=== PATIENT | male | born 1945 | race Caucasian/White ===

== ENCOUNTER 2024-04-20 15:25 | Inpatient (IN) ==
[2024-04-20 16:15] LABS: Basophils # (auto) 0.04 K/uL (0.00-0.20); Basophils % (auto) 0.5 %; Eosinophils # (auto) 0.05 K/uL (0.00-0.50); Eosinophils % (auto) 0.6 %; Hematocrit (blood only) 40.7 % (42.0-52.0); Hemoglobin 13.8 g/dl (14.0-18.0); Immature Granulocytes # (auto) 0.01 K/uL (0.01-0.20); Immature Granulocytes % (auto) 0.1 %; Lymphocytes # (auto) 0.97 K/uL (1.20-3.40); Lymphocytes % (auto) 11.5 %; Mean Corpuscular Hemoglobin 31.4 pg (25.0-34.0); Mean Corpuscular Hgb Conc 33.9 g/dL (32.0-36.0); Mean Corpuscular Volume 92.5 fL (80.0-100.0); Mean Platelet Volume 10.2 fL (9.4-12.4); Monocytes # (auto) 0.63 K/uL (0.11-0.59); Monocytes % (auto) 7.5 %; Neutrophils # (auto) 6.73 K/uL (1.40-6.50); Neutrophils % (auto) 79.8 %; Platelet Count 239 K/uL (130-400); RDW Coefficient of Variation 12.4 % (11.5-14.5); RDW Standard Deviation 42.5 fL (36.4-46.3); White Blood Count 8.43 K/ul (4.8-10.8)
[2024-04-20 16:27] LABS: Albumin Globulin Ratio 1.4 (0.9-2); Albumin Level 4.5 gm/dl (3.4-5.0); BUN Creatinine Ratio 34.3 (10-20); Bilirubin,Total 1.6 mg/dl (0.2-1.0); Calcium 10.3 mg/dl (8.6-10.3); Creatinine Clr Calc Pharmacy 40.3 ml/min; Globulin 3.3 gm/dl (2.5-4.0); Potassium 4.5 mmol/L (3.5-5.1); Total Protein 7.8 gm/dl (6.0-8.3)
[2024-04-20 16:35] LABS: Appearance Urine Clear (Clear); Bacteria Urine Automated None Seen (None Seen); Bilirubin Urine Negative (Negative); Blood Urine Negative (Negative); Color Urine Yellow; Epithelial Cell Urine Auto 0-2 /hpf (0-2); Glucose Urine UA 3+ (Negative); Ketones Urine Trace (Negative); Leukocyte Esterase Urine Negative (Negative); Nitrite Urine Negative (Negative); Protein Urine Trace (Negative); RBC Urine Automated 0-2 /hpf (0-2); Specific Gravity Urine 1.034 (1.000-1.030); Urobilinogen Urine Negative (Negative); WBC Urine Automated 0-5 /hpf (0-5)
[2024-04-20] MEDS: SODIUM CHLORIDE 0.9% 500 ML IV ONE (17:10)
--- NOTE | 2024-04-20 17:30 | Emergency Department Note ---
Impression & Plan Pancreatic mass, KATY (acute kidney injury), Ileus, Constipation ED Provider Note NAME: MADELIN AMIN AGE: 78 SEX: M : 1945 ARRIVES VIA: Walk-In INFORMANT: Patient ED PROVIDER(S): Rodo Marx MD CHIEF COMPLAINT: hyperglycemia, referred. PLAN: Disposition: Admit MEDICAL DECISION MAKING: The patient is a pleasant 78-year-old gentleman with a past medical history of type 2 diabetes, hypertension who presents to the emergency department via walk- in, accompanied by his for evaluation of ongoing elevated blood sugars over the past couple of months in the setting of having medication changes from metformin to Januvia. Patient reports frequent urination and fatigue. He reports chronic symptoms of constipation where he does move his bowels but has been dealing with hard stool and straining. He reports he was seen by his PCP office a week or so ago and had x-rays obtained. He reports CT imaging was recommended but he "wanted to think about it". He reports some nausea and poor appetite as well as a 40 pound weight loss over the past year. He reports feeling nauseated at times and having abdominal fullness but he denies any vomiting or abdominal pain. He denies any fevers or night sweats. On evaluation the patient is no acute distress, afebrile heart in the 110s and vital signs otherwise stable. Appears clinically dry. He appears cachectic. He has mild fullness of the abdomen but it is soft and nontender. No guarding or rebound. WBC and platelets within normal limits. H/H similar to prior range values. Glucose elevated in the 250s however chemistry without metabolic acidosis. Hemoglobin A1c is pending. Creatinine 1.43, slightly increased from prior with BUN of 49 and BUN/creatinine 34 suggestive of dehydration. Total bili 1.6, nonspecific and LFTs otherwise unremarkable. Lipase is normal. UA with trace ketones consistent patient's clinically dry appearance. No evidence of infection. Given the patient's report of unintended weight loss we agreed to proceed with CT of the abdomen pelvis. Findings are notable for a newly identified spiculated mass measuring approximately 5 cm and suspected to arise from the pancreatic tail. Additional description of suspected ileus versus bowel obstruction is noted however clinically the patient does not exhibit signs or symptoms of bowel obstruction and likely ileus. Given the patient's increased blood sugars over the past several weeks in the setting of CT imaging demonstrated new pancreatic mass patient and his agree with plan for admission for further management evaluation. [facility] who will evaluate the patient for admission. Further management per admitting team. Triage Nursing notes reviewed and agree them. Prior/external medical records reviewed Vital Signs: reviewed Differential diagnosis: Infection, dehydration, metabolic abnormality, hypo/hyperglycemia, electrolyte disturbance, anemia, hypoxia, cardiac sources, intracerebral event, toxicologic, neurologic, as well as other pathologies. ER treatment provided: See below. Diagnostics interpreted by me: Cardiac Monitoring: An order for continuous cardiac monitoring was placed and demonstrated Sinus tachycardia, 104 bpm, no ectopy, no overt ST elevation or depression. Laboratory studies: See below Imaging studies: See below Consultation(s): Case was discussed with Dr. Moreno, [facility] hospitalist, who will evaluate the patient for admission. HPI: The patient is a pleasant 78-year-old gentleman with a past medical history of type 2 diabetes, hypertension who presents to the emergency department via walk-in, accompanied by his for evaluation of ongoing elevated blood sugars over the past couple of months in the setting of having medication changes from metformin to Januvia. Patient reports frequent urination and fatigue. He reports chronic symptoms of constipation where he does move his bowels but has been dealing with hard stool and straining. He reports he was seen by his PCP office a week or so ago and had x-rays obtained. He reports CT imaging was recommended but he "wanted to think about it". He reports some nausea and poor appetite as well as a 40 pound weight loss over the past year. He reports feeling nauseated at times and having abdominal fullness but he denies any vomiting or abdominal pain. He denies any fevers or night sweats. ROS: See above HPI for pertinent positives & negatives. A total of 10 systems reviewed and were otherwise negative. VITALS:See Below PHYSICAL EXAMINATION: GENERAL: Awake, alert, in no distress, cachectic. HENT: Normocephalic, atraumatic. Oropharynx with dry mucous membranes and otherwise unremarkable. EYES: Normal conjunctiva. Sclera non-icteric. NECK: Supple. No nuchal rigidity. FROM. No JVD. RESPIRATORY: Clear to auscultation. CARDIAC: Tachycardic rate, normal rhythm. Extremities warm and well perfused. Pulses equal. ABDOMEN: Soft with mild lower abdominal fullness but non-distended. No tenderness to palpation. No rebound or guarding. MUSCULOSKELETAL: Chest examination reveals no tenderness. The back is symmetrical on inspection without obvious abnormality. There is no CVA tenderness to palpation. No joint edema. LOWER EXTREMITIES: Calves are equal size bilaterally and non-tender. No edema. No discoloration. NEURO: Normal sensorium. No sensory or motor deficits noted. SKIN: No rash or jaundice noted. 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, with necrosis of bone (Acute) Acquired foot deformity (Chronic) Medical History Left otitis media with effusion Right otitis media with effusion Multiple lipomas Arthritis Surgical History History of ankle surgery H/O carpal tunnel repair S/P hip replacement History of ankle joint replacement Social History Smoking Status: Never smoker Hx Alcohol Use: Yes Alcohol type: wine Alcohol Intake Frequency: Monthly or Less Alcohol Intake Frequency Comment: Weekly Hx Substance Use: Yes (THC cream on left ankle) Prescribed Medications: Other Preferred Language: Wallisian Communication Ability: Effective Visual Impairment: Limited Hearing Ability: Normal Beliefs That Will Affect Care: None marital status: Current Living Situation: Spouse current occupational status: retired 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 Feels Safe at Home: Yes Diet: diabetic Allergies Allergies Allergy/AdvReac Type Severity Reaction Status Date / Time avocado Allergy Mild SWELLING Verified 09/11/22 09:06 lisinopril AdvReac Intermediate cough Verified 09/11/22 09:06 losartan AdvReac Intermediate cough Verified 09/11/22 09:06 Home Meds Home Medications Medication Instructions Recorded Confirmed antiarthritic combination no.2 900 900 mg PO .D 02/05/20 09/11/22 mg tablet (glucosamine-chondroitin) coenzyme Q10 75 mg capsule (Ultra 75 mg PO DAILY 02/05/20 09/11/22 CoQ10) multivitamin (Daily Multi-Vitamin 1 tab PO DAILY 02/05/20 09/11/22 tablet) saw palmetto 160 mg capsule 160 mg PO DAILY 02/05/20 09/11/22 irbesartan 150 mg tablet 150 mg PO DAILY 05/18/22 09/11/22 metformin 500 mg tablet 500 mg PO BID 05/18/22 09/11/22 cholecalciferol (vitamin D3) 25 25 mcg PO DAILY 07/05/22 09/11/22 mcg (1,000 unit) capsule oxymetazoline 0.05 % nasal spray 2 spray intranasal Q12H PRN 08/11/22 09/11/22 (Afrin (oxymetazoline)) doxycycline hyclate 100 mg capsule 100 mg PO BID 08/16/22 09/11/22 Results & Data (ED) Vital Signs Vital Signs - 24 hr 04/20/24 15:33 04/20/24 17:09 04/20/24 17:23 Temperature 36.4 C L Temperature Source Temporal Artery Scan Pulse Rate 114 H 97 H Pulse Rate [Apical] 104 H Respiratory Rate 18 14 Respiratory Effort / Characteristics Non-Labored Respiratory Depth Normal Respiratory Pattern Regular Blood Pressure 113/71 Blood Pressure [Right Arm] 127/92 Blood Pressure Mean 85 Blood Pressure Mean [Right Arm] 103 Blood Pressure Position [Right Arm] Lying Pulse Oximetry 95 97 Oxygen Delivery Method Room Air Room Air Sepsis Recent Fever Within 48 Hours No Sepsis New/Unexplained Change in Mental Status N/A Sepsis Action Taken by Nursing No Action Required 04/20/24 19:07 Temperature Temperature Source Pulse Rate Pulse Rate [Apical] 104 H Respiratory Rate 24 Respiratory Effort / Characteristics Non-Labored Respiratory Depth Normal Respiratory Pattern Regular Blood Pressure Blood Pressure [Right Arm] 144/92 H Blood Pressure Mean Blood Pressure Mean [Right Arm] 109 Blood Pressure Position [Right Arm] Pulse Oximetry 96 Oxygen Delivery Method Room Air Sepsis Recent Fever Within 48 Hours Sepsis New/Unexplained Change in Mental Status Sepsis Action Taken by Nursing Laboratory Data Attestation: I reviewed the patient's lab results. 04/20/24 15:57 04/20/24 15:57 Lab Results 04/20/24 04/20/24 04/20/24 Range/Units 15:40 15:57 15:59 WBC 8.43 (4.8-10.8) K/ul RBC 4.40 L (4.70-6.10) M/uL Hgb 13.8 L (14.0-18.0) g/dl Hct 40.7 L (42.0-52.0) % MCV 92.5 (80.0-100.0) fL MCH 31.4 (25.0-34.0) pg MCHC 33.9 (32.0-36.0) g/dL RDW Std Deviation 42.5 (36.4-46.3) fL RDW Coeff of Олег 12.4 (11.5-14.5) % Plt Count 239 (130-400) K/uL MPV 10.2 (9.4-12.4) fL Immature Gran % (Auto) 0.1 % Neut % (Auto) 79.8 % Lymph % (Auto) 11.5 % [place] % (Auto) 7.5 % Eos % (Auto) 0.6 % Baso % (Auto) 0.5 % Neut # (Auto) 6.73 H (1.40-6.50) K/uL Lymph # (Auto) 0.97 L (1.20-3.40) K/uL [place] # (Auto) 0.63 H (0.11-0.59) K/uL Eos # (Auto) 0.05 (0.00-0.50) K/uL Baso # (Auto) 0.04 (0.00-0.20) K/uL Immature Gran # (Auto) 0.01 (0.01-0.20) K/uL Sodium 135 L (136-145) mmol/L Potassium 4.5 (3.5-5.1) mmol/L Chloride 102 (98-107) mmol/L Carbon Dioxide 23 (21-32) mmol/L Anion Gap 10 (3-11) BUN 49 H (6-23) mg/dl Creatinine 1.43 H (0.6-1.4) mg/dl Est Cr Clr Drug Dosing 40.3 ml/min eGFR 50.15 BUN/Creatinine Ratio 34.3 H (10-20) Glucose 257 H (70-99(Fasting)) mg/dl POC Glucose 235 H (70-99) mg/dl Calcium 10.3 (8.6-10.3) mg/dl Total Bilirubin 1.6 H (0.2-1.0) mg/dl AST 12 L (13-39) U/L ALT 12 (7-52) U/L Alkaline Phosphatase 82 (34-104) U/L Total Protein 7.8 (6.0-8.3) gm/dl Albumin 4.5 (3.4-5.0) gm/dl Globulin 3.3 (2.5-4.0) gm/dl Albumin/Globulin Ratio 1.4 (0.9-2) Lipase 14 (11-82) U/L Urine Color Yellow Urine Appearance Clear (Clear) Urine pH 5.0 (4.5-7.5) Ur Specific [place] 1.034 H (1.000-1.030) Urine Protein Trace H (Negative) Urine Glucose (UA) 3+ H (Negative) Urine Ketones Trace H (Negative) Urine Blood Negative (Negative) Urine Nitrite Negative (Negative) Urine Bilirubin Negative (Negative) Urine Urobilinogen Negative (Negative) Ur Leukocyte Esterase Negative (Negative) Urine WBC (Auto) 0-5 (0-5) /hpf Urine RBC (Auto) 0-2 (0-2) /hpf U Hyaline Cast (Auto) 6-10 H (0-2) /lpf U Epithel Cells (Auto) 0-2 (0-2) /hpf Urine Bacteria (Auto) None Seen (None Seen) Administered Medications Discontinued Medications Sodium Chloride (Nss) 500 mls @ 999 mls/hr IV .Q31M ONE Stop: 04/20/24 17:25 Last Infusion: 04/20/24 19:00 Dose: Infused Documented By: Admin: 04/20/24 17:10 Dose: 999 mls/hr Documented By: KAILASH Imaging Data Radiologist's Impression: Abdomen/Pelvis CT 04/20/24 17:27 CT abdomen without EXAMINATION: Abdomen and pelvis CT without CLINICAL HISTORY: Pain PRIORS: None TECHNIQUE: Contiguous axial images were obtained through the abdomen and pelvis without the use of intravenous contrast. Sagittal and coronal reformations are supplied. FINDINGS: Lung bases unremarkable. Evaluation of solid organs is limited without the use of intravenous contrast. Allowing for this, the liver, spleen, and kidneys are morphologically unremarkable. Allowing for the absence of intravenous contrast a spiculated soft tissue mass is present in the left retroperitoneum or pancreas, image 104, series 3 and image 45, series 300 and image 68, series 301, possibly arising from the pancreatic tail. This measures approximately 5.0 cm in anteroposterior dimension by 6.5 cm in transverse dimension by 4.4 cm in craniocaudal dimension. The pancreas appears atrophic. Adjacent adenopathy present. Multiple prominent lymph nodes present in the mesentery of the right lower quadrant. Moderate to advanced atherosclerotic disease. A moderate amount of formed stool in the sigmoid colon. Moderate osseous demineralization noted with advanced degenerative change of the lumbar spine Moderate ascites is present. Moderate free fluid in the pelvis. Left total hip arthroplasty present. The noncontrast enhanced kidneys are symmetric with nonobstructing calcifications noted. A moderate amount of gas and stool present in the colon. Multiple dilated loops of fluid-filled small bowel are present, measuring up to 2.8 cm Dilated loops of large bowel present, involving the ascending colon measuring up to 7.9 cm. No extraluminal gas is identified. IMPRESSION: 1. Spiculated soft tissue mass, possibly arising from the pancreatic tail, not further characterized without intravenous contrast, concerning for malignancy with dilated fluid and gas-filled loops of large and small bowel which may suggest ileus versus obstruction. Please correlate with clinical history. 2. Moderate ascites and adenopathy present. ACT 112: Positive. There are findings on this examination that require communication between the performing entity and the patient following Patient Test Result Information Act ([place] ACT 112) guidelines. Electronically signed by Nai David 04-20-2024 6:29 PM Discharge Plan Visit Data Chief Complaint: Hyperglycemia Stated Complaint: POS KETOASISDOSIS, DIABETIC ED Provider: Rodo Marx Discharge Problem: Pancreatic mass, KATY (acute kidney injury), Ileus, Constipation Forms Stand Alone Forms: [facility] [employer] Prescriptions Prescriptions: No Action multivitamin [Daily Multi-Vitamin] Tablet 1 tab PO DAILY Ultra CoQ10 75 mg capsule 75 mg PO DAILY glucosamine-chondroitin 900 mg tablet 900 mg PO .D saw palmetto 160 mg capsule 160 mg PO DAILY Rx Instructions: give with meal/snack cholecalciferol (vitamin D3) 25 mcg (1,000 unit) capsule 25 mcg PO DAILY irbesartan 150 mg tablet 150 mg PO DAILY metformin 500 mg tablet 500 mg PO BID oxymetazoline [Afrin (oxymetazoline)] 0.05 % spray,non-aerosol 2 spray intranasal Q12H PRN Rx Instructions: prior to hyperbaric oxygen therapy as needed for congestion doxycycline hyclate 100 mg capsule 100 mg PO BID Referrals Referrals: Aoms Gomez DO [Primary Care Provider] - Discharge Problem: Constipation Qualifiers: Constipation type: unspecified constipation type Qualified Code(s): K59.00 - Constipation, unspecified
--- NOTE | 2024-04-20 18:34 | CT Scan Report ---
CT abdomen without EXAMINATION: Abdomen and pelvis CT without CLINICAL HISTORY: Pain PRIORS: None TECHNIQUE: Contiguous axial images were obtained through the abdomen and pelvis without the use of intravenous contrast. Sagittal and coronal reformations are supplied. FINDINGS: Lung bases unremarkable. Evaluation of solid organs is limited without the use of intravenous contrast. Allowing for this, the liver, spleen, and kidneys are morphologically unremarkable. Allowing for the absence of intravenous contrast a spiculated soft tissue mass is present in the left retroperitoneum or pancreas, image 104, series 3 and image 45, series 300 and image 68, series 301, possibly arising from the pancreatic tail. This measures approximately 5.0 cm in anteroposterior dimension by 6.5 cm in transverse dimension by 4.4 cm in craniocaudal dimension. The pancreas appears atrophic. Adjacent adenopathy present. Multiple prominent lymph nodes present in the mesentery of the right lower quadrant. Moderate to advanced atherosclerotic disease. A moderate amount of formed stool in the sigmoid colon. Moderate osseous demineralization noted with advanced degenerative change of the lumbar spine Moderate ascites is present. Moderate free fluid in the pelvis. Left total hip arthroplasty present. The noncontrast enhanced kidneys are symmetric with nonobstructing calcifications noted. A moderate amount of gas and stool present in the colon. Multiple dilated loops of fluid-filled small bowel are present, measuring up to 2.8 cm Dilated loops of large bowel present, involving the ascending colon measuring up to 7.9 cm. No extraluminal gas is identified. IMPRESSION: 1. Spiculated soft tissue mass, possibly arising from the pancreatic tail, not further characterized without intravenous contrast, concerning for malignancy with dilated fluid and gas-filled loops of large and small bowel which may suggest ileus versus obstruction. Please correlate with clinical history. 2. Moderate ascites and adenopathy present. ACT 112: Positive. There are findings on this examination that require communication between the performing entity and the patient following Patient Test Result Information Act ([place] ACT 112) guidelines. Electronically signed by Nai David 04-20-2024 6:29 PM
--- NOTE | 2024-04-20 20:11 | History & Physical Report ---
Date of Service April 20, 2024 Assessment & Plan (1) Ileus: Plan Admitting CTAP: 1. Spiculated soft tissue mass, possibly arising from the pancreatic tail, not further characterized without intravenous contrast, concerning for malignancy with dilated fluid and gas-filled loops of large and small bowel which may suggest ileus versus obstruction. Please correlate with clinical history. 2. Moderate ascites and adenopathy present. Pancreatic tail mass Elevated bilirubin level Unintentional weight loss: 40 pound weight loss in the last 6 months, associated with occasional nausea and poor appetite. Patient presents with stomach pain, unintentional weight loss, feeling progressively tired and sleeping a lot. Admitting CTAP as above. Will consult oncology and GI for guidance on further workup. Patient will need CT scan of abdomen pelvis and CT chest with IV contrast to rule out metastasis once renal function is better. Ileus/constipation: pt moving bowels every few days, no belly pain, is moving gas. Will use miralax and dulcolax pr scheduled. follow clinically. Acute kidney injury: Baseline creatinine of 1.0, admitting creatinine of 1.43. Likely prerenal in the setting of poor p.o. intake prior to arrival. CTAP with no hydronephrosis. Continue with IV fluid, hold irbesartan. Labs in AM. Uncontrolled diabetes: In the setting of pancreatic tail mass. Glycemic pharmacy consult. in service educator consult. repeat A1c. Other chronic medical conditions: HTN, HLD, Gout---- continue with/resume home meds as and when able. Patient's home medications: Celecoxib 200 mg daily in the morning, Colace twice a day, empagliflozin 25 mg 1 tab by mouth in the morning, glipizide 5 mg twice a day, irbesartan 75 mg daily. Patient does not take metformin anymore. History of Present Illness Chief Complaint: stomach pain Primary Care Provider: Amos Gomez DO 78-year-old male with PMH of subacute thyroiditis, HLD, idiopathic chronic gout of multiple sites without tophus, diabetes mellitus, chronic rhinitis, severe obstructive sleep apnea, hypertension, constipation, osteomyelitis presents to the ED with complaint of stomach pain for 3 to 4 weeks, feeling tired all the time, sleeping a lot. Patient reports he has occasional nausea and poor appetite since last 6 months and has lost 40 pounds weight in the same duration. Patient denies vomiting. Patient reports stomach pain on and off for 3 to 4 weeks, no radiation. Patient denies fever/sore throat/cough/chest pain/pain or burning while passing urine. Patient reports constipation for about 3 to 4 weeks, is moving gas, denies belly pain but now moving bowels every few days instead of his usual habits of daily. Patient denies smoking/alcohol use/recreational drug use. Medications reviewed with the patient and his at bedside. CT scan of the abdomen pelvis discussed with the patient and his at bedside, further plan of care regarding need for further diagnostic workup while in here for pancreatic tail mass has been explained to them. They voiced understanding. Full code Allergies Allergy/AdvReac Type Severity Reaction Status Date / Time avocado Allergy Mild SWELLING Verified 09/11/22 09:06 lisinopril AdvReac Intermediate cough Verified 09/11/22 09:06 losartan AdvReac Intermediate cough Verified 09/11/22 09:06 Home Medications Medication Instructions Recorded Confirmed Type antiarthritic combination no.2 900 900 mg PO .D 02/05/20 09/11/22 History mg tablet (glucosamine-chondroitin) coenzyme Q10 75 mg capsule (Ultra 75 mg PO DAILY 02/05/20 09/11/22 History CoQ10) multivitamin (Daily Multi-Vitamin 1 tab PO DAILY 02/05/20 09/11/22 History tablet) saw palmetto 160 mg capsule 160 mg PO DAILY 02/05/20 09/11/22 History irbesartan 150 mg tablet 150 mg PO DAILY 05/18/22 09/11/22 History metformin 500 mg tablet 500 mg PO BID 05/18/22 09/11/22 History cholecalciferol (vitamin D3) 25 25 mcg PO DAILY 07/05/22 09/11/22 History mcg (1,000 unit) capsule oxymetazoline 0.05 % nasal spray 2 spray intranasal Q12H PRN 08/11/22 09/11/22 History (Afrin (oxymetazoline)) doxycycline hyclate 100 mg capsule 100 mg PO BID 08/16/22 09/11/22 History Past Med/Surg History Problem List (Updated 04/20/24 @ 19:38 by Rodo Marx MD) Constipation (Acute) Ileus (Acute) KATY (acute kidney injury) (Acute) Pancreatic mass (Acute) 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 HTN (hypertension) Diabetic peripheral neuropathy associated with type 2 diabetes mellitus Tachycardia (Acute) Barotrauma, otic (Acute) 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, with necrosis of bone (Acute) Acquired foot deformity (Chronic) Medical History Left otitis media with effusion Right otitis media with effusion Multiple lipomas Arthritis Surgical History History of ankle surgery H/O carpal tunnel repair S/P hip replacement History of ankle joint replacement Social History Smoking Status: Never smoker Hx Alcohol Use: Yes Alcohol type: wine Alcohol Intake Frequency: Monthly or Less Alcohol Intake Frequency Comment: Weekly Hx Substance Use: Yes (THC cream on left ankle) Prescribed Medications: Other Preferred Language: [place] Rican Communication Ability: Effective Visual Impairment: Limited Hearing Ability: Normal Beliefs That Will Affect Care: None marital status: Current Living Situation: Spouse current occupational status: retired 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 Feels Safe at Home: Yes Diet: diabetic Review of Systems Review of Systems: Negative otherwise mentioned in HPI. Physical Exam Physical Exam: GENERAL: Alert and oriented x3. NAD, on RA. Appears frail/weak/lean and thin. HEENT: No pallor, no icterus. Pupils equal, round and reactive to light. Oral mucosa dry. NECK: No JVD, no neck masses. HEART: S1 and S2 heard. Regular rate and rhythm. HR in 101. No murmur, no gallop. RESPIRATORY SYSTEM: Normal AP diameter. No accessory muscle use. No wheezing, no crackles. ABDOMEN: Soft, bowel sounds present, nontender, no distention. CENTRAL NERVOUS SYSTEM: No facial droop. Speech is clear. Obeys simple commands. Moves extremities. EXTREMITIES: No edema, no erythema seen. Ulnar deviation of b/l hand. No calf tenderness. Results & Data Results & Data Vital Signs (Past 12 Hours) Vital Signs Temp Pulse Pulse Resp BP BP Pulse Ox 04/20/24 19:07 104 H 24 144/92 H 96 04/20/24 17:23 97 H 04/20/24 17:09 104 H 14 127/92 97 04/20/24 15:33 36.4 C L 114 H 18 113/71 95 O2 Del Method 04/20/24 19:07 Room Air 04/20/24 17:23 04/20/24 17:09 Room Air 04/20/24 15:33 Room Air
[2024-04-20] MEDS ORDERED: PHARMACY GLYCEMIC MGMT CONSULT PRN (20:29)
[2024-04-20] MEDS ORDERED: MAGNESIUM HYDROXIDE SUSP 30 ML UDC PO PRN (20:29)
[2024-04-20] MEDS ORDERED: ONDANSETRON INJ 2 MG/ML 2 ML VIAL IV PRN (20:29)
[2024-04-20] MEDS ORDERED: GLUCOSE 40% GEL 15 GM TUBE PO PRN (20:29)
[2024-04-20] MEDS ORDERED: GLUCAGON FOR INJ 1 MG VIAL SQ PRN (20:29)
[2024-04-20] MEDS ORDERED: ALUMINUM/MAGNESIUM SUSP 30 ML UDC PO PRN (20:29)
[2024-04-20] MEDS ORDERED: DEXTROSE 50% 50 ML SYRINGE IV PRN (20:29)
[2024-04-20] MEDS ORDERED: CARBOHYDRATES FOR HYPOGLYCEMIA PO PRN (20:29)
[2024-04-20] MEDS ORDERED: GLUCOSE 10 TAB/TUBE PO PRN (20:29)
[2024-04-20] MEDS: HEPARIN SOD 5,000 UNIT/0.5 ML VIAL SQ SCH (21:47)
[2024-04-20] MEDS: POLYETHYLENE (MIRALAX) 17 GM PACK PO SCH (21:47)
[2024-04-20] MEDS: SODIUM CHLORIDE 0.9% 1,000 ML IV SCH (21:48)
[2024-04-20] MEDS: bisacodyL 10 MG SUPP PR SCH (21:53)
[2024-04-20] MEDS: INSULIN ASPART PER UNIT CHARGE SC SCH (22:00)
[2024-04-21] MEDS: ACETAMINOPHEN 325 MG TAB PO PRN (00:42)
[2024-04-21 06:17] LABS: Hematocrit (blood only) 36.5 % (42.0-52.0); Hemoglobin 12.3 g/dl (14.0-18.0); Mean Corpuscular Hemoglobin 31.3 pg (25.0-34.0); Mean Corpuscular Hgb Conc 33.7 g/dL (32.0-36.0); Mean Corpuscular Volume 92.9 fL (80.0-100.0); Mean Platelet Volume 10.5 fL (9.4-12.4); Platelet Count 182 K/uL (130-400); RDW Coefficient of Variation 12.2 % (11.5-14.5); RDW Standard Deviation 42.3 fL (36.4-46.3); Red Blood Count 3.93 M/uL (4.70-6.10); White Blood Count 4.72 K/ul (4.8-10.8)
[2024-04-21 06:45] LABS: Albumin Globulin Ratio 1.4 (0.9-2); Albumin Level 3.7 gm/dl (3.4-5.0); BUN Creatinine Ratio 35.8 (10-20); Bilirubin,Total 1.5 mg/dl (0.2-1.0); Creatinine Clr Calc Pharmacy 41.5 ml/min; Globulin 2.6 gm/dl (2.5-4.0); Magnesium 2.1 mg/dl (1.7-2.4); Phosphorus 4.1 mg/dl (2.5-4.9); Potassium 4.5 mmol/L (3.5-5.1); Total Protein 6.3 gm/dl (6.0-8.3)
--- NOTE | 2024-04-21 08:12 | Oncology Consultation ---
Date of Consultation April 21, 2024 Assessment & Plan (1) Pancreatic mass: (2) KATY (acute kidney injury): (3) Ileus: Plan 78-year-old gentleman who presented with GI symptoms and imaging suggestive of possible tail of pancreas mass, adenopathy and ascites. CA 19-9 is pending -Recommend considering IR guided diagnostic paracentesis since he has moderate ascites as this would help with diagnosis and staging. If this demonstrates malignancy, would be stage IV for which goals of treatment will be to prolong life and improve symptoms. If ascitic fluid is negative for malignancy, would recommend EUS with biopsy. -If renal function continues to improve, recommend getting CT chest, abdomen and pelvis with contrast for staging purposes as well. Thank you for this consult. Oncology will continue following patient while in the hospital. Please feel free to call if you have any further questions. History of Present Illness Reason for Consultation: Suspected pancreatic mass Attending Physician: Christiano Ayala MD History of Present Illness 78-year-old gentleman with medical history significant for gout, hypertension, right foot osteomyelitis who was admitted to [facility] on 04/20/2024 after presenting to the ER with fatigue, abdominal pain and weight loss. Labs obtained on admission was significant for KATY with creatinine of 1.4 and BUN of 49. CT abdomen and pelvis without contrast revealed spiculated soft tissue mass possibly arising from the pancreatic tail concerning for malignancy with dilated fluid and gas-filled loops of large and small bowel which may suggest ileus versus obstruction, moderate ascites and mesenteric lymphadenopathy. He endorses more than 40 pounds weight loss over the past 6 months. Also complains of fatigue, poor appetite. Was diagnosed with diabetes about a year ago. Allergies Allergy/AdvReac Type Severity Reaction Status Date / Time avocado Allergy Mild SWELLING Verified 09/11/22 09:06 lisinopril AdvReac Intermediate cough Verified 09/11/22 09:06 losartan AdvReac Intermediate cough Verified 09/11/22 09:06 Home Medications Medication Instructions Recorded Confirmed Type celecoxib 200 mg capsule 200 mg PO DAILY 04/21/24 04/21/24 History docusate sodium 100 mg capsule 100 mg PO BID 04/21/24 04/21/24 History empagliflozin 25 mg tablet 25 mg PO DAILY 04/21/24 04/21/24 History glipizide 5 mg tablet 5 mg PO BID 04/21/24 04/21/24 History Patient History Medical History Left otitis media with effusion Right otitis media with effusion Multiple lipomas Arthritis Surgical History History of ankle surgery H/O carpal tunnel repair S/P hip replacement History of ankle joint replacement Social History Smoking Status: Never smoker Hx Alcohol Use: Yes Alcohol type: beer Alcohol Intake Frequency: Monthly or Less Alcohol Intake Frequency Comment: Weekly Hx Substance Use: Yes Prescribed Medications: Other Substance Use Type Other:: Marijuana via cream to feet Preferred Language: Luxembourgish Communication Ability: Effective Visual Impairment: Limited Hearing Ability: Normal Comic Artist Required: No Beliefs That Will Affect Care: None marital status: Current Living Situation: Spouse current occupational status: retired 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 Other Information That Helps Us Care for You: No Feels Safe at Home: Yes Safety Concerns: Feels Safe At This Time Diet: diabetic Assistive Devices: Glasses Results & Data Vital Signs (Past 12 Hours) Vital Signs Temp Pulse Pulse Pulse Resp BP Pulse Ox 04/21/24 07:42 36.5 C 86 16 115/70 98 04/21/24 07:00 90 04/21/24 03:01 36.3 C L 94 H 18 102/68 94 04/20/24 23:45 36.6 C 78 16 134/85 92 04/20/24 23:19 97 H 04/20/24 21:45 97 H 12 135/82 95 04/20/24 21:22 97 H O2 Del Method 04/21/24 07:42 Room Air 04/21/24 07:00 04/21/24 03:01 Room Air 04/20/24 23:45 Room Air 04/20/24 23:19 04/20/24 21:45 04/20/24 21:22
--- NOTE | 2024-04-21 08:12 | Hospitalist Progress Note ---
Date of Service April 21, 2024 Assessment & Plan (1) Ileus: Plan This is a 78-year-old male who has a significant past medical history of T2DM, HTN, idiopathic chronic gout, constipation, EDWARD, generalized arthritis, history osteomyelitis who presented to ED 2/2 stomach pain x 3-4 weeks, fatigue and weight loss of 40lbs in 6 months. Admitting CTAP: 1. Spiculated soft tissue mass, possibly arising from the pancreatic tail, not further characterized without intravenous contrast, concerning for malignancy with dilated fluid and gas-filled loops of large and small bowel which may suggest ileus versus obstruction. Please correlate with clinical history. 2. Moderate ascites and adenopathy present. Pancreatic tail mass Elevated bilirubin level Unintentional weight loss: 40 pound weight loss in the last 6 months, associated with occasional nausea and poor appetite. Patient presents with stomach pain, unintentional weight loss, feeling progressively tired and sleeping a lot. Admitting CTAP as above. Will consult oncology and GI for guidance on further workup - appreciate recs CEA pending T bili stable at 1.5, no jaundice Patient will need CT scan of abdomen pelvis and CT chest with IV contrast to rule out metastasis once renal function is better. Will await further recs from specialists to determine what testing to be done inpt obtain PT/OT consults, anticipate d/c home when plan in place Ileus/constipation: pt moving bowels every few days, no belly pain, is moving gas. He had multiple episodes of fecal incontinence overnight, will resume home colace, check KUB Acute kidney injury: Baseline creatinine of 1.0, admitting creatinine of 1.43. Mild improvement, Likely prerenal in the setting of poor p.o. intake prior to arrival. CTAP with no hydronephrosis. Continue with IV fluid. Uncontrolled diabetes: In the setting of pancreatic tail mass. Glycemic pharmacy consult. perinatal educator consult. repeat A1c. Severe protein calorie malnutrition: in setting of suspected underlying malignancy, consult machine puller HTN: prior hx, previously on irbesartan but currently not taking HLD: currently not on meds, outpt with elevated total chol 245, ldl 153 - will defer tx to outpt team Other chronic medical conditions: HTN, HLD, Gout---- continue with/resume home meds as and when able. DVT ppx: SQ heparin FULL CODE PCP: Amanda Moeller Dispo: admit to med tele, not yet medically ready for discharge Pt was seen and examined in collaboration with Dr. Ayala, please see addendum I spent a total of 52 minutes coordinating, documenting and providing care for this patient excluding time spent in the performance of separately billed servic es or time spent by another provider/QHP. Admission and Anticipated Discharge Date Admission Date: April 20, 2024 Supervising Physician Co-Signing Physician Notes Pt seen and examined by va, care coordinated w/ B. GRACE Valdes, pls refer to her note above for further detail. Pt had several loose stools, feels abdominal pain has significantly improved. Currently lying in bed in NAD. Pt's present at the bedside and also provides history. Pt seen by GI - plan for outpt GI follow up. EUS and FNA biopsy. Oncology and surgery also consulted. MD Lucy Subjective Pt was seen in 285-1. He reports a few episodes of fecal incontinence last night after bowel meds. He is passing minimal flatus. He denies f/c/s, chest pain, sob. overall poor appetite. He is down regarding all of his latest news. He lives with his at home. Review of Systems Review of Systems: All systems reviewed & are unremarkable except as noted in HPI & below Physical Exam Physical Exam: Gen: WD/WN, NAD, A&O x3 HEENT: Normocephalic, atraumatic, conjunctivae moist, sclerae anicteric, mucous membranes moist. Lung: Clear to Auscultation bilaterally, no wheezes/rales/rhonchi Heart: Regular rate, regular rhythm, no murmurs, rubs, or gallops Abdomen: Soft, NT, ND +BS x 4 Extremities: No edema Skin: Warm, no rash, negative turgor. Results & Data Results & Data Vital Signs (Past 12 Hours) Vital Signs Temp Pulse Pulse Pulse Resp BP Pulse Ox 04/21/24 07:42 36.5 C 86 16 115/70 98 04/21/24 07:00 90 04/21/24 03:01 36.3 C L 94 H 18 102/68 94 04/20/24 23:45 36.6 C 78 16 134/85 92 04/20/24 23:19 97 H 04/20/24 21:45 97 H 12 135/82 95 04/20/24 21:22 97 H O2 Del Method 04/21/24 07:42 Room Air 04/21/24 07:00 04/21/24 03:01 Room Air 04/20/24 23:45 Room Air 04/20/24 23:19 04/20/24 21:45 04/20/24 21:22 Laboratory Results Short CBC 04/20/24 04/21/24 Range/Units 15:57 05:49 WBC 8.43 4.72 L (4.8-10.8) K/ul Hgb 13.8 L 12.3 L (14.0-18.0) g/dl Hct 40.7 L 36.5 L (42.0-52.0) % Plt Count 239 182 (130-400) K/uL BMP 04/20/24 04/21/24 15:57 05:49 Sodium 135 L 136 Potassium 4.5 4.5 Chloride 102 104 Carbon Dioxide 23 20 L BUN 49 H 49 H Creatinine 1.43 H 1.37 Glucose 257 H 193 H Calcium 10.3 9.0 Liver Function 04/20/24 04/21/24 Range/Units 15:57 05:49 Total Bilirubin 1.6 H 1.5 H (0.2-1.0) mg/dl AST 12 L 10 L (13-39) U/L ALT 12 9 (7-52) U/L Alkaline Phosphatase 82 64 (34-104) U/L Albumin 4.5 3.7 (3.4-5.0) gm/dl Urine 04/20/24 Range/Units 15:59 Urine Color Yellow Urine Appearance Clear (Clear) Urine pH 5.0 (4.5-7.5) Ur Specific [place] 1.034 H (1.000-1.030) Urine Protein Trace H (Negative) Urine Glucose (UA) 3+ H (Negative) I have independently reviewed and interpreted patient's CBC, BMP, A1C, Mag Medications Administered Current Inpatient Medications Acetaminophen (Acetaminophen 325 Mg Tab) 650 mg PO Q4H PRN PRN Reason: Pain or Fever Stop: 05/20/24 20:28 Last Admin: 04/21/24 00:42 Dose: 650 mg Al Hydrox/Mg Hydrox/Simethicone (Aluminum/Magnesium Susp 30 Ml Udc) 15 ml PO Q4H PRN PRN Reason: Dyspepsia Stop: 05/20/24 20:28 Dextrose (Dextrose 50% 50 Ml Syringe) 25 - 50 ml IV UD PRN; Protocol PRN Reason: Hypoglycemia Protocol Stop: 05/20/24 20:28 Glucagon (Glucagon For Inj 1 Mg Vial) 1 mg SQ UD PRN; Protocol PRN Reason: Hypoglycemia Protocol Stop: 05/20/24 20:28 Glucose (Glucose 40% Gel 15 Gm Tube) 15 - 30 gm PO UD PRN; Protocol PRN Reason: Hypoglycemia Protocol Stop: 05/20/24 20:28 Glucose (Glucose 10 Tab/Tube) 4 - 8 tab PO UD PRN; Protocol PRN Reason: Hypoglycemia Protocol Stop: 05/20/24 20:28 Heparin Sodium (Porcine) (Heparin Sod 5,000 Unit/0.5 Ml Vial) 5,000 units SQ Q12 TALISHA Stop: 05/20/24 20:59 Last Admin: 04/21/24 09:15 Dose: 5,000 units Sodium Chloride (Nss) 1,000 mls @ 70 mls/hr IV .[id number] TALISHA Stop: 04/22/24 00:49 Last Admin: 04/20/24 21:48 Dose: 70 mls/hr Insulin Aspart (Insulin Aspart Per Unit Charge) 0 units SC ACHS TALISHA Stop: 05/20/24 20:59 Last Admin: 04/21/24 09:15 Dose: 2 units Magnesium Hydroxide (Magnesium Hydroxide Susp 30 Ml Udc) 30 ml PO Q12H PRN PRN Reason: Constipation Stop: 05/20/24 20:28 Miscellaneous (Carbohydrates For Hypoglycemia ) 15 - 30 gm PO UD PRN PRN Reason: Hypoglycemia Protocol Stop: 05/20/24 20:28 Miscellaneous Information (Pharmacy Glycemic Mgmt Consult) 1 each N/A UD PRN PRN Reason: Consult Stop: 05/20/24 20:28 Ondansetron HCl (Ondansetron Inj 2 Mg/Ml 2 Ml Vial) 4 mg IV Q6H PRN PRN Reason: Nausea Stop: 05/20/24 20:28
--- NOTE | 2024-04-21 10:50 | Pharmacy Report ---
Pharmacy Glycemic Short Note 2 - Date of Service April 21, 2024 - Glycemic Short BSG Results (Last 24 hours): 04/20/24 04/20/24 04/20/24 15:40 15:57 21:03 Glucose 257 H POC Glucose 235 H 179 H 04/20/24 04/21/24 04/21/24 23:05 05:49 08:08 Glucose 193 H POC Glucose 159 H 172 H OUTPATIENT ANTIDIABETIC REGIMEN: * jardiance 25 mg po daily, glipizide 5 mg bid - per provider notes ASSESSMENT: * 78 year old admitted with abdominal pain, concerns for ileus or bowel obstruction. Pharmacy consulted for glycemic management, only on oral agents outpatient. Continue novolog weight based stress 2 dosing for now. Hold basal. A1c pending. PLAN FOR INPATIENT GLYCEMIC CONTROL: * Hold outpatient oral diabetes medications * Basal insulin * Lantus - hold * Bolus insulin * NovoLog per scale ACHS or Q6hrs while NPO * Goal Range: Low 110 mg/dL - High 140 mg/dL * Correction Factor: 30 mg/dL/unit * Nutritional / Prandial insulin per carb ratio of 1 unit per 10 grams CHO consumed
--- NOTE | 2024-04-21 11:08 | Gastrointestinal Consultation ---
Date of Consultation April 21, 2024 Assessment & Plan (1) Constipation: (2) Pancreatic mass: Plan Patient presented to the ED with abdominal pain, constipation, and 40 lb weight loss over several months. He tells me that he has been moving his bowels since admission. He had imaging concerning for possible pancreatic mass. - continue with miralax 17gm daily and dulcolox daily for constipation. - Can consider further imaging with contrast when renal function improves vs EUS as outpatient to further evaluate pancreatic findings. - will discuss further with Dr. Moreira, further recommendations to follow. Supervising Physician Co-Signing Physician Notes I personally saw and examined the patient. I have reviewed the chart and agree with the documentation provided by the CLOUD ADMINISTRATOR including discussion about the assessment, treatment and plan. Briefly, 78 year old male with a past medical history of subacute thyroiditis, HLD, idiopathic chronic gout of multiple sites without tophus, diabetes mellitus, chronic rhinitis, severe obstructive sleep apnea, hypertension, constipation, osteomyelitis who presented to the ED on 04/20 with complaint of stomach pain for 3 to 4 weeks, constipation for 3 to 4 weeks, and a 40 lb weight loss over the past 6 months. During work up in the ED he had imaging concerning for soft tissue mass possibly arising from the pancreatic tail. After moving his bowels, he feels better. He had a lot of diarrhea yesterday. likely this is resolving ileus. CT scan does show a 5 cm spiculated soft tissue mass arising off the pancreatic tail with local regional lymphadenop athy. Tissue diagnosis of this and a better imaging study. He states that he cannot tolerate an MRI as he is quite claustrophobic and will not sit still for 45 minutes given his kidney insufficiency, I think the best imaging and diagnostic study as an outpatient EUS with FNA. GI will set this up for him and have him follow-up with Dr. Michael Burch at [facility] in [place]. Continue GI bowel regimen as outlined above. If he tolerates diet, he can follow-up with us outpatient. He will need a CA 19-9 and his CEA sent today please History of Present Illness Reason for Consultation: pancreatic mass / elevated total bili Requesting Physician: Gonzalez Moreno MD Attending Physician: Christiano Ayala MD History of Present Illness Patient is a 78 year old male with a past medical history of subacute thyroiditis, HLD, idiopathic chronic gout of multiple sites without tophus, diabetes mellitus, chronic rhinitis, severe obstructive sleep apnea, hypertension, constipation, osteomyelitis who presented to the ED on 04/20 with complaint of stomach pain for 3 to 4 weeks, constipation for 3 to 4 weeks, and a 40 lb weight loss over the past 6 months. During work up in the ED he had imaging concerning for soft tissue mass possibly arising from the pancreatic tail. He was admitted and tells me that since this time he was able to move his bowels and feels like his abdominal pain did improve with this. Currently, he denies any pain. he denies any blood in the stools or melena. no nausea, vomiting, reflux. 04/21 T bili 1.5, rest of LFTs unremarkable. 04/20 T bili 1.6, rest of LFTs unremarkable. CT 04/20/24 Spiculated soft tissue mass, possibly arising from the pancreatic tail, not further characterized without intravenous contrast, concerning for malignancy with dilated fluid and gas-filled loops of large and small bowel which may suggest ileus versus obstruction. Please correlate with clinical history. Moderate ascites and adenopathy present. Allergies Allergy/AdvReac Type Severity Reaction Status Date / Time avocado Allergy Mild SWELLING Verified 09/11/22 09:06 lisinopril AdvReac Intermediate cough Verified 09/11/22 09:06 losartan AdvReac Intermediate cough Verified 09/11/22 09:06 Home Medications Medication Instructions Recorded Confirmed Type celecoxib 200 mg capsule 200 mg PO DAILY 04/21/24 04/21/24 History docusate sodium 100 mg capsule 100 mg PO BID 04/21/24 04/21/24 History empagliflozin 25 mg tablet 25 mg PO DAILY 04/21/24 04/21/24 History glipizide 5 mg tablet 5 mg PO BID 04/21/24 04/21/24 History Patient History Medical History Left otitis media with effusion Right otitis media with effusion Multiple lipomas Arthritis Surgical History History of ankle surgery H/O carpal tunnel repair S/P hip replacement History of ankle joint replacement Social History Smoking Status: Never smoker Hx Alcohol Use: Yes Alcohol type: beer Alcohol Intake Frequency: Monthly or Less Alcohol Intake Frequency Comment: Weekly Hx Substance Use: Yes Prescribed Medications: Other Substance Use Type Other:: Marijuana via cream to feet Preferred Language: Citizen Of [place] Communication Ability: Effective Visual Impairment: Limited Hearing Ability: Normal Lap Machine Operator Required: No Beliefs That Will Affect Care: None marital status: Current Living Situation: Spouse current occupational status: retired 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 Other Information That Helps Us Care for You: No Feels Safe at Home: Yes Safety Concerns: Feels Safe At This Time Diet: diabetic Assistive Devices: Glasses Review of Systems Review of Systems: All systems reviewed & are unremarkable except as noted in HPI & below Physical Exam Constitutional: WD/WN, vitals as above Respiratory: normal respiratory effort, lungs clear to auscultation Cardiovascular: Rate/Rhythm: regular rate and regular rhythm Gastrointestinal (Abdomen): normal bowel sounds, soft, nontender, no hepatosplenomegaly Psychiatric: Orientation: alert and oriented x 3 Affect: euthymic affect Results & Data Vital Signs (Past 12 Hours) Vital Signs Temp Pulse Pulse Resp BP Pulse Ox O2 Del Method 04/21/24 07:42 97.7 F 86 16 115/70 98 Room Air 04/21/24 07:00 90 04/21/24 03:01 97.3 F L 94 H 18 102/68 94 Room Air 04/20/24 23:45 97.9 F 78 16 134/85 92 Room Air 04/20/24 23:19 97 H Coding Level of Care Code 37026 INT INP/OBS CARE 255MIN Diagnoses Constipation K59.00 Constipation type: unspecified constipation type Pancreatic mass K86.89 (1) Constipation Constipation type: unspecified constipation type Qualified Code(s): K59.00 - Constipation, unspecified
[2024-04-21 11:50] LABS: Estimated Average Glucose 183 mg/dl
[2024-04-21 11:51] LABS: Estimated Average Glucose 189 mg/dl; Hemoglobin A1C 8.2 % (4.5-5.6)
[2024-04-21] MEDS ORDERED: FAMOTIDINE 20 MG TAB PO PRN (12:00)
--- NOTE | 2024-04-21 13:02 | XRay Report ---
KUB CLINICAL HISTORY: Evaluate ileus. COMPARISON STUDY: CT of the abdomen and pelvis April 20, 2024. FINDINGS: Left hip arthroplasty is incidentally noted. There is no evidence for free air on supine ex am. Moderate distention of small bowel is unchanged. Distention of the large bowel is unchanged or sl ightly improved since prior exam. IMPRESSION: Small and large bowel dilatation. Large bowel dilatation slightly decreased since prior CT. These findings suggest a colonic obstruction at the level of the splenic flexure due to a neopla stic process within the left upper quadrant, better depicted on CT of April 20, 2024. ACT 112: Negative or not required by law. Electronically signed by: Ravin Mclaughlin M.D. 04/21/2024 1:00 PM
--- NOTE | 2024-04-21 16:13 | Surgery Consultation ---
Date of Consultation April 21, 2024 Assessment & Plan (1) Ileus: This is a 78yM with a PMH of HTN, DM2, multiple foot/toe/ankle procedures with history of osteomyelitis who presents to the [facility] ED on 04/20/24 with concerns for 40lb weight loss over the last several months, in addition to anorexia, fatigue, constipation and intermittent abdominal discomfort over the last several weeks. Patient was started on jardiance in march due to increasing blood sugars and after reading up on the side-effects believed maybe some of his complaints were related to the medication. He was asked to come into the ER for further evaluation of his symptoms. Patient underwent a CT a/p that showed a spiculated soft tissue mass, possibly arising from the pancreatic tail, not further characterized without intravenous contrast, concerning for malignancy with dilated fluid and gas-filled loops of large and small bowel which may suggest ileus versus obstruction. Patient denies any nausea/vomiting, CP/SOB, change in color of the stool, jaundice or puritis. He never had abdominal surgery. He has a + history for weight loss of 40lbs over the last several months in addition to more recent/intermittent abdominal discomforts (feels like trapped gas), fatigue and constipation. He normally is regular with his bowel habits but not over the last several weeks. Today patient was started on a stool regimen and had several loose stools. He denies any nausea/vomiting. His labs show WBC 4, Hbg 12.3, Tb 1.5, with other LFTs unremarkable. CEA 4.9. CA19-9 pending. Vitals are stable. On exam patient is in no distress, abdomen soft, non tender, non distended. He feels slightly better than admission. GI has seen the patient and recommending an outpatient EUS with FNA as patient may not be able to tolerate MRI. Agree with this as part of his work up for concern for pancreatic mass. Appears his ileus/sbo picture is resolving. Medicine has already placed him on a diet. If any issues back patient down to NPO or clears until symptoms resolve. There is no acute surgical intervention warranted at this time. EUS/FNA will help guide oncologic recommendations. (2) Pancreatic mass: History of Present Illness Attending Physician: Christiano Ayala MD History of Present Illness This is a 78yM with a PMH of HTN, DM2, multiple foot/toe/ankle procedures with history of osteomyelitis who presents to the [facility] ED on 04/20/24 with concerns for 40lb weight loss over the last several months, in addition to anorexia, fatigue, constipation and intermittent abdominal discomfort over the last several weeks. Patient states he developed osteomyelitis in one of his feet and was on 6 weeks iv abx. After this he was started on 6 months of doxycycline which he states messed up his stomach. He was scheduled for surgery on his foot this March but states his sugars and A1c kept rising in addition to feeling so weak it was cancelled. He has since been started on metformin with increasing and decreasing doses without success and now Jardiance over the last month. With his abdominal complaints he was concerned his Jardiance was causing his side effects. After having a telehealth visit he was referred to come into the ER for further evaluation. Patient underwent a CT a/p that showed a spiculated soft tissue mass, possibly arising from the pancreatic tail, not further characterized without intravenous contrast, concerning for malignancy with dilated fluid and gas-filled loops of large and small bowel which may suggest ileus versus obstruction. Patient denies any nausea/vomiting, CP/SOB, change in color of the stool, jaundice or puritis. He never had abdominal surgery. He has a + history for weight loss of 40lbs over the last several months in addition to more recent/intermittent abdominal discomforts (feels like trapped gas), fatigue and constipation. He normally is regular with his bowel habits. Patient says he has been started on stool softeners and now today had several loose BMs in addition to passing flatus. He denies n/v. Last colonoscopy was in 2023 of last year where polyps were removed without evidence of malignancy. Allergies Allergy/AdvReac Type Severity Reaction Status Date / Time avocado Allergy Mild SWELLING Verified 09/11/22 09:06 lisinopril AdvReac Intermediate cough Verified 09/11/22 09:06 losartan AdvReac Intermediate cough Verified 09/11/22 09:06 Home Medications Medication Instructions Recorded Confirmed Type celecoxib 200 mg capsule 200 mg PO DAILY 04/21/24 04/21/24 History docusate sodium 100 mg capsule 100 mg PO BID 04/21/24 04/21/24 History empagliflozin 25 mg tablet 25 mg PO DAILY 04/21/24 04/21/24 History glipizide 5 mg tablet 5 mg PO BID 04/21/24 04/21/24 History Patient History Medical History Left otitis media with effusion Right otitis media with effusion Multiple lipomas Arthritis Surgical History History of ankle surgery H/O carpal tunnel repair S/P hip replacement History of ankle joint replacement Social History Smoking Status: Never smoker Hx Alcohol Use: Yes Alcohol type: beer Alcohol Intake Frequency: Monthly or Less Alcohol Intake Frequency Comment: Weekly Hx Substance Use: Yes Prescribed Medications: Other Substance Use Type Other:: Marijuana via cream to feet Preferred Language: Indian Communication Ability: Effective Visual Impairment: Limited Hearing Ability: Normal Metal Moulder'S Assistant Required: No Beliefs That Will Affect Care: None marital status: Current Living Situation: Spouse current occupational status: retired 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 Other Information That Helps Us Care for You: No Feels Safe at Home: Yes Safety Concerns: Feels Safe At This Time Diet: diabetic Assistive Devices: Glasses Review of Systems Constitutional: + fatigue, + anorexia and + weight loss (40lbs over the last several months); no fever and no chills Respiratory: no dyspnea Cardiovascular: no chest pain Gastrointestinal: + abdominal pain (abdominal pain that fe els like a gas bubble) and + constipation; no nausea and no vomiting Genitourinary: no problem reported Integumentary: no pruritus and no yellowing of the skin Physical Exam Physical Exam: awake/alert, no distress Constitutional: + thin Respiratory: normal respiratory effort; no respiratory distress Gastrointestinal (Abdomen): Inspection/Auscultation: abdomen not distended Percussion/Palpation: abdomen soft; abdomen nontender Skin: no jaundice Results & Data Vital Signs (Past 12 Hours) Vital Signs Temp Pulse Pulse Resp BP Pulse Ox O2 Del Method 04/21/24 15:50 97.9 F 73 18 103/71 94 Room Air 04/21/24 13:47 98 H 04/21/24 11:19 97.9 F 86 16 118/76 94 Room Air 04/21/24 07:42 97.7 F 86 16 115/70 98 Room Air 04/21/24 07:[address] abdomen without EXAMINATION: Abdomen and pelvis CT without CLINICAL HISTORY: Pain PRIORS: None TECHNIQUE: Contiguous axial images were obtained through the abdomen and pelvis without the use of intravenous contrast. Sagittal and coronal reformations are supplied. FINDINGS: Lung bases unremarkable. Evaluation of solid organs is limited without the use of intravenous contrast. Allowing for this, the liver, spleen, and kidneys are morphologically unremarkable. Allowing for the absence of intravenous contrast a spiculated soft tissue mass is present in the left retroperitoneum or pancreas, image 104, series 3 and image 45, series 300 and image 68, series 301, possibly arising from the pancreatic tail. This measures approximately 5.0 cm in anteroposterior dimension by 6.5 cm in transverse dimension by 4.4 cm in craniocaudal dimension. The pancreas appears atrophic. Adjacent adenopathy present. Multiple prominent lymph nodes present in the mesentery of the right lower quadrant. Moderate to advanced atherosclerotic disease. A moderate amount of formed stool in the sigmoid colon. Moderate osseous demineralization noted with advanced degenerative change of the lumbar spine Moderate ascites is present. Moderate free fluid in the pelvis. Left total hip arthroplasty present. The noncontrast enhanced kidneys are symmetric with nonobstructing calcifications noted. A moderate amount of gas and stool present in the colon. Multiple dilated loops of fluid-filled small bowel are present, measuring up to 2.8 cm Dilated loops of large bowel present, involving the ascending colon measuring up to 7.9 cm. No extraluminal gas is identified. IMPRESSION: 1. Spiculated soft tissue mass, possibly arising from the pancreatic tail, not further characterized without intravenous contrast, concerning for malignancy with dilated fluid and gas-filled loops of large and small bowel which may suggest ileus versus obstruction. Please correlate with clinical history. 2. Moderate ascites and adenopathy present. ACT 112: Positive. There are findings on this examination that require communication between the performing entity and the patient following Patient Test Result Information Act ([place] ACT 112) guidelines. Electronically signed by Nai David 04-20-2024 6:29 PM KUB CLINICAL HISTORY: Evaluate ileus. COMPARISON STUDY: CT of the abdomen and pelvis April 20, 2024. FINDINGS: Left hip arthroplasty is incidentally noted. There is no evidence for free air on supine exam. Moderate distention of small bowel is unchanged. Distention of the large bowel is unchanged or slightly improved since prior exam. IMPRESSION: Small and large bowel dilatation. Large bowel dilatation slightly decreased since prior CT. These findings suggest a colonic obstruction at the level of the splenic flexure due to a neoplastic process within the left upper quadrant, better depicted on CT of April 20, 2024. PG Care Time/CCT Total # of Minutes Spent Total Time Spent with Patient: Total time spent is greater than 50% in coordination of care (as documented) at patient's floor/unit and/or counseling patient: Coding Level of Care Code 50146 INT INP/OBS CARE 2/55MIN Diagnoses Ileus K56.7 Pancreatic mass K86.89
[2024-04-21] MEDS: MELATONIN 3 MG TAB PO PRN (20:14)
[2024-04-21] MEDS: DOCUSATE SODIUM 100 MG CAP PO SCH (20:17)
[2024-04-22 06:24] LABS: Basophils # (auto) 0.02 K/uL (0.00-0.20); Basophils % (auto) 0.6 %; Eosinophils # (auto) 0.05 K/uL (0.00-0.50); Eosinophils % (auto) 1.5 %; Hematocrit (blood only) 33.1 % (42.0-52.0); Hemoglobin 11.1 g/dl (14.0-18.0); Immature Granulocytes # (auto) 0.01 K/uL (0.01-0.20); Immature Granulocytes % (auto) 0.3 %; Lymphocytes # (auto) 0.81 K/uL (1.20-3.40); Mean Corpuscular Hgb Conc 33.5 g/dL (32.0-36.0); Mean Corpuscular Volume 92.5 fL (80.0-100.0); Mean Platelet Volume 10.4 fL (9.4-12.4); Monocytes # (auto) 0.52 K/uL (0.11-0.59); Neutrophils # (auto) 1.83 K/uL (1.40-6.50); Neutrophils % (auto) 56.6 %; Platelet Count 169 K/uL (130-400); RDW Coefficient of Variation 12.5 % (11.5-14.5); RDW Standard Deviation 42.5 fL (36.4-46.3); Red Blood Count 3.58 M/uL (4.70-6.10); White Blood Count 3.24 K/ul (4.8-10.8)
[2024-04-22 06:43] LABS: Albumin Globulin Ratio 1.4 (0.9-2); Albumin Level 3.3 gm/dl (3.4-5.0); BUN Creatinine Ratio 36.1 (10-20); Bilirubin,Total 1.2 mg/dl (0.2-1.0); Calcium 8.5 mg/dl (8.6-10.3); Creatinine Clr Calc Pharmacy 49.7 ml/min; Globulin 2.3 gm/dl (2.5-4.0); Potassium 3.4 mmol/L (3.5-5.1); Total Protein 5.6 gm/dl (6.0-8.3)
--- NOTE | 2024-04-22 07:58 | XRay Report ---
EXAM: XR KUB/Abdomen 1 view CLINICAL HISTORY: Obstruction. TECHNIQUE: X-ray image of the abdomen obtained in 1 frontal view. COMPARISON: Prior CT dated 04/20/2024 for comparison. FINDINGS: Gas Pattern: Prominent caliber with gaseous distension small and large bowel loops, and transverse colon measuring ~6.5 cm. Soft Tissues: Soft tissues of the abdomen appear normal without evidence of masses or calcifications. The liver, spleen, and kidneys are of normal size and position. Moderate spondylotic changes in the thoracolumbar spine with scoliosis to the left. Left total hip replacement prosthesis. Mild degenerative changes in the right hip joint. IMPRESSION: 1. Prominent caliber with gaseous distension small and large bowel loops, transverse colon measuring ~6.5 cm. (stable). 2. Multiple small calculi of 2-3 mm in bilateral kidneys in prior CT are not much appreciated in X-ray. Electronically signed by Marianne Victoria 04-22-2024 07:57 AM
[2024-04-22] MEDS: OPTIRAY 320 100ml IV ONE (08:56)
[2024-04-22] MEDS: POTASSIUM CHLORIDE CRTAB 20 MEQ TABCR PO STA (09:01)
[2024-04-22] MEDS: SODIUM CHLORIDE 0.9% 500 ML IV SCH (09:01)
--- NOTE | 2024-04-22 09:23 | CT Scan Report ---
CT OF THE CHEST WITH IV CONTRAST CLINICAL HISTORY: Staging. COMPARISON STUDY: Chest radiograph June 29, 2022. TECHNIQUE: Following IV administration of 94 mL of Optiray, helical axial images of the chest were o btained. Sagittal and coronal reconstructions were viewed as well as maximal intensity projections o n an independent 3-D workstation. Automated exposure control was utilized for the study. A dose low ering technique was utilized adhering to the principles of ALARA. FINDINGS: No enlarged axillary, mediastinal or hilar lymph nodes are present. Size of the heart is n ormal. There is no pericardial effusion. There is no pneumothorax or pleural effusion. There is an ir regular 1.1 cm right upper lobe nodule on image 107 of 261. Mild adjacent groundglass opacity. There is also a 9 mm ill-defined nodule within the medial aspect of the right upper lobe on image 121. Ther e is no consolidation. There are no suspicious lesions within the bony thorax. The abdomen and pelvis CT will be reported separately. An infiltrative left upper lobe mass is better depicted on that exam ination. There is upper abdominal ascites as well as dilatation of multiple bowel loops. IMPRESSION: 1. No thoracic lymphadenopathy. 2. Two ill-defined right upper lobe nodules, measuring up to 1.1 cm. The larger nodule appears spicul ated with adjacent groundglass opacity. These may be infectious or inflammatory in etiology. However, a neoplastic etiology such as primary lung malignancy or metastatic disease cannot be excluded. A sh ort-term follow-up chest CT in one month is recommended. 3. Infiltrative left upper quadrant mass, upper abdominal ascites and dilated bowel loops. These find ings are better depicted on the abdomen and pelvis CT which will be reported separately. ACT 112: Negative or not required by law. Electronically signed by: Ravin Mclaughlin M.D. 04/22/2024 9:22 AM
--- NOTE | 2024-04-22 09:38 | CT Scan Report ---
CT OF THE ABDOMEN AND PELVIS WITH CONTRAST CLINICAL HISTORY: Staging. COMPARISON STUDY: CT of the abdomen and pelvis April 20, 2024. KUB April 22, 2024. TECHNIQUE: Following IV administration of 94 mL of Optiray, axial images of the abdomen and pelvis we re obtained from the lung bases to the proximal femurs. Images were reviewed in the axial, sagittal, and coronal planes. IV contrast was administered without complication. Automated exposure control wa s utilized for the study. A dose lowering technique was utilized adhering to the principles of ALARA . CT DOSE: 1276.19 mGy.cm FINDINGS: No hepatic lesions are identified. There is no pneumatosis, free air or portal venous gas. Moderate ascites has increased since CT of April 20, 2024. A small hypoenhancing focus within the superior aspect the spleen represents a small splenic infarct. Small left renal calculi are present. There are no ureteral calculi. There is no hydronephrosis. Left-sided parapelvic cysts are present. T here is an infiltrative left upper quadrant mass which measures 5.7 x 5 cm. This is in the expected l ocation of the pancreatic tail. This favors a pancreatic neoplasm. This results in narrowing of the s plenic flexure of the colon shown on image 128 of 397. This is shown on prior CT. Small large bowel d ilatation has improved. There is residual colonic dilatation. Ascending and transverse colon wall thi ckening has increased. There is wall thickening of several distal small bowel loops. The left upper q uadrant mass results in occlusion of the portosplenic confluence with associated collateral formation . The mass also encases portions of the celiac axis. The mass abuts the superior mesenteric artery. T he mass invades the left adrenal gland. No pathologically enlarged abdominal or pelvic lymph nodes ar e present. There are no definite peritoneal implants. No suspicious lesions within the visualized ske letal structures. Colonic diverticulosis. No evidence for acute diverticulitis. IMPRESSION: 1. 5.7 x 5 cm infiltrative left upper quadrant mass, likely arising from the pancreatic tail. This fa vors pancreatic adenocarcinoma. Extensive vascular involvement including occlusion of the portospleni c confluence with collateral formation and encasement of portions of the celiac axis. Mass appears to invade the splenic flexure of the colon and results in a colonic obstruction. Interval decrease in c olonic dilatation since CT of April 20, 2024. Development of right colon and distal small bowel wa ll thickening. 2. No hepatic metastases. No pathologically enlarged lymph nodes. 3. Moderate abdominal and pelvic ascites, increased since prior exam. No pneumoperitoneum. ACT 112: Negative or not required by law. Electronically signed by: Ravin Mclaughlin M.D. 04/22/2024 9:36 AM
--- NOTE | 2024-04-22 10:47 | Hospitalist Progress Note ---
Date of Service April 22, 2024 Assessment & Plan (1) Ileus: Plan This is a 78-year-old male who has a significant past medical history of T2DM, HTN, idiopathic chronic gout, constipation, EDWARD, generalized arthritis, history osteomyelitis who presented to ED 2/2 stomach pain x 3-4 weeks, fatigue and weight loss of 40lbs in 6 months. Admitting CTAP: 1. Spiculated soft tissue mass, possibly arising from the pancreatic tail, not further characterized without intravenous contrast, concerning for malignancy with dilated fluid and gas-filled loops of large and small bowel which may suggest ileus versus obstruction. Please correlate with clinical history. 2. Moderate ascites and adenopathy present. Pancreatic tail mass Elevated bilirubin level Unintentional weight loss: 40 pound weight loss in the last 6 months, associated with occasional nausea and poor appetite. Patient presents with stomach pain, unintentional weight loss, feeling progressively tired and sleeping a lot. Admitting CTAP as above. CEA pending T bili stable at 1.5, no jaundice He was seen and evaluated by GI/Onc/Surgical teams - appreciate their input Staging CT Chest/A/P with contrast ordered ----Chest CT:No thoracic lymphadenopathy.2. Two ill-defined right upper lobe nodules, measuring up to 1.1 cm. The larger nodule appears spiculated with adjacent groundglass opacity. These may be infectious or inflammatory in etiology. However, a neoplastic etiology such as primary lung malignancy or metastatic disease cannot be excluded. A short-term follow-up chest CT in one month is recommended. ----Abd/Pelvis CT:5.7 x 5 cm infiltrative left upper quadrant mass, likely arising from the pancreatic tail. This favors pancreatic adenocarcinoma. Extensive vascular involvement including occlusion of the portosplenic confluence with collateral formation and encasement of portions of the celiac axis. Mass appears to invade the splenic flexure of the colon and results in a colonic obstruction. Interval decrease in colonic dilatation since CT of April 20, 2024. Development of right colon and distal small bowel wall thickening.2. No hepatic metastases. No pathologically enlarged lymph nodes.3. Moderate abdominal and pelvic ascites, increased since prior exam. No pneumoperitoneum. Case discussed with Darrell France of IR - plan to do a diagnostic paracentesis on 04/23 for staging purposes and to assist in diagnosis, order placed Discussed case with Geisinggennaro Acosta PA-C who coordinated with Dr. Alonso - they will plan EUS/FNA as outpt, tentative 04/30 at [facility]; however they are trying to arrange sooner at [facility] Char TAYLOR will call pt or if he doesn't hear by he is to call [phone] Dwight Goncalves is reviewing CT a/p regarding extensive vascular involvement: Per Surgery Mass is invading into other structures. It is recommended he have a soft diet to help prevent further obstruction as its causing narrowing of transverse colon. Recommendation per surgery is to have tissue dx and further consultation with med onc to determine next steps Hypokalemia: replace, 3.4 today, repeat in a.m. Ileus/constipation: pt moving bowels every few days, no belly pain, is moving gas. Was having liquid BM yesterday, tolerating diet, surg feels ok to continue diet, downgrade if sx return, feels obs likely resolving, likely in setting of panc mass, as above Acute kidney injury: Baseline creatinine of 1.0, admitting creatinine of 1.43. resolved, will give gentle fluids after CTA Uncontrolled diabetes: In the setting of pancreatic tail mass. Glycemic pharmacy consult. cosmetology educator consult. 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 DVT ppx: SQ heparin, will hold heparin after tonight dose for tomorrows paracentesis FULL CODE PCP: Amanda Moeller Dispo: admit to med tele, not yet medically ready for discharge Pt was seen and examined in collaboration with Dr. Ayala, please see addendum I spent a total of 55 minutes coordinating, documenting and providing care for this patient excluding time spent in the performance of separately billed services or time spent by another provider/QHP. Admission and Anticipated Discharge Date Admission Date: April 20, 2024 Supervising Physician Co-Signing Physician Notes Pt seen and examined by me, care coordinated w/ B. GRACE Valdes, pls refer to her note above for further detail. Pt is lying in bed in NAD however states having some more abdominal discomfort after eating breakfast. No BM today. Last BM yesterday - several loose stools. Pt's present at the bedside and updated. Pt seen by GI yesterday - plan for outpt GI follow up. EUS and FNA biopsy. Oncology and surgery also consulted. Per oncology - obtained guerrero CT. Discussed w/ surgery CT results. Recommend soft and low fiber diet. Will need further outpt follow up w/ GI as above. Oncology also recommends paracentesis - arranged for tmrw. MD Lucy I spent a total of 15 minutes coordinating, documenting, and providing care for this patient excluding time spend in the performance of separately billed services or time spent by another provider / QHP. Subjective Pt was seen in 285-1 with at bedside. He said he just ate breakfast and has more abd fullness. He has not had a BM since last night. He denies olesya abd pain. He denies f/c/s, chest pain, sob, n/v. He met with GI, Onc and Surgery yesterday. and patient are very worried. The therapy dog visited during out visit. Review of Systems Review of Systems: All systems reviewed & are unremarkable except as noted in HPI & below Physical Exam Physical Exam: Gen: thin, malnourished appearing, temporal wasting, NAD, A&O x3 HEENT: Normocephalic, atraumatic, conjunctivae moist, sclerae anicteric, mucous membranes moist. Lung: Clear to Auscultation bilaterally, no wheezes/rales/rhonchi Heart: Regular rate, regular rhythm, no murmurs, rubs, or gallops Abdomen: Soft, NT, ND +BS x 4 Extremities: No edema Skin: Warm, no rash, negative turgor. Results & Data Results & Data Vital Signs (Past 12 Hours) Vital Signs Temp Pulse Pulse Resp BP Pulse Ox O2 Del Method 04/22/24 07:22 91 H 04/22/24 07:16 36.3 C L 77 18 136/78 95 Room Air 04/22/24 02:56 36.6 C 96 H 18 124/75 92 Room Air Laboratory Results Short CBC 04/22/24 Range/Units 05:32 WBC 3.24 L (4.8-10.8) K/ul Hgb 11.1 L (14.0-18.0) g/dl Hct 33.1 L (42.0-52.0) % Plt Count 169 (130-400) K/uL BMP 04/22/24 05:32 Sodium 136 Potassium 3.4 L D Chloride 108 H Carbon Dioxide 19 L BUN 43 H Creatinine 1.19 Glucose 144 H Calcium 8.5 L Liver Function 04/22/24 Range/Units 05:32 Total Bilirubin 1.2 H (0.2-1.0) mg/dl AST 10 L (13-39) U/L ALT 8 (7-52) U/L Alkaline Phosphatase 58 (34-104) U/L Albumin 3.3 L (3.4-5.0) gm/dl I have independently reviewed and interpreted patient's cbc, bmp, mag Diagnostic Findings Chest CT 04/22/24 07:40 CT OF THE CHEST WITH IV CONTRAST CLINICAL HISTORY: Staging. COMPARISON STUDY: Chest radiograph June 29, 2022. TECHNIQUE: Following IV administration of 94 mL of Optiray, helical axial images of the chest were obtained. Sagittal and coronal reconstructions were viewed as well as maximal intensity projections on an independent 3-D workstation. Automated exposure control was utilized for the study. A dose lowering technique was utilized adhering to the principles of ALARA. FINDINGS: No enlarged axillary, mediastinal or hilar lymph nodes are present. Size of the heart is normal. There is no pericardial effusion. There is no pneumothorax or pleural effusion. There is an irregular 1.1 cm right upper lobe nodule on image 107 of 261. Mild adjacent groundglass opacity. There is also a 9 mm ill-defined nodule within the medial aspect of the right upper lobe on image 121. There is no consolidation. There are no suspicious lesions within the bony thorax. The abdomen and pelvis CT will be reported separately. An infiltrative left upper lobe mass is better depicted on that examination. There is upper abdominal ascites as well as dilatation of multiple bowel loops. IMPRESSION: 1. No thoracic lymphadenopathy. 2. Two ill-defined right upper lobe nodules, measuring up to 1.1 cm. The larger nodule appears spiculated with adjacent groundglass opacity. These may be infectious or inflammatory in etiology. However, a neoplastic etiology such as primary lung malignancy or metastatic disease cannot be excluded. A short-term follow-up chest CT in one month is recommended. 3. Infiltrative left upper quadrant mass, upper abdominal ascites and dilated bowel loops. These findings are better depicted on the abdomen and pelvis CT which will be reported separately. ACT 112: Negative or not required by law. Electronically signed by: Ravin Mclaughlin M.D. 04/22/2024 9:22 AM Abdomen/Pelvis CT 04/22/24 07:42 CT OF THE ABDOMEN AND PELVIS WITH CONTRAST CLINICAL HISTORY: Staging. COMPARISON STUDY: CT of the abdomen and pelvis April 20, 2024. KUB April 22, 2024. TECHNIQUE: Following IV administration of 94 mL of Optiray, axial images of the abdomen and pelvis were obtained from the lung bases to the proximal femurs. Images were reviewed in the axial, sagittal, and coronal planes. IV contrast was administered without complication. Automated exposure control was utilized for the study. A dose lowering technique was utilized adhering to the principles of ALARA. CT DOSE: 1276.19 mGy.cm FINDINGS: No hepatic lesions are identified. There is no pneumatosis, free air or portal venous gas. Moderate ascites has increased since CT of April 20, 2024. A small hypoenhancing focus within the superior aspect the spleen represents a small splenic infarct. Small left renal calculi are present. There are no ureteral calculi. There is no hydronephrosis. Left-sided parapelvic cysts are present. There is an infiltrative left upper quadrant mass which measures 5.7 x 5 cm. This is in the expected location of the pancreatic tail. This favors a pancreatic neoplasm. This results in narrowing of the splenic flexure of the colon shown on image 128 of 397. This is shown on prior CT. Small large bowel dilatation has improved. There is residual colonic dilatation. Ascending and transverse colon wall thickening has increased. There is wall thickening of several distal small bowel loops. The left upper quadrant mass results in occlusion of the portosplenic confluence with associated collateral formation. The mass also encases portions of the celiac axis. The mass abuts the superior mesenteric artery. The mass invades the left adrenal gland. No pathologically enlarged abdominal or pelvic lymph nodes are present. There are no definite peritoneal implants. No suspicious lesions within the visualized skeletal structures. Colonic diverticulosis. No evidence for acute diverticulitis. IMPRESSION: 1. 5.7 x 5 cm infiltrative left upper quadrant mass, likely arising from the pancreatic tail. This favors pancreatic adenocarcinoma. Extensive vascular involvement including occlusion of the portosplenic confluence with collateral formation and encasement of portions of the celiac axis. Mass appears to invade the splenic flexure of the colon and results in a colonic obstruction. Interval decrease in colonic dilatation since CT of April 20, 2024. Development of right colon and distal small bowel wall thickening. 2. No hepatic metastases. No pathologically enlarged lymph nodes. 3. Moderate abdominal and pelvic ascites, increased since prior exam. No pneumoperitoneum. ACT 112: Negative or not required by law. Electronically signed by: Ravin Mclaughlin M.D. 04/22/2024 9:36 AM KUB X-Ray 04/22/24 09:00 EXAM: XR KUB/Abdomen 1 view CLINICAL HISTORY: Obstruction. TECHNIQUE: X-ray image of the abdomen obtained in 1 frontal view. COMPARISON: Prior CT dated 04/20/2024 for comparison. FINDINGS: Gas Pattern: Prominent caliber with gaseous distension small and large bowel loops, and transverse colon measuring ~6.5 cm. Soft Tissues: Soft tissues of the abdomen appear normal without evidence of masses or calcifications. The liver, spleen, and kidneys are of normal size and position. Moderate spondylotic changes in the thoracolumbar spine with scoliosis to the left. Left total hip replacement prosthesis. Mild degenerative changes in the right hip joint. IMPRESSION: 1. Prominent caliber with gaseous distension small and large bowel loops, transverse colon measuring ~6.5 cm. (stable). 2. Multiple small calculi of 2-3 mm in bilateral kidneys in prior CT are not much appreciated in X-ray. Electronically signed by Marianne Victoria 04-22-2024 07:57 AM
[2024-04-22] MEDS: DOCUSATE SODIUM 100 MG CAP PO SCH (18:13)
[2024-04-22] MEDS: DOCUSATE SODIUM 100 MG CAP PO ONE (19:21)
[2024-04-23 08:06] LABS: Calcium 8.8 mg/dl (8.6-10.3); Creatinine Clr Calc Pharmacy 51.4 ml/min; Potassium 4.3 mmol/L (3.5-5.1)
[2024-04-23] MEDS: LANTUS PER UNIT CHARGE SC SCH (08:44)
--- NOTE | 2024-04-23 11:00 | Discharge Summary ---
Date of Service April 23, 2024 Admission HPI Per Admitting Provider 78-year-old male with PMH of subacute thyroiditis, HLD, idiopathic chronic gout of multiple sites without tophus, diabetes mellitus, chronic rhinitis, severe obstructive sleep apnea, hypertension, constipation, osteomyelitis presents to the ED with complaint of stomach pain for 3 to 4 weeks, feeling tired all the time, sleeping a lot. Patient reports he has occasional nausea and poor appetite since last 6 months and has lost 40 pounds weight in the same duration. Patient denies vomiting. Patient reports stomach pain on and off for 3 to 4 weeks, no radiation. Patient denies fever/sore throat/cough/chest pain/pain or burning while passing urine. Patient reports constipation for about 3 to 4 weeks, is moving gas, denies belly pain but now moving bowels every few days instead of his usual habits of daily. Patient denies smoking/alcohol use/recreational drug use. Medications reviewed with the patient and his at bedside. CT scan of the abdomen pelvis discussed with the patient and his at bed side, further plan of care regarding need for further diagnostic workup while in here for pancreatic tail mass has been explained to them. They voiced understanding. Full code Admission Exam Per Admitting Provider GENERAL: Alert and oriented x3. NAD, on RA. Appears frail/weak/lean and thin. HEENT: No pallor, no icterus. Pupils equal, round and reactive to light. Oral mucosa dry. NECK: No JVD, no neck masses. HEART: S1 and S2 heard. Regular rate and rhythm. HR in 101. No murmur, no gallop. RESPIRATORY SYSTEM: Normal AP diameter. No accessory muscle use. No wheezing, no crackles. ABDOMEN: Soft, bowel sounds present, nontender, no distention. CENTRAL NERVOUS SYSTEM: No facial droop. Speech is clear. Obeys simple commands. Moves extremities. EXTREMITIES: No edema, no erythema seen. Ulnar deviation of b/l hand. No calf tenderness. Principal Diagnosis pancreatic mass Discharge Exam Neuro: AAOx4, PERRLA, no aphagia, memory changes, CNII-XII grossly intact HEENT: head normocephalic, moist mucus membranes CV: S1/S2, (-) M/G/R, (-) edema, cap refill < 3 seconds Resp: Lungs CTA in all angel. On RA GI: Abdomen S/NT/ND, Ax4 bowel sounds, (-) CVA tenderness Musculoskeletal: 5/5 B/L UE strength, 5/5 B/L LE strength. No gait disturbance Skin: (-) rashes , (-) erythema. Psych: euthymic mood Discharge Data Allergies Allergy/AdvReac Type Severity Reaction Status Date / Time avocado Allergy Mild SWELLING Verified 09/11/22 09:06 lisinopril AdvReac Intermediate cough Verified 09/11/22 09:06 losartan AdvReac Intermediate cough Verified 09/11/22 09:06 Consultations 04/20/24 19:14 ED Decision to Admit Stat 04/20/24 20:25 Consult Gastroenterology Routine Consult Oncology Routine 04/21/24 15:40 Consult General Surgery Routine Ordered Studies SUMMARY OF TEST RESULTS: 1. 04/20/24: Abdomen and Pelvis CT: Spiculated soft tissue mass, possibly arising from the pancreatic tail, not further characterized without intravenous contrast, concerning for malignancy with dilated fluid and gas-filled loops of large and small bowel which may suggest ileus versus obstruction. Please correlate with clinical history. 2. Moderate ascites and adenopathy present. 2. 04/21/24: KUB: FINDINGS: Left hip arthroplasty is incidentally noted. There is no evidence for free air on supine exam. Moderate distention of small bowel is unchanged. Distention of the large bowel is unchanged or slightly improved since prior exam. IMPRESSION: Small and large bowel dilatation. Large bowel dilatation slightly decreased since prior CT. These findings suggest a colonic obstruction at the level of the splenic flexure due to a neoplastic process within the left upper quadrant, better depicted on CT of April 20, 2024. 3. 04/22/24: Chest CT: IMPRESSION: 1. No thoracic lymphadenopathy. 2. Two ill- defined right upper lobe nodules, measuring up to 1.1 cm. The larger nodule appears spiculated with adjacent groundglass opacity. These may be infectious or inflammatory in etiology. However, a neoplastic etiology such as primary lung malignancy or metastatic disease cannot be excluded. A short-term follow-up chest CT in one month is recommended. 3. Infiltrative left upper quadrant mass, upper abdominal ascites and dilated bowel loops. These findings are better depicted on the abdomen and pelvis CT which will be reported separately. / 04/22/24: Abdomen and Pelvis CT: IMPRESSION: 1. 5.7 x 5 cm infiltrative left upper quadrant mass, likely arising from the pancreatic tail. This favors pancreatic adenocarcinoma. Extensive vascular involvement including occlusion of the portosplenic confluence with collateral formation and encasement of portions of the celiac axis. Mass appears to invade the splenic flexure of the colon and results in a colonic obstruction. Interval decrease in colonic dilatation since CT of April 20, 2024. Development of right colon and distal small bowel wall thickening. 2. No hepatic metastases. No pathologically enlarged lymph nodes. 3. Moderate abdominal and pelvic ascites, increased since prior exam. No pneumoperitoneum. 5. 04/22/24: KUB: IMPRESSION: 1. Prominent caliber with gaseous distension small and large bowel loops, transverse colon measuring ~6.5 cm. (stable). 2. Multiple small calculi of 2-3 mm in bilateral kidneys in prior CT are not much appreciated in X-ray. PENDING TEST RESULTS: 1. Diagnostic Paracentesis fluid results are currently pending from the paracentesis you had performed today (04/23). Once these results are known, they will be shared with your care team including your PCP. 2. CA 19-9 blood work which is a tumor marker that is used to detect cancers. Once these results are known they will be shared with your PCP. Would recommend close monitor of his blood sugars. They range in the 200's and per discussion with the ordnance equipment worker could benefit from starting insulin for better control. He would like to discuss this as an outpatient with his PCP, specifically Amos Gomez. He is at an increased risk of euglycemic DKA. Consider initiating insulin and discontinuing Glipizide and Jardiance. Hospital Course (1) Ileus: Plan This is a 78-year-old male who has a significant past medical history of T2DM, HTN, idiopathic chronic gout, constipation, EDWARD, generalized arthritis, history osteomyelitis who presented to ED 2/2 stomach pain x 3-4 weeks, fatigue and weight loss of 40lbs in 6 months. Admitting CTAP: 1. Spiculated soft tissue mass, possibly arising from the pancreatic tail, not further characterized without intravenous contrast, concerning for malignancy with dilated fluid and gas-filled loops of large and small bowel which may suggest ileus versus obstruction. Please correlate with clinical history. 2. Moderate ascites and adenopathy present. Staging CT Chest/A/P with contrast ordered ----Chest CT:No thoracic lymphadenopathy.2. Two ill-defined right upper lobe nodules, measuring up to 1.1 cm. The larger nodule appears spiculated with adjacent groundglass opacity. These may be infectious or inflammatory in etiology. However, a neoplastic etiology such as primary lung malignancy or metastatic disease cannot be excluded. A short-term follow-up chest CT in one month is recommended. ----Abd/Pelvis CT:5.7 x 5 cm infiltrative left upper quadrant mass, likely arising from the pancreatic tail. This favors pancreatic adenocarcinoma. Extensive vascular involvement including occlusion of the portosplenic confluence with collateral formation and encasement of portions of the celiac axis. Mass appears to invade the splenic flexure of the colon and results in a colonic obstruction. Interval decrease in colonic dilatation since CT of April 20, 2024. Development of right colon and distal small bowel wall thickening.2. No hepatic metastases. No pathologically enlarged lymph nodes.3. Moderate abdominal and pelvic ascites, increased since prior exam. No pneumoperitoneum. Case discussed with Darrell France of IR - plan to do a diagnostic paracentesis on 04/23 for staging purposes and to assist in diagnosis which was performed with 1L of diagnostic fluid removed. Gi plans to do an EUS/FNA as outpt, tentative 04/30 at [facility]. General Surgery Dr. Dwight Goncalves is reviewing CT a/p regarding extensive vascular involvement: Per Surgery Mass is invading into other structures. It is recommended he have a soft diet to help prevent further obstruction as its causing narrowing of transverse colon. Recommendation per surgery is to have tissue dx and further consultation with med onc to determine next steps He was also seen by the telephoner with regards to your weight loss who provided you with some reading information for specific foods that may be helpful for you to eat and it is recommended that you follow up with your PCP to discuss your diabetes as well and further maintenance. SUMMARY OF TEST RESULTS: 1. 04/20/24: Abdomen and Pelvis CT: Spiculated soft tissue mass, possibly arising from the pancreatic tail, not further characterized without intravenous contrast, concerning for malignancy with dilated fluid and gas-filled loops of large and small bowel which may suggest ileus versus obstruction. Please correlate with clinical history. 2. Moderate ascites and adenopathy present. 2. 04/21/24: KUB: FINDINGS: Left hip arthroplasty is incidentally noted. There is no evidence for free air on supine exam. Moderate distention of small bowel is unchanged. Distention of the large bowel is unchanged or slightly improved since prior exam. IMPRESSION: Small and large bowel dilatation. Large bowel dilatation slightly decreased since prior CT. These findings suggest a colonic obstruction at the level of the splenic flexure due to a neoplastic process within the left upper quadrant, better depicted on CT of April 20, 2024. 3. 04/22/24: Chest CT: IMPRESSION: 1. No thoracic lymphadenopathy. 2. Two ill- defined right upper lobe nodules, measuring up to 1.1 cm. The larger nodule appears spiculated with adjacent groundglass opacity. These may be infectious or inflammatory in etiology. However, a neoplastic etiology such as primary lung malignancy or metastatic disease cannot be excluded. A short-term follow-up chest CT in one month is recommended. 3. Infiltrative left upper quadrant mass, upper abdominal ascites and dilated bowel loops. These findings are better depicted on the abdomen and pelvis CT which will be reported separately. 4/ 04/22/24: Abdomen and Pelvis CT: IMPRESSION: 1. 5.7 x 5 cm infiltrative left upper quadrant mass, likely arising from the pancreatic tail. This favors pancreatic adenocarcinoma. Extensive vascular involvement including occlusion of the portosplenic confluence with collateral formation and encasement of portions of the celiac axis. Mass appears to invade the splenic flexure of the colon and results in a colonic obstruction. Interval decrease in colonic dilatation since CT of April 20, 2024. Development of right colon and distal small bowel wall thickening. 2. No hepatic metastases. No pathologically enlarged lymph nodes. 3. Moderate abdominal and pelvic ascites, increased since prior exam. No pneumoperitoneum. 5. 04/22/24: KUB: IMPRESSION: 1. Prominent caliber with gaseous distension small and large bowel loops, transverse colon measuring ~6.5 cm. (stable). 2. Multiple small calculi of 2-3 mm in bilateral kidneys in prior CT are not much appreciated in X-ray. Would discontinue the Glipizide. Continue Jardiance ??. With fair appetite/intake, can present increased risk of euglycemia DKA. We talked about possibly starting a once daily insulin to help improve BG values to a more reasonably safe range. PENDING TEST RESULTS: 1. Diagnostic Paracentesis fluid results are currently pending from the paracentesis you had performed today (04/23). Once these results are known, they will be shared with your care team including your PCP. 2. CA 19-9 blood work which is a tumor marker that is used to detect cancers. Once these results are known they will be shared with your PCP. Total Time Total Time Spent Total Time Spent (In Minutes): I spent a total of 58 minutes coordinating, documenting, and providing care for this patient excluding time spent inthe performance of separately billed services or time spent by another provider/QHP. Discharge Plan Discharge Items Patient Disposition: Home - Self-Care Reason For Visit: STOMACH PAIN Discharge Diagnosis: pancreatic mass Condition on Discharge: Good Activity: Resume your previous activity Non-emergency contact: Primary Care Provider, Tig Welder and Oncologist Call non-emergency contact if: you have any medication questions, your pain is concerning for you and your temperature is above 101.5 Follow-up/Referrals: Michi Quiroga MD [Surgeon] - 05/06/24 12:30 pm () Caro Alan MD [Outside Practitioners] - (Date & Time 05/28/2024 10:00 AM Provider: Caro Alan MD Department: Palliative Medicine [facility] ) Amos Gomez DO [Primary Care Provider] - (Date & Time 04/29/2024 11:00 AM Provider: Amos Gomez DO Family Practice [facility] ) Diet: Heart Healthy Addtl Attending Provider Instructions: parish Edmonds are a 78-year-old gentleman who presented to the [facility] with abdominal pain and constipation with a reported near forty pound unintentional weight loss over the past several months. You also had concerns for constipation. You under went numerous diagnostic imaging studies including a CT scan of your abdomen and pelvis which revealed a 5.7 x 5 cm infiltrative left upper quadrant mass, likely arising from the pancreatic tail. This is suggestive of pancreatic adenocarcinoma. Labs obtained on admission was significant for KATY (acute kidney injury) with creatinine of 1.4 and BUN of 49 which has resolved to baseline after fluid resuscitation. CA 19-9 (a specific tumor marker to help with diagnosis) was obtained and is pending. You were seen by Dr. Zaragoza from Oncology who recommended to undergo an endoscopic ultrasound with fine needle aspiration to determine and confirm a diagnosis for you which will be planned as an outpatient as outlined below. On 04/23 you underwent a diagnostic interventional radiology guided paracentesis since you were experiencing ascites (excess abdominal fluid). The results from the procedure will assist with diagnosis and staging, if the results indicate cancer. These results are pending upon your discharge and will be sent to your PCP. You were seen by the telephoner with regards to your weight loss who provided you with some reading information for specific foods that may be helpful for you to eat and it is recommended that you follow up with your PCP to discuss your diabetes as well and further maintenance. SUMMARY OF TEST RESULTS: 1. 04/20/24: Abdomen and Pelvis CT: Spiculated soft tissue mass, possibly arising from the pancreatic tail, not further characterized without intravenous contrast, concerning for malignancy with dilated fluid and gas-filled loops of large and small bowel which may suggest ileus versus obstruction. Please correlate with clinical history. 2. Moderate ascites and adenopathy present. 2. 04/21/24: KUB: FINDINGS: Left hip arthroplasty is incidentally noted. There is no evidence for free air on supine exam. Moderate distention of small bowel is unchanged. Distention of the large bowel is unchanged or slightly improved since prior exam. IMPRESSION: Small and large bowel dilatation. Large bowel dilatation slightly decreased since prior CT. These findings suggest a colonic obstruction at the level of the splenic flexure due to a neoplastic process within the left upper quadrant, better depicted on CT of April 20, 2024. 3. 04/22/24: Chest CT: IMPRESSION: 1. No thoracic lymphadenopathy. 2. Two ill- defined right upper lobe nodules, measuring up to 1.1 cm. The larger nodule appears spiculated with adjacent groundglass opacity. These may be infectious or inflammatory in etiology. However, a neoplastic etiology such as primary lung malignancy or metastatic disease cannot be excluded. A short-term follow-up chest CT in one month is recommended. 3. Infiltrative left upper quadrant mass, upper abdominal ascites and dilated bowel loops. These findings are better depicted on the abdomen and pelvis CT which will be reported separately. / 04/22/24: Abdomen and Pelvis CT: IMPRESSION: 1. 5.7 x 5 cm infiltrative left upper quadrant mass, likely arising from the pancreatic tail. This favors pancreatic adenocarcinoma. Extensive vascular inv olvement including occlusion of the portosplenic confluence with collateral formation and encasement of portions of the celiac axis. Mass appears to invade the splenic flexure of the colon and results in a colonic obstruction. Interval decrease in colonic dilatation since CT of April 20, 2024. Development of right colon and distal small bowel wall thickening. 2. No hepatic metastases. No pathologically enlarged lymph nodes. 3. Moderate abdominal and pelvic ascites, increased since prior exam. No pneumoperitoneum. 5. 04/22/24: KUB: IMPRESSION: 1. Prominent caliber with gaseous distension small and large bowel loops, transverse colon measuring ~6.5 cm. (stable). 2. Multiple small calculi of 2-3 mm in bilateral kidneys in prior CT are not much appreciated in X-ray. Would discontinue the Glipizide. Continue Jardiance ??. With fair appetite/intake, can present increased risk of euglycemia DKA. We talked about possibly starting a once daily insulin to help improve BG values to a more reasonably safe range. PENDING TEST RESULTS: 1. Diagnostic Paracentesis fluid results are currently pending from the para centesis you had performed today (04/23). Once these results are known, they will be shared with your care team including your PCP. 2. CA 19-9 blood work which is a tumor marker that is used to detect cancers. Once these results are known they will be shared with your PCP. RECOMMENDATIONS FOR FOLLOW-UP: 1. PCP: Dr. Amos Gomez: Saturday 04/29 @ 11:00 AM at [facility] 2. EUS/FNA (Endoscopy Ultrasound and fine needle aspiration of the pancreas) under GI services with Dr. Alonso on Sunday 04/30 at [facility] ; Arrival time 10:15 for procedure at 11:00 2. Hematology/Oncology: Dr. Michi Quiroga: SundayMay 06 @ 1230 PM at [address] 3. Palliative Medicine: Dr. Caro Vizcarra: SundayMay 28 at [facility] OTHER INSTRUCTIONS: Seek medical attention if you have: * temperature above 101 * chest pain or trouble breathing * abdominal pain, nausea, vomiting * diarrhea, dark stools or bloody stools * any unanswered questions or concerns Call 911 if symptoms are severe. Please take good care of yourself. It has been a pleasure taking care of you and getting to know your during this hospital stay. Please take care of yourself and we wish you well. If you have any questions regarding your recent hospitalization please contact [facility] and request [facility] @ [phone]. Pending Studies at Discharge: Yes Studies:: diagnostic paracentesis Stand-Alone Forms: My [facility], Smoking Cessation Medications and DC Order Prescriptions: New docusate sodium 100 mg Capsule 200 mg PO BID Qty: 20 0RF Continued celecoxib 200 mg capsule 200 mg PO DAILY glipizide 5 mg Tablet 5 mg PO BID empagliflozin 25 mg Tablet 25 mg PO DAILY irbesartan 150 mg tablet 75 mg PO DAILY Discontinued docusate sodium 100 mg Capsule 100 mg PO BID Discharge Orders: Discharge Order (Routine); Ordered 04/23/24 Ordered By: Zoe Nielsen Admission Data Admit Date/Time: 04/20/24 20:29 Attending Provider: Isadora Shay Admit Provider: Gonzalez Moreno Primary Care Provider: Amos Gomez Other Providers: Nader Jaffe; Shamika Zaragoza; Magalys Polanco; Miguel Moreira Other Interventions: Discharge Summary Assessment (RN) Last Done: 04/23/24 14:54 Supervising Physician Co-Signing Physician Notes Pt was seen and examined by myself, Isadora Shay MD on the day of service. Care was coordinated with SABRINA Holley. 78-year-old male with newly diagnosed pancreatic mass and pelvic and abdominal ascites. On the day of discharge, patient anxious for discharge. Had IR paracentesis with results pending on discharge...PCP to follow-up Will need follow-up with [facility] gastroenterology and oncology. Appointments have been scheduled. PCP follow-up for diabetes. Otherwise as above. I spent a total [id number] coordinating, documenting, and providing care for this patient excluding time spent in the performance of separately billed services
[2024-04-23 11:06] LABS: Albumin Peritoneal Fluid 1.6 gm/dl; Amylase Peritoneal Fluid < 10 U/L
[2024-04-23 11:10] LABS: Glucose Peritoneal Fluid 199 mg/dl; LDH Peritoneal Fluid 74 U/L
[2024-04-23 11:31] LABS: Appearance Peritoneal Fluid Cloudy; Color Peritoneal Fluid Yellow; RBC Peritoneal Fluid Auto 7000 /uL; WBC Peritoneal Fluid Auto 537 /ul (0-300)
[2024-04-23 12:07] LABS: Basophils, Fluid 1 %; Lymphocytes, Fluid 51 %; Mono,Macrophage,Mesothelial 25 %; Neutrophils, Fluid 23 %
--- NOTE | 2024-04-23 14:06 | Ultrasound Report ---
ULTRASOUND-GUIDED PARACENTESIS CLINICAL HISTORY: Ascites PROCEDURE: Procedure and risks were explained. Informed consent was obtained. A final timeout was com pleted. A pocket of ascites was identified in the right upper quadrant. The right upper quadrant was prepped and draped in sterile fashion. 1% lidocaine was utilized for skin anesthesia. Utilizing ultrasound guidance, a 5 Qatari safety centesis catheter was advanced into the pocket of as cites. Ultrasound image was obtained. A total of 1 L of yellow ascites fluid was removed and sent to the lab for analysis. The catheter was removed and Band-Aid applied. The patient tolerated the proced ure well. Vital signs will be monitored postprocedure. IMPRESSION: Ultrasound-guided paracentesis as above. Performed, dictated, and signed by Real France PA-C; to be co-signed by Dr. Ravin Mclaughlin. Electronically signed by: Ravin Mclaughlin M.D. 04/23/2024 2:24 PM
[2024-04-23 14:42] VITALS: O2SAT 94
[2024-04-23 14:45] VITALS: BP 121/86; RESP 22; TEMP 98.2
[2024-04-23 14:56] VITALS: PULSE 97
--- NOTE | 2024-04-24 08:37 | Coding Query ---
CODING QUERY FOR UNCONTROLLED DIABETES To promote full compliance with coding requirements relating to patient care, provider participation is requested in all cases of diploma dental assistant uncertainty. Please assist us with the question(s) below: Coding Question: The term uncontrolled Diabetes was used throughout the record. To be able to code this diagnosis properly, could you please clarify the diagnosis below: ( ) Uncontrolled Diabetes meaning hypoglycemia ( x ) Uncontrolled Diabetes meaning hyperglycemia ( ) Other (please specify) Principal Diagnosis: "that condition established after study, to be chiefly responsible for occasioning the admission of the patient to the hospital for care." Co-Existing Principal Diagnosis: "when two or more diagnoses equally meet the criteria for principal diagnosis as determined by the circumstances of admission, diagnostic work up, and/or therapy provided, and the Alphabetic Index, Tabular List, or another coding guideline does not provide sequencing direction, any one of the diagnoses may be sequenced first." "When the physician has documented what appears to be a current diagnosis in the body of the record, but has not included the diagnosis in the final diagnostic statement, the physician should be asked whether the diagnosis should be added." (Source Coding Clinic 2 QTR90. p3-4) FISH
== END 2024-04-23 16:00 | disposition home or self-care (01) | DRG 388 ==
LOC: ED 15:25 → 2N 20:29 → SUATTDRO 20:29 → 2N 22:43

== ENCOUNTER 2024-05-07 14:53 | Inpatient (IN) ==
[2024-05-07 16:21] LABS: Hematocrit (blood only) 35.7 % (42.0-52.0); Hemoglobin 12.2 g/dl (14.0-18.0); Mean Corpuscular Hemoglobin 31.4 pg (25.0-34.0); Mean Corpuscular Hgb Conc 34.2 g/dL (32.0-36.0); Mean Platelet Volume 10.1 fL (9.4-12.4); Platelet Count 236 K/uL (130-400); RDW Coefficient of Variation 13.4 % (11.5-14.5); RDW Standard Deviation 45.4 fL (36.4-46.3); Red Blood Count 3.88 M/uL (4.70-6.10); White Blood Count 5.78 K/ul (4.8-10.8)
--- NOTE | 2024-05-07 16:22 | Emergency Department Note ---
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 Patient's provides additional history and notes that they had an abdominal x-ray today showing a bowel obstruction. Patient has not had any nausea or vomiting. He admits to some abdominal distention and bloating and had pain which is now abated after having a bowel movement and passing a large amount of gas. Denies any dysuria urgency or frequency. No other exacerbating or remitting factors. ADDITIONAL HISTORY OBTAINED: Per HPI Chronic Medical/Social Conditions Affecting Care: Per HPI PAST MEDICAL HISTORY:See Below PAST SURGICAL HISTORY:See Below FAMILY HISTORY:See Below SOCIAL HISTORY:See Below HOME MEDICATIONS:See Below ALLERGIES:See Below VITALS:See Below PHYSICAL EXAMINATION: GENERAL: Sitting up in bed, alert, well appearing, well nourished, no distress, non-toxic EYE EXAM: normal conjunctiva. OROPHARYNX: no exudate, no erythema, lips, buccal mucosa, and tongue normal and mucous membranes are moist NECK: supple, no nuchal rigidity, no adenopathy, non-tender LUNGS: Clear to auscultation. Normal chest wall mechanics HEART: no murmurs, S1 normal and S2 normal ABDOMEN: abdomen soft, non-tender, normo-active bowel sounds, no masses, no rebound or guarding. UPPER EXTREMITIES: upper extremities are grossly normal. LOWER EXTREMITIES: No pitting edema. NEURO EXAM: Normal sensorium, cranial nerves II-XII grossly intact, normal speech, no gross weakness of arms, no gross weakness of legs. MEDICAL DECISION MAKING: Patient is a 78-year-old male who presents ER for the above-stated complaint. IV was established and blood work was obtained. Dr. Quiroga from [facility] called and noted the patient had an x-ray today of the abdomen showing small bowel obstruction in the distal aspect. Labs show no significant leukocytosis. Mild anemia at 12.2. BMP with a creatinine 1.4. LFTs and bilirubin were unremarkable. Lipase was normal. UA was clean. CT abdomen pelvis confirmed a bowel obstruction secondary to pancreatic mass. I discussed with our finisher screwdown who recommended general surgery. I did discuss with general surgery Dr. Sheridan notes that this is too complicated to perform here. Discussed with the patient and patient would prefer to go to [facility]. Contacted [facility] patient was accepted by Dr. Padilla and Dr. Cruz. Patient will not have a bed until tomorrow and consequently patient was discussed with Dr. Arreaga for observation overnight. Patient will remain n.p.o. after midnight. NG tube was ordered. Consults/Care Managements Discussions: Per MDM Triage Nursing notes reviewed. Limited review of prior medical records performed Vital Signs: reviewed and remarkable for no significant abnormalities Differential diagnosis: Differential diagnoses includes but is not limited to gastritis, peptic ulcer disease, GERD, gallbladder disease, pancreatitis, small bowel obstruction, appendicitis, diverticulitis, hernia, urinary tract infection, torsion, perforation, trauma, infectious. ER treatment provided: See below Diagnostics interpreted by me include EKG and cardiac monitoring as listed below: -Cardiac Monitoring: An order was placed for continuous cardiac monitoring. The monitor shows a rate of 95 with sinus rhythm. -ECG: none -Laboratory studies:Interpreted by me as stated above in MDM and shown below. 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 (Acute) Colonic obstruction Pancreatic mass (Acute) Mixed conductive and sensorineural hearing loss of left ear with restricted hearing of right ear HTN (hypertension) Diabetic peripheral neuropathy associated with type 2 diabetes mellitus Barotrauma, otic (Acute) 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, with necrosis of bone (Acute) Acquired foot deformity (Chronic) Medical History (Updated 05/07/24 @ 21:59 by Tariq James DO) Multiple lipomas Arthritis Surgical History History of ankle surgery H/O carpal tunnel repair S/P hip replacement History of ankle joint replacement Social History Smoking Status: Never smoker Hx Alcohol Use: Yes Alcohol type: beer Alcohol Intake Frequency: Monthly or Less Alcohol Intake Frequency Comment: Weekly Hx Substance Use: Yes Prescribed Medications: Other Substance Use Type Other:: Marijuana via cream to feet Preferred Language: German Communication Ability: Effective Visual Impairment: Limited Hearing Ability: Normal Anthropologist Required: No Beliefs That Will Affect Care: None marital status: Current Living Situation: Spouse current occupational status: retired 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 Feels Safe at Home: Yes Diet: diabetic Assistive Devices: Cane and Other Allergies Allergies Allergy/AdvReac Type Severity Reaction Status Date / Time avocado Allergy Mild SWELLING Verified 05/07/24 20:53 lisinopril AdvReac Intermediate cough Verified 05/07/24 20:53 losartan AdvReac Intermediate cough Verified 05/07/24 20:53 Home Meds Home Medications Medication Instructions Recorded Confirmed celecoxib 200 mg capsule 200 mg PO DAILY 04/21/24 05/07/24 empagliflozin 25 mg tablet 25 mg PO DAILY 04/21/24 05/07/24 cholecalciferol (vitamin D3) 25 25 mcg PO DAILY 05/07/24 05/07/24 mcg (1,000 unit) capsule (Vitamin D3) lactulose 10 gram/15 mL oral 30 ml PO QID 05/07/24 05/07/24 solution Results & Data (ED) Vital Signs Vital Signs - 24 hr 05/07/24 15:11 05/07/24 16:16 05/07/24 18:00 Temperature 36.7 C 36.9 C 36.9 C Temperature Source Temporal Artery Scan Oral Oral Pulse Rate 96 H Pulse Rate [Apical] 99 H 99 H Pulse Rhythm [Apical] Regular Regular Pulse Strength [Apical] Normal Normal Respiratory Rate 18 20 20 Respiratory Effort / Characteristics Non-Labored Spontaneous Non-Labored Spontaneous Non-Labored Spontaneous Respiratory Depth Normal Normal Normal Respiratory Pattern Regular Regular Regular Blood Pressure 112/71 Blood Pressure [Left Arm] 137/89 128/84 Blood Pressure Mean 84 Blood Pressure Mean [Left Arm] 105 98 Blood Pressure Position [Left Arm] Semi-fowlers Semi-fowlers Pulse Oximetry 97 98 98 Oxygen Delivery Method Room Air Room Air Room Air Sepsis Recent Fever Within 48 Hours No Sepsis New/Unexplained Change in Mental Status N/A Sepsis Action Taken by Nursing No Action Required 05/07/24 19:00 05/07/24 21:00 Temperature Temperature Source Pulse Rate Pulse Rate [Apical] 98 H 92 H Pulse Rhythm [Apical] Pulse Strength [Apical] Respiratory Rate 18 18 Respiratory Effort / Characteristics Respiratory Depth Respiratory Pattern Blood Pressure Blood Pressure [Left Arm] 136/81 152/84 H Blood Pressure Mean Blood Pressure Mean [Left Arm] 99 106 Blood Pressure Position [Left Arm] Pulse Oximetry 95 96 Oxygen Delivery Method Room Air Room Air Sepsis Recent Fever Within 48 Hours Sepsis New/Unexplained Change in Mental Status Sepsis Action Taken by Nursing Laboratory Data 05/07/24 15:57 05/07/24 15:57 Lab Results 05/07/24 05/07/24 Range/Units 15:57 18:14 WBC 5.78 (4.8-10.8) K/ul RBC 3.88 L (4.70-6.10) M/uL Hgb 12.2 L (14.0-18.0) g/dl Hct 35.7 L (42.0-52.0) % MCV 92.0 (80.0-100.0) fL MCH 31.4 (25.0-34.0) pg MCHC 34.2 (32.0-36.0) g/dL RDW Std Deviation 45.4 (36.4-46.3) fL RDW Coeff of Олег 13.4 (11.5-14.5) % Plt Count 236 (130-400) K/uL MPV 10.1 (9.4-12.4) fL Immature Gran % (Auto) 0.2 % Neut % (Auto) 75.3 % Lymph % (Auto) 11.4 % [place] % (Auto) 13.1 % Eos % (Auto) 0.0 % Baso % (Auto) 0.0 % Neut # (Auto) 4.35 (1.40-6.50) K/uL Lymph # (Auto) 0.66 L (1.20-3.40) K/uL [place] # (Auto) 0.76 H (0.11-0.59) K/uL Eos # (Auto) 0.00 (0.00-0.50) K/uL Baso # (Auto) 0.00 (0.00-0.20) K/uL Immature Gran # (Auto) 0.01 (0.01-0.20) K/uL Sodium 136 (136-145) mmol/L Potassium 3.9 (3.5-5.1) mmol/L Chloride 103 (98-107) mmol/L Carbon Dioxide 21 (21-32) mmol/L Anion Gap 12 H (3-11) BUN 55 H (6-23) mg/dl Creatinine 1.47 H (0.6-1.4) mg/dl Est Cr Clr Drug Dosing 38.8 ml/min eGFR 48.52 BUN/Creatinine Ratio 37.4 H (10-20) Glucose 276 H (70-99(Fasting)) mg/dl Calcium 9.7 (8.6-10.3) mg/dl Total Bilirubin 1.4 H (0.2-1.0) mg/dl AST 15 (13-39) U/L ALT 15 (7-52) U/L Alkaline Phosphatase 75 (34-104) U/L Total Protein 6.9 (6.0-8.3) gm/dl Albumin 4.1 (3.4-5.0) gm/dl Globulin 2.8 (2.5-4.0) gm/dl Albumin/Globulin Ratio 1.5 (0.9-2) Lipase 9 L (11-82) U/L Urine Color Yellow Urine Appearance Clear (Clear) Urine pH 5.0 (4.5-7.5) Ur Specific [place] 1.015 (1.000-1.030) Urine Protein 1+ H (Negative) Urine Glucose (UA) 3+ H (Negative) Urine Ketones 1+ H (Negative) Urine Blood Negative (Negative) Urine Nitrite Negative (Negative) Urine Bilirubin Negative (Negative) Urine Urobilinogen Negative (Negative) Ur Leukocyte Esterase Negative (Negative) Urine RBC 0-2 (0-2) /hpf Urine WBC 0-5 (0-5) /hpf Ur Epithelial Cells 0-2 (0-2) /hpf Urine Bacteria None Seen (None Seen) Hyaline Casts Present A (None Presnt) /lpf Administered Medications Discontinued Medications Sodium Chloride (Nss) 1,000 mls @ 999 mls/hr IV .Q1H1M ONE Stop: 05/07/24 17:20 Last Infusion: 05/07/24 18:30 Dose: Infused Documented By: Admin: 05/07/24 16:39 Dose: 999 mls/hr Documented By: SOURAV Ioversol (Optiray 320 100ml) 94 ml IV ONCE ONE Stop: 05/07/24 17:11 Last Admin: 05/07/24 17:10 Dose: 94 ml Documented By: BREONNA Imaging Data Radiologist's Impression: Abdomen/Pelvis CT 05/07/24 15:39 EXAM: CT Abdomen and Pelvis With Intravenous Contrast INDICATION: Evaluate for small bowel obstruction. TECHNIQUE: Axial computed tomography images of the abdomen and pelvis with intravenous contrast. Sagittal and coronal reformatted images were created and reviewed. This CT exam was performed using one or more of the following dose reduction techniques: automated exposure control, adjustment of the mA and/or kV according to patient size, and/or use of iterative reconstruction technique. CONTRAST: 94ml of Optiray 320 was administered intravenously. COMPARISON: 04/20/2024 FINDINGS: Limitations: None. Lung bases: No abnormality noted. Pleural space: No visualized pleural effusion or pneumothorax. Heart: No abnormality noted. Mediastinum: No abnormality noted. ABDOMEN: Liver: No abnormality noted. Gallbladder and bile ducts: No calcified stones or surrounding fluid. Pancreas: Distal pancreatic irregular mass has probably increased in size measuring approximately 6.5 cm transverse by 4.5 cm AP by 3.8 cm long. There is spiculation of the surrounding tissues likely causing colonic obstruction. Or fluid collection in the pancreatic bed. Spleen: No significant abnormality noted. Adrenals: No significant abnormality noted. Kidneys and ureters: There are punctate nonobstructing stones in each kidney. No hydronephrosis. No urinary gas. Stomach and bowel: There is significant interval change with increased distention of the redundant colon to the level of the splenic flexure with moderate to severe enterocolitis. No pneumatosis identified. PELVIS: Appendix: No findings to suggest acute appendicitis. Bladder: No filling defects to suggest mass or large stone. No inflammation. Reproductive: No abnormalities noted. ABDOMEN and PELVIS: Intraperitoneal space: Worsening abdominal and pelvic ascites. No free air. No abscess. Bones/joints: Degenerative changes noted in the scoliotic spine. No acute osseous abnormality noted. Soft tissues: No soft tissue gas or radiopaque foreign body noted. Diffuse body wall edema noted. Vasculature: No abdominal aortic aneurysm. Lymph nodes: No pathologically enlarged lymph nodes. IMPRESSION: 1. 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 2. Irregular distal pancreatic mass appears slightly enlarged. 3. Increased ascites. ACT 112: N/A Electronically signed by Kylah Tatum 05-07-2024 5:36 PM Chest X-Ray 05/07/24 20:14 Exam(s): XR CXR 1 VIEW EXAM: XR Chest, 1 View CLINICAL HISTORY: Reason for exam: renal failure, ankle swellling. TECHNIQUE: Frontal view of the chest. COMPARISON: No relevant prior studies available. FINDINGS: Lungs: Unremarkable. No consolidation. Pleural space: Unremarkable. No pneumothorax. Heart: Unremarkable. No cardiomegaly. Mediastinum: Unremarkable. Normal mediastinal contour. Bones/joints: Unremarkable. No acute fracture. 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
[2024-05-07 16:36] LABS: Immature Granulocytes # (auto) 0.01 K/uL (0.01-0.20); Immature Granulocytes % (auto) 0.2 %; Lymphocytes # (auto) 0.66 K/uL (1.20-3.40); Lymphocytes % (auto) 11.4 %; Monocytes # (auto) 0.76 K/uL (0.11-0.59); Monocytes % (auto) 13.1 %; Neutrophils # (auto) 4.35 K/uL (1.40-6.50); Neutrophils % (auto) 75.3 %
[2024-05-07] MEDS: SODIUM CHLORIDE 0.9% 1,000 ML IV ONE ×2 (16:39→22:06)
[2024-05-07 16:48] LABS: Albumin Globulin Ratio 1.5 (0.9-2); Albumin Level 4.1 gm/dl (3.4-5.0); BUN Creatinine Ratio 37.4 (10-20); Bilirubin,Total 1.4 mg/dl (0.2-1.0); Calcium 9.7 mg/dl (8.6-10.3); Creatinine Clr Calc Pharmacy 38.8 ml/min; Globulin 2.8 gm/dl (2.5-4.0); Potassium 3.9 mmol/L (3.5-5.1); Total Protein 6.9 gm/dl (6.0-8.3)
[2024-05-07] MEDS: OPTIRAY 320 100ml IV ONE (17:10)
--- NOTE | 2024-05-07 17:36 | CT Scan Report ---
EXAM: CT Abdomen and Pelvis With Intravenous Contrast INDICATION: Evaluate for small bowel obstruction. TECHNIQUE: Axial computed tomography images of the abdomen and pelvis with intravenous contrast. Sagittal and coronal reformatted images were created and reviewed. This CT exam was performed using one or more of the following dose reduction techniques: automated exposure control, adjustment of the mA and/or kV according to patient size, and/or use of iterative reconstruction technique. CONTRAST: 94ml of Optiray 320 was administered intravenously. COMPARISON: 04/20/2024 FINDINGS: Limitations: None. Lung bases: No abnormality noted. Pleural space: No visualized pleural effusion or pneumothorax. Heart: No abnormality noted. Mediastinum: No abnormality noted. ABDOMEN: Liver: No abnormality noted. Gallbladder and bile ducts: No calcified stones or surrounding fluid. Pancreas: Distal pancreatic irregular mass has probably increased in size measuring approximately 6.5 cm transverse by 4.5 cm AP by 3.8 cm long. There is spiculation of the surrounding tissues likely causing colonic obstruction. Or fluid collection in the pancreatic bed. Spleen: No significant abnormality noted. Adrenals: No significant abnormality noted. Kidneys and ureters: There are punctate nonobstructing stones in each kidney. No hydronephrosis. No urinary gas. Stomach and bowel: There is significant interval change with increased distention of the redundant colon to the level of the splenic flexure with moderate to severe enterocolitis. No pneumatosis identified. PELVIS: Appendix: No findings to suggest acute appendicitis. Bladder: No filling defects to suggest mass or large stone. No inflammation. Reproductive: No abnormalities noted. ABDOMEN and PELVIS: Intraperitoneal space: Worsening abdominal and pelvic ascites. No free air. No abscess. Bones/joints: Degenerative changes noted in the scoliotic spine. No acute osseous abnormality noted. Soft tissues: No soft tissue gas or radiopaque foreign body noted. Diffuse body wall edema noted. Vasculature: No abdominal aortic aneurysm. Lymph nodes: No pathologically enlarged lymph nodes. IMPRESSION: 1. 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 2. Irregular distal pancreatic mass appears slightly enlarged. 3. Increased ascites. ACT 112: N/A Electronically signed by Kylah Tatum 05-07-2024 5:36 PM
[2024-05-07 18:38] LABS: Appearance Urine Clear (Clear); Bilirubin Urine Negative (Negative); Blood Urine Negative (Negative); Color Urine Yellow; Glucose Urine UA 3+ (Negative); Ketones Urine 1+ (Negative); Leukocyte Esterase Urine Negative (Negative); Nitrite Urine Negative (Negative); Protein Urine 1+ (Negative); Specific Gravity Urine 1.015 (1.000-1.030); Urobilinogen Urine Negative (Negative)
[2024-05-07 18:58] LABS: Bacteria Urine None Seen (None Seen); Epithelial Cell Urine 0-2 /hpf (0-2); Hyaline Casts Urine Present /lpf (None Presnt); RBC Urine 0-2 /hpf (0-2); WBC Urine 0-5 /hpf (0-5)
--- NOTE | 2024-05-07 19:32 | Communication Note ---
Date of Service: May 07, 2024 Called for emergency department for consultation for pancreatic neoplasm with invasion into the transverse colon with colonic obstruction. Recommend transfer to a tertiary center for further evaluation.
[2024-05-07] MEDS ORDERED: ACETAMINOPHEN 500 MG TAB PO PRN (19:51)
--- NOTE | 2024-05-07 20:30 | History & Physical Report ---
Date of Service May 07, 2024 Assessment & Plan (1) Pancreatic mass: (2) Colonic obstruction: Plan: Please refer to Dr. Welch's addendum for assessment and plan. History of Present Illness Chief Complaint: Referred by oncologist for obstruction Primary Care Provider: Amos Gomez DO 78-year-old male with PMH dyslipidemia, gout, DM type II, EDWARD, HTN, arthritis, and recently diagnosed pancreatic tail adenocarcinoma who presents by referral of his outpatient oncologist for evaluation of obstruction. Patient recently admitted to [facility] 04/20 - 04/23 for evaluation of abdominal pain, fatigue, weight loss. Workup revealed a pancreatic tail mass. Patient underwent EUS with biopsy on 04/30 and biopsy showed adenocarcinoma. Patient had an appointment with oncology Dr. Michi Quiroga yesterday. Patient reported constipation and abdominal pain. Dr. Quiroga was concerned for possible obstruction but patient declined further intervention at the time as he is seeking second opinion at [facility]. Patient was started on Lactulose. He didn't have much improvement so he was sent for abdominal XR that showed obstruction. Patient was then referred to the ED for further evaluation. Patient reports that after the XR he passed a significant amount of flatulence and had a small bowel movement. He reports he is now feeling improved. He has had some nausea and poor appetite but denies vomiting. No fever or chills. Denies chest pain and shortness of breath. Has developed edema around his ankles since his last hospitalization. In the ED, patient is hemodynamically stable. CT ABD/pelvis shows significant enterocolitis with colonic obstruction at the level of the splenic flexure likely secondary to pancreatic invasive neoplasm. General surgery was consulted who recommended transfer to tertiary care center. Patient has been is excepted to [facility] however there are not any beds available at this time. Allergies Allergy/AdvReac Type Severity Reaction Status Date / Time avocado Allergy Mild SWELLING Verified 05/07/24 20:53 lisinopril AdvReac Intermediate cough Verified 05/07/24 20:53 losartan AdvReac Intermediate cough Verified 05/07/24 20:53 Home Medications Medication Instructions Recorded Confirmed Type celecoxib 200 mg capsule 200 mg PO DAILY 04/21/24 05/07/24 History empagliflozin 25 mg tablet 25 mg PO DAILY 04/21/24 05/07/24 History cholecalciferol (vitamin D3) 25 25 mcg PO DAILY 05/07/24 05/07/24 History mcg (1,000 unit) capsule (Vitamin D3) lactulose 10 gram/15 mL oral 30 ml PO QID 05/07/24 05/07/24 History solution Past Med/Surg History Problem List (Updated 05/07/24 @ 21:59 by Tariq James DO) Abdominal pain (Acute) Abdominal neoplasm without bowel obstruction (Acute) Colonic obstruction Pancreatic mass (Acute) Mixed conductive and sensorineural hearing loss of left ear with restricted hearing of right ear HTN (hypertension) Diabetic peripheral neuropathy associated with type 2 diabetes mellitus Barotrauma, otic (Acute) 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, with necrosis of bone (Acute) Acquired foot deformity (Chronic) Medical History (Updated 05/07/24 @ 21:59 by Tariq James DO) Multiple lipomas Arthritis Surgical History History of ankle surgery H/O carpal tunnel repair S/P hip replacement History of ankle joint replacement Social History Smoking Status: Never smoker Second Hand Exposure: No; Do You Dip or Chew Tobacco: No; Hx Alcohol Use: Yes Alcohol type: beer and wine Alcohol Intake Frequency: Monthly or Less Alcohol Intake Frequency Comment: Weekly Hx Substance Use: No Preferred Language: Yoruba Communication Ability: Effective Visual Impairment: Limited Hearing Ability: Normal Marketing Strategist Required: No Beliefs That Will Affect Care: None marital status: Current Living Situation: Spouse current occupational status: retired 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 Other Information That Helps Us Care for You: No Feels Safe at Home: Yes Safety Concerns: Feels Safe At This Time Diet: diabetic Assistive Devices: Glasses Physical Exam Constitutional: + ill appearing (chronically) and + thin ; no acute distress Eyes: PERRL, conjunctivae normal, anicteric sclerae ENMT: external ear and nose normal, oropharynx normal Respiratory: normal respiratory effort, lungs clear to auscultation Cardiovascular: Rate/Rhythm: regular rate and regular rhythm Vessels: normal peripheral pulses Extremities: + edema (+2 pitting ankle and pedal edema) Gastrointestinal (Abdomen): Inspection/Auscultation: abdomen not distended Percussion/Palpation: abdomen soft; abdomen nontender Musculoskeletal: no cyanosis or clubbing, extremities motor strength 5/5 Skin: no rashes, warm and dry Neurologic: PERRL, EOMI, accommodation nl, no face palsy, no dysarthria Psychiatric: A+Ox3, euthymic affect Results & Data Results & Data Vital Signs (Past 12 Hours) Vital Signs Temp Pulse Pulse Resp BP BP Pulse Ox 05/07/24 19:00 98 H 18 136/81 95 05/07/24 18:00 36.9 C 99 H 20 128/84 98 05/07/24 16:16 36.9 C 99 H 20 137/89 98 05/07/24 15:11 36.7 C 96 H 18 112/71 97 O2 Del Method 05/07/24 19:00 Room Air 05/07/24 18:00 Room Air 05/07/24 16:16 Room Air 05/07/24 15:11 Room Air Laboratory Results Short CBC 05/07/24 Range/Units 15:57 WBC 5.78 (4.8-10.8) K/ul Hgb 12.2 L (14.0-18.0) g/dl Hct 35.7 L (42.0-52.0) % Plt Count 236 (130-400) K/uL BMP 05/07/24 15:57 Sodium 136 Potassium 3.9 Chloride 103 Carbon Dioxide 21 BUN 55 H Creatinine 1.47 H Glucose 276 H Calcium 9.7 Liver Function 05/07/24 Range/Units 15:57 Total Bilirubin 1.4 H (0.2-1.0) mg/dl AST 15 (13-39) U/L ALT 15 (7-52) U/L Alkaline Phosphatase 75 (34-104) U/L Albumin 4.1 (3.4-5.0) gm/dl Urine 05/07/24 Range/Units 18:14 Urine Color Yellow Urine Appearance Clear (Clear) Urine pH 5.0 (4.5-7.5) Ur Specific [place] 1.015 (1.000-1.030) Urine Protein 1+ H (Negative) Urine Glucose (UA) 3+ H (Negative) Diagnostic Findings Abdomen/Pelvis CT 05/07/24 15:39 EXAM: CT Abdomen and Pelvis With Intravenous Contrast INDICATION: Evaluate for small bowel obstruction. TECHNIQUE: Axial computed tomography images of the abdomen and pelvis with intravenous contrast. Sagittal and coronal reformatted images were created and reviewed. This CT exam was performed using one or more of the following dose reduction techniques: automated exposure control, adjustment of the mA and/or kV according to patient size, and/or use of iterative reconstruction technique. CONTRAST: 94ml of Optiray 320 was administered intravenously. COMPARISON: 04/20/2024 FINDINGS: Limitations: None. Lung bases: No abnormality noted. Pleural space: No visualized pleural effusion or pneumothorax. Heart: No abnormality noted. Mediastinum: No abnormality noted. ABDOMEN: Liver: No abnormality noted. Gallbladder and bile ducts: No calcified stones or surrounding fluid. Pancreas: Distal pancreatic irregular mass has probably increased in size measuring approximately 6.5 cm transverse by 4.5 cm AP by 3.8 cm long. There is spiculation of the surrounding tissues likely causing colonic obstruction. Or fluid collection in the pancreatic bed. Spleen: No significant abnormality noted. Adrenals: No significant abnormality noted. Kidneys and ureters: There are punctate nonobstructing stones in each kidney. No hydronephrosis. No urinary gas. Stomach and bowel: There is significant interval change with increased distention of the redundant colon to the level of the splenic flexure with moderate to severe enterocolitis. No pneumatosis identified. PELVIS: Appendix: No findings to suggest acute appendicitis. Bladder: No filling defects to suggest mass or large stone. No inflammation. Reproductive: No abnormalities noted. ABDOMEN and PELVIS: Intraperitoneal space: Worsening abdominal and pelvic ascites. No free air. No abscess. Bones/joints: Degenerative changes noted in the scoliotic spine. No acute osseous abnormality noted. Soft tissues: No soft tissue gas or radiopaque foreign body noted. Diffuse body wall edema noted. Vasculature: No abdominal aortic aneurysm. Lymph nodes: No pathologically enlarged lymph nodes. IMPRESSION: 1. 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 2. Irregular distal pancreatic mass appears slightly enlarged. 3. Increased ascites. ACT 112: N/A Electronically signed by Kylah Tatum 05-07-2024 5:36 PM Code Status & VTE Plan VTE Prophylaxis Plan VTE Prophylaxis will be ordered: Yes Supervising Physician Co-Signing Physician Notes IM ATTENDING : Patient seen and examined. History obtained from patient and records. Concur with salient points upon review of preceding documentation by SABRINA Epstein. I take responsibility for plan of care below. In addition, LE venous Doppler showed Positive for deep venous thrombosis in the right popliteal and peroneal veins FINAL ASSESSMENT AND PLAN as follows : Recurrent bowel obstruction secondary to pancreatic malignancy ARF secondary to illness Acute RLE DVT Hypertension, stable, not currently on maintenance medications due to borderline BP as per patient. DM2 on oral medications, suboptimal control as of recent hemoglobin A1c of 8 last April 2024 Chronic anemia, hemoglobin at baseline Admit to MedSurg Bowel rest NGT insertion if with emesis C transfer once bed available (Patient accepted for transfer by Dr. Brenner of General Surgery as per ED provider. Transfer paperwork already completed at the ER.) Monitor creatinine response to IVF, hold home celecoxib for now IV heparin for acute DVT Basal bolus insulin adjusted for n.p.o. status, ISS BG goal 1 10-1 40 Full code I spent a total of 30 minutes coordinating, documenting, and providing care for this patientexcludingtime spent by another provider/QHP. Text document was generated using [employer] voice recognition software. It may contain grammatical or spelling errors. Kindly contact undersigned for clarification of any documentation item in question.
[2024-05-07] MEDS ORDERED: PROMETHAZINE 6.25 MG/50.25 ML BAG IV PRN (21:06)
[2024-05-07] MEDS ORDERED: traMADol HCL 50 MG TABLET PO PRN (21:06)
--- NOTE | 2024-05-07 21:43 | XRay Report ---
Exam(s): XR CXR 1 VIEW EXAM: XR Chest, 1 View CLINICAL HISTORY: Reason for exam: renal failure, ankle swellling. TECHNIQUE: Frontal view of the chest. COMPARISON: No relevant prior studies available. FINDINGS: Lungs: Unremarkable. No consolidation. Pleural space: Unremarkable. No pneumothorax. Heart: Unremarkable. No cardiomegaly. Mediastinum: Unremarkable. Normal mediastinal contour. Bones/joints: Unremarkable. No acute fracture. IMPRESSION: No acute pulmonary process identified Electronically signed by: Edd Ballard MD 05/07/24 21:41 PM
[2024-05-07] MEDS ORDERED: CARBOHYDRATES FOR HYPOGLYCEMIA PO PRN (22:05)
[2024-05-07] MEDS ORDERED: GLUCOSE 10 TAB/TUBE PO PRN (22:05)
[2024-05-07] MEDS ORDERED: DEXTROSE 50% 50 ML SYRINGE IV PRN (22:05)
[2024-05-07] MEDS ORDERED: GLUCAGON FOR INJ 1 MG VIAL SQ PRN (22:05)
[2024-05-07] MEDS ORDERED: GLUCOSE 40% GEL 15 GM TUBE PO PRN (22:05)
[2024-05-07] MEDS: ALBUMIN 25% 25 GM/100 ML VIAL IV ONE (22:34)
[2024-05-07] MEDS: INSULIN ASPART PER UNIT CHARGE SC SCH (22:35)
--- NOTE | 2024-05-07 22:40 | Ultrasound Report ---
Exam(s): US VENOUS BILATERAL LOWER EXTREMITIES EXAM: US Duplex Bilateral Lower Extremities Veins CLINICAL HISTORY: Reason for exam: swelling. TECHNIQUE: Real-time duplex ultrasound scan of the bilateral lower extremity veins integrating B-mode two-dimensional vascular structure, Doppler spectral analysis, color flow Doppler imaging and compression. COMPARISON: No relevant prior studies available. FINDINGS: Right deep veins: There is thrombosis seen in proximal to distal popliteal vein. There is deep venous thrombosis seen in both peroneal veins. Rest of the deep venous system shows normal Doppler flow and compressibility Right superficial veins: Unremarkable. No thrombus in the visualized right great saphenous vein. Left deep veins: No evidence of deep venous thrombosis. Left superficial veins: Unremarkable. No thrombus in the visualized left great saphenous vein. Soft tissues: No acute findings. No popliteal cyst. IMPRESSION: Positive for deep venous thrombosis in the right popliteal and peroneal veins Electronically signed by: Edd Ballard MD 05/07/24 22:39 PM
[2024-05-07 23:36] VITALS: RESP 16
[2024-05-08] MEDS ORDERED: Heparin IV Adult Wt-Based Standard *NO* INITIAL Bolus Protocol IV STA (01:14)
[2024-05-08] MEDS: INSULIN ASPART PER UNIT CHARGE SC SCH (02:00)
[2024-05-08] MEDS: HEPARIN 25000 UNIT/500 ML D5W 25,000 UNITS/500 ML BAG IV SCH (02:20)
[2024-05-08 02:33] LABS: Basophils # (auto) 0.03 K/uL (0.00-0.20); Basophils % (auto) 0.6 %; Eosinophils # (auto) 0.08 K/uL (0.00-0.50); Eosinophils % (auto) 1.7 %; Hematocrit (blood only) 30.4 % (42.0-52.0); Hemoglobin 10.5 g/dl (14.0-18.0); Immature Granulocytes # (auto) 0.01 K/uL (0.01-0.20); Immature Granulocytes % (auto) 0.2 %; Lymphocytes # (auto) 0.96 K/uL (1.20-3.40); Lymphocytes % (auto) 20.3 %; Mean Corpuscular Hemoglobin 31.6 pg (25.0-34.0); Mean Corpuscular Hgb Conc 34.5 g/dL (32.0-36.0); Mean Corpuscular Volume 91.6 fL (80.0-100.0); Mean Platelet Volume 10.3 fL (9.4-12.4); Monocytes % (auto) 14.8 %; Neutrophils # (auto) 2.96 K/uL (1.40-6.50); Neutrophils % (auto) 62.4 %; Platelet Count 153 K/uL (130-400); RDW Coefficient of Variation 13.6 % (11.5-14.5); RDW Standard Deviation 45.3 fL (36.4-46.3); Red Blood Count 3.32 M/uL (4.70-6.10); White Blood Count 4.74 K/ul (4.8-10.8)
[2024-05-08 03:00] LABS: INR 1.1 (0.9-1.1); Partial Thromboplastin Time 28 Seconds (21-31); Prothrombin Time 11.9 Seconds (9.0-12.0)
[2024-05-08] MEDS: ALBUMIN 25% 25 GM/100 ML VIAL IV ONE (05:18)
[2024-05-08] MEDS ORDERED: HEPARIN SOD 5,000 UNIT/0.5 ML VIAL SQ SCH (06:00)
[2024-05-08 06:38] LABS: Basophils # (auto) 0.03 K/uL (0.00-0.20); Basophils % (auto) 0.6 %; Eosinophils # (auto) 0.08 K/uL (0.00-0.50); Eosinophils % (auto) 1.7 %; Hematocrit (blood only) 29.5 % (42.0-52.0); Hemoglobin 10.1 g/dl (14.0-18.0); Immature Granulocytes # (auto) 0.01 K/uL (0.01-0.20); Immature Granulocytes % (auto) 0.2 %; Lymphocytes # (auto) 1.02 K/uL (1.20-3.40); Lymphocytes % (auto) 21.3 %; Mean Corpuscular Hemoglobin 31.7 pg (25.0-34.0); Mean Corpuscular Hgb Conc 34.2 g/dL (32.0-36.0); Mean Corpuscular Volume 92.5 fL (80.0-100.0); Mean Platelet Volume 10.4 fL (9.4-12.4); Monocytes # (auto) 0.64 K/uL (0.11-0.59); Monocytes % (auto) 13.4 %; Neutrophils % (auto) 62.8 %; Platelet Count 160 K/uL (130-400); RDW Coefficient of Variation 13.5 % (11.5-14.5); RDW Standard Deviation 46.1 fL (36.4-46.3); Red Blood Count 3.19 M/uL (4.70-6.10); White Blood Count 4.78 K/ul (4.8-10.8)
[2024-05-08 06:39] LABS: Albumin Globulin Ratio 1.7 (0.9-2); Albumin Level 3.4 gm/dl (3.4-5.0); BUN Creatinine Ratio 39.3 (10-20); Bilirubin,Total 1.1 mg/dl (0.2-1.0); Calcium 8.7 mg/dl (8.6-10.3); Total Protein 5.4 gm/dl (6.0-8.3)
[2024-05-08 07:17] VITALS: TEMP 97.9; O2SAT 95
[2024-05-08] MEDS: LACTULOSE SYRUP 20 GM/30 ML UDC PO SCH (08:21)
[2024-05-08] MEDS ORDERED: LACTULOSE SYRUP 10 GM/15 ML BTL 960 ML PO SCH (09:00)
[2024-05-08 09:21] LABS: ANTI-Xa, UFH(UnfractionatedHep 0.27 IU/ml (0.3-0.7)
[2024-05-08] MEDS: LANTUS PER UNIT CHARGE SQ SCH (09:29)
--- NOTE | 2024-05-08 10:44 | Hospitalist Progress Note ---
Date of Service May 08, 2024 Assessment & Plan Admission and Anticipated Discharge Date Admission Date: May 07, 2024 Results & Data Results & Data Vital Signs (Past 12 Hours) Vital Signs Temp Pulse Resp BP Pulse Ox O2 Del Method 05/08/24 07:14 36.6 C 82 16 115/69 95 Room Air 05/08/24 05:15 36.3 C L 83 16 112/67 93 Room Air 05/08/24 00:35 36.7 C 86 16 116/69 94 Room Air
[2024-05-08] MEDS: POTASSIUM CHLORIDE CRTAB 20 MEQ TABCR PO STA (10:50)
[2024-05-08 14:33] VITALS: BP 111/74; PULSE 86
--- NOTE | 2024-05-08 15:22 | Communication Note ---
Date of Service: May 08, 2024 By CMS guidelines, a determination that the admission or continued stay is not medically necessary has been made by a member of the UR committee and a phys ician for this hospital stay, therefore a Code 44 will be completed and the Inpatient admission will be changed to outpatient.
--- NOTE | 2024-05-08 15:23 | Discharge Summary ---
Discharge Summary Date of Service May 08, 2024 Principal Dx & Hospital Course #1 = Principal Diagnosis (1) Pancreatic mass: (2) Colonic obstruction: Plan 78-year-old male with PMHx significant for dyslipidemia, gout, DM type II, EDWARD, HTN, arthritis, and recently diagnosed pancreatic tail adenocarcinoma who presents by referral of his outpatient oncologist for evaluation of obstruction. Per admitting provider with addendum: "Recurrent bowel obstruction secondary to pancreatic malignancy ARF secondary to illness Acute RLE DVT Hypertension, stable, not currently on maintenance medications due to borderline BP as per patient. DM2 on oral medications, suboptimal control as of recent hemoglobin A1c of 8 last April 2024 Chronic anemia, hemoglobin at baseline Admitted to [facility] Bowel rest, NPO status but pt allowed sips and chips No NGT insertion was needed as he had no episodes of emesis [facility] transfer once bed available (Patient accepted for transfer by Dr. Brenner of General Surgery as per ED provider. Transfer paperwork already completed at the ER.) Creatinine with improved response to IV fluids, was within normal limits on discharge, held home celecoxib IV heparin for acute DVT Basal bolus insulin protocol adjusted for n.p.o. status Full code" Notes For Next Care Provider As above Medication Changes From Visit None- pt transferred to [facility] Admission HPI Per Admitting Provider 78-year-old male with PMH dyslipidemia, gout, DM type II, EDWARD, HTN, arthritis, and recently diagnosed pancreatic tail adenocarcinoma who presents by referral of his outpatient oncologist for evaluation of obstruction. Patient recently admitted to [facility] 04/20 - 04/23 for evaluation of abdominal pain, fatigue, weight loss. Workup revealed a pancreatic tail mass. Patient underwent EUS with biopsy on 04/30 and biopsy showed adenocarcinoma. Patient had an appointment with oncology Dr. Michi Quiroga yesterday. Patient reported constipation and abdominal pain. Dr. Quiroga was concerned for possible obstruction but patient declined further intervention at the time as he is seeking second opinion at [facility]. Patient was started on Lactulose. He didn't have much improvement so he was sent for abdominal XR that showed obstruction. Patient was then referred to the ED for further evaluation. Patient reports that after the XR he passed a significant amount of flatulence and had a small bowel movement. He reports he is now feeling improved. He has had some nausea and poor appetite but denies vomiting. No fever or chills. Denies chest pain and shortness of breath. Has developed edema around his ankles since his last hospitalization. In the ED, patient is hemodynamically stable. CT ABD/pelvis shows significant enterocolitis with colonic obstruction at the level of the splenic flexure likely secondary to pancreatic invasive neoplasm. General surgery was consulted who recommended transfer to tertiary care center. Patient has been is excepted to [facility] however there are not any beds available at this time. Admission Exam Per Admitting Provider Constitutional: + ill appearing (chronically) and + thin ; no acute distress Eyes: PERRL, conjunctivae normal, anicteric sclerae ENMT: external ear and nose normal, oropharynx normal Respiratory: normal respiratory effort, lungs clear to auscultation Cardiovascular: Rate/Rhythm: regular rate and regular rhythm Vessels: normal peripheral pulses Extremities: + edema (+2 pitting ankle and pedal edema) Gastrointestinal (Abdomen): Inspection/Auscultation: abdomen not distended Percussion/Palpation: abdomen soft; abdomen nontender Musculoskeletal: no cyanosis or clubbing, extremities motor strength 5/5 Skin: no rashes, warm and dry Neurologic: PERRL, EOMI, accommodation nl, no face palsy, no dysarthria Psychiatric: A+Ox3, euthymic affect Discharge Exam General: Alert, oriented. No acute distress Psych: Appropriate mood and affect HEENT: NC/AT CV: RRR Resp: Breath sounds clear bilaterally, no increased effort of breathing Abdomen: BS+ Soft, tender in RLQ Extremities: edema in lower extremities bilaterally, R>L. Updated Medication List Medication Instructions Recorded Confirmed Type celecoxib 200 mg capsule 200 mg PO DAILY 04/21/24 05/07/24 History empagliflozin 25 mg tablet 25 mg PO DAILY 04/21/24 05/07/24 History cholecalciferol (vitamin D3) 25 25 mcg PO DAILY 05/07/24 05/07/24 History mcg (1,000 unit) capsule (Vitamin D3) lactulose 10 gram/15 mL oral 30 ml PO QID 05/07/24 05/07/24 History solution Hospital Stay Data Diagnostic Imagining Performed 05/07/24 15:39 CT abd pelvis IV con only Stat 05/07/24 21:04 US venous doppler LE BI Stat Abdomen/Pelvis CT 05/07/24 15:39 EXAM: CT Abdomen and Pelvis With Intravenous Contrast INDICATION: Evaluate for small bowel obstruction. TECHNIQUE: Axial computed tomography images of the abdomen and pelvis with intravenous contrast. Sagittal and coronal reformatted images were created and reviewed. This CT exam was performed using one or more of the following dose reduction techniques: automated exposure control, adjustment of the mA and/or kV according to patient size, and/or use of iterative reconstruction technique. CONTRAST: 94ml of Optiray 320 was administered intravenously. COMPARISON: 04/20/2024 FINDINGS: Limitations: None. Lung bases: No abnormality noted. Pleural space: No visualized pleural effusion or pneumothorax. Heart: No abnormality noted. Mediastinum: No abnormality noted. ABDOMEN: Liver: No abnormality noted. Gallbladder and bile ducts: No calcified stones or surrounding fluid. Pancreas: Distal pancreatic irregular mass has probably increased in size measuring approximately 6.5 cm transverse by 4.5 cm AP by 3.8 cm long. There is spiculation of the surrounding tissues likely causing colonic obstruction. Or fluid collection in the pancreatic bed. Spleen: No significant abnormality noted. Adrenals: No significant abnormality noted. Kidneys and ureters: There are punctate nonobstructing stones in each kidney. No hydronephrosis. No urinary gas. Stomach and bowel: There is significant interval change with increased distention of the redundant colon to the level of the splenic flexure with moderate to severe enterocolitis. No pneumatosis identified. PELVIS: Appendix: No findings to suggest acute appendicitis. Bladder: No filling defects to suggest mass or large stone. No inflammation. Reproductive: No abnormalities noted. ABDOMEN and PELVIS: Intraperitoneal space: Worsening abdominal and pelvic ascites. No free air. No abscess. Bones/joints: Degenerative changes noted in the scoliotic spine. No acute osseous abnormality noted. Soft tissues: No soft tissue gas or radiopaque foreign body noted. Diffuse body wall edema noted. Vasculature: No abdominal aortic aneurysm. Lymph nodes: No pathologically enlarged lymph nodes. IMPRESSION: 1. 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 2. Irregular distal pancreatic mass appears slightly enlarged. 3. Increased ascites. ACT 112: N/A Electronically signed by Kylah Tatum 05-07-2024 5:36 PM Chest X-Ray 05/07/24 20:14 Exam(s): XR CXR 1 VIEW EXAM: XR Chest, 1 View CLINICAL HISTORY: Reason for exam: renal failure, ankle swellling. TECHNIQUE: Frontal view of the chest. COMPARISON: No relevant prior studies available. FINDINGS: Lungs: Unremarkable. No consolidation. Pleural space: Unremarkable. No pneumothorax. Heart: Unremarkable. No cardiomegaly. Mediastinum: Unremarkable. Normal mediastinal contour. Bones/joints: Unremarkable. No acute fracture. IMPRESSION: No acute pulmonary process identified Electronically signed by: Edd Ballard MD 05/07/24 21:41 PM Venous Doppler Study 05/07/24 21:04 Exam(s): US VENOUS BILATERAL LOWER EXTREMITIES EXAM: US Duplex Bilateral Lower Extremities Veins CLINICAL HISTORY: Reason for exam: swelling. TECHNIQUE: Real-time duplex ultrasound scan of the bilateral lower extremity veins integrating B-mode two-dimensional vascular structure, Doppler spectral analysis, color flow Doppler imaging and compression. COMPARISON: No relevant prior studies available. FINDINGS: Right deep veins: There is thrombosis seen in proximal to distal popliteal vein. There is deep venous thrombosis seen in both peroneal veins. Rest of the deep venous system shows normal Doppler flow and compressibility Right superficial veins: Unremarkable. No thrombus in the visualized right great saphenous vein. Left deep veins: No evidence of deep venous thrombosis. Left superficial veins: Unremarkable. No thrombus in the visualized left great saphenous vein. Soft tissues: No acute findings. No popliteal cyst. IMPRESSION: Positive for deep venous thrombosis in the right popliteal and peroneal veins Electronically signed by: Edd Ballard MD 05/07/24 22:39 PM Discharge Instructions Given to Patient (Per Discharging Provider) 78-year-old male with PMHx significant for dyslipidemia, gout, DM type II, EDWARD, HTN, arthritis, and recently diagnosed pancreatic tail adenocarcinoma who presents by referral of his outpatient oncologist for evaluation of obstruction. Per admitting provider with addendum: "Recurrent bowel obstruction secondary to pancreatic malignancy ARF secondary to illness Acute RLE DVT Hypertension, stable, not currently on maintenance medications due to borderline BP as per patient. DM2 on oral medications, suboptimal control as of recent hemoglobin A1c of 8 last April 2024 Chronic anemia, hemoglobin at baseline Admitted to [facility] Bowel rest, NPO status but pt allowed sips and chips No NGT insertion was needed as he had no episodes of emesis [facility] transfer once bed available (Patient accepted for transfer by Dr. Brenner of General Surgery as per ED provider. Transfer paperwork already completed at the ER.) Creatinine with improved response to IV fluids, was within normal limits on discharge, held home celecoxib IV heparin for acute DVT Basal bolus insulin protocol adjusted for n.p.o. status Full code" Total Time Total Time Spent Total Time Spent (In Minutes): 60
[2024-05-08 16:04] LABS: ANTI-Xa, UFH(UnfractionatedHep 0.46 IU/ml (0.3-0.7)
== END 2024-05-08 17:43 | disposition short-term general hospital (02) | DRG 436 ==
LOC: ED 14:53 → 3E 20:18

== ENCOUNTER 2024-05-21 11:22 | Inpatient (IN) ==
--- NOTE | 2024-05-21 12:09 | XRay Report ---
XR chest 1V portable CLINICAL HISTORY: Dyspnea COMPARISON STUDY: 05/07/2024 FINDINGS: Inspiration is very shallow which limits the exam. Heart size and pulmonary vasculature are normal. There is mild stranding in the lung bases. No other consolidation or pleural effusion. No pn eumothorax. IMPRESSION: Shallow inspiration with likely lung base atelectasis. Consider follow-up 2 view chest w ith deep inspiration. ACT 112: Negative or not required by law. Electronically signed by: Lalo Leon M.D. 05/21/2024 12:07 PM
[2024-05-21 12:13] LABS: Basophils # (auto) 0.02 K/uL (0.00-0.20); Basophils % (auto) 0.3 %; Eosinophils # (auto) 0.07 K/uL (0.00-0.50); Eosinophils % (auto) 0.9 %; Hematocrit (blood only) 33.9 % (42.0-52.0); Hemoglobin 11.2 g/dl (14.0-18.0); Immature Granulocytes # (auto) 0.04 K/uL (0.01-0.20); Immature Granulocytes % (auto) 0.5 %; Lymphocytes # (auto) 0.44 K/uL (1.20-3.40); Lymphocytes % (auto) 5.5 %; Mean Corpuscular Hemoglobin 32.4 pg (25.0-34.0); Mean Platelet Volume 9.8 fL (9.4-12.4); Monocytes # (auto) 0.53 K/uL (0.11-0.59); Monocytes % (auto) 6.6 %; Neutrophils % (auto) 86.2 %; Platelet Count 182 K/uL (130-400); RDW Coefficient of Variation 20.7 % (11.5-14.5); RDW Standard Deviation 70.1 fL (36.4-46.3); Red Blood Count 3.46 M/uL (4.70-6.10)
[2024-05-21 12:31] LABS: Anisocytosis Present
[2024-05-21 12:39] LABS: Albumin Globulin Ratio 1.4 (0.9-2); Albumin Level 3.4 gm/dl (3.4-5.0); BUN Creatinine Ratio 31.6 (10-20); Calcium 8.7 mg/dl (8.6-10.3); Creatinine Clr Calc Pharmacy 64.1 ml/min; Globulin 2.5 gm/dl (2.5-4.0); Magnesium 2.1 mg/dl (1.7-2.4); Potassium 4.2 mmol/L (3.5-5.1); Total Protein 5.9 gm/dl (6.0-8.3)
[2024-05-21 12:41] LABS: Prothrombin Time 11.2 Seconds (9.0-12.0)
--- NOTE | 2024-05-21 12:41 | Emergency Department Note ---
Impression & Plan Hypoxia, Pulmonary embolism, Acute dyspnea, Bilateral pleural effusion, Elevated troponin ED Provider Note HISTORY OF PRESENT ILLNESS: Patient is a 78-year-old male presenting with shortness of breath. Patient presents via EMS from [facility]. Patient reportedly has been having increasing shortness of breath over the last 2 days. He was so short of breath today he was unable to complete his morning exercises. He does not normally wear any supplemental oxygen at baseline. He states he only wears his CPAP at night. He denies any recent cough. Denies any fevers or chest pain. Denies any recent sick contact exposures. He has a history of pancreatic cancer. Denies any history of PE, but does have a history of a DVT in the right lower extremity. Patient reportedly was very short of breath and hypoxic at his facility, prompting them to call 911. ROS: as above PHYSICAL EXAM: Constitutional: Patient appears in no acute distress. Cachectic appearing HENT: Head: Normocephalic and atraumatic. Eyes: EOMI, PERRL Mouth/Throat: Mucous membranes moist. Neck: Trachea midline. Neck supple. Cardiovascular: RRR, No murmurs, rubs or gallops. Intact distal pulses. Pulmonary/Chest: No respiratory distress. Breath sounds clear and equal bilaterally. No wheezes or rales. On 2 L nasal cannula. Abdominal: Abdomen soft, no tenderness, rebound or guarding. Musculoskeletal: No edema, tenderness or deformity noted. Skin: Warm and dry. No rash, erythema, pallor or cyanosis Psychiatric: Appropriate mood and affect for situation. Neurological: Alert and keenly responsive. CN II-XII grossly intact, moving all extremities equally and fully. MDM: - Vitals signs showed tachycardia and borderline hypoxia with a saturation 90% on room air. Patient placed on 2 L nasal cannula - History obtained via patient. History as above. - Chronic conditions affecting care: pancreatic cancer; DM-2; HTN - Differential diagnoses include, but are not limited to: Congestive heart failure; acute coronary syndrome; COPD/asthma exacerbation; pulmonary edema; pulmonary embolism; pneumonia; pneumothorax; viral syndrome - Order placed for continuous cardiac monitoring. At this time, monitor showed rate of 104 bpm with normal sinus rhythm, per my interpretation. - External medical records reviewed. Discharge summary dated 05/08/2024 was reviewed. Patient was admitted that time secondary to colonic obstruction from a pancreatic mass. Patient was on IV heparin for an acute DVT. He had an episode of hematuria prior to discharge - EKG image interpreted by myself showed normal sinus rhythm. Rate tachycardic at 101 bpm. QT 308. No acute ischemic changes per - Laboratory workup interpreted by myself showed normal WBC; normal PT/INR; stable electrolytes; hyperglycemia (glucose 293); elevated troponin (22.1); normal BNP - CXR negative for pneumonia, per my interpretation. - Given patient's hypoxia and symptoms, CT PE obtained - CT PE showed small nonocclusive PE with minimal clot burden. Interval small bilateral pleural effusions. Also complete consolidation of the right lower lobe and partial consolidation of the left upper lobe concerning for potential pneumonia. - Viral respiratory panel negative - Discussion was had with showcase trimmer about patient's case and need for admission - Hospitalist, Dr. Schaefer, consulted for admission - [facility] ASSESSMENT AND PLAN: Diagnosis: acute hypoxia; pulmonary embolism; bilateral pleural effusion; elevated troponin Plan: admit Past Med/Surg History Problem List (Updated 05/21/24 @ 14:15 by Kim Rangel MD) Elevated troponin (Acute) Bilateral pleural effusion (Acute) Acute dyspnea (Acute) Pulmonary embolism (Acute) Hypoxia (Acute) Abdominal pain (Acute) Abdominal neoplasm without bowel obstruction (Acute) Colonic obstruction Pancreatic mass (Acute) Mixed conductive and sensorineural hearing loss of left ear with restricted hearing of right ear HTN (hypertension) Diabetic peripheral neuropathy associated with type 2 diabetes mellitus Barotrauma, otic (Acute) 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, with necrosis of bone (Acute) Acquired foot deformity (Chronic) Medical History (Updated 05/21/24 @ 14:15 by Kim Rangel MD) Multiple lipomas Arthritis Surgical History History of ankle surgery H/O carpal tunnel repair S/P hip replacement History of ankle joint replacement Social History Smoking Status: Never smoker Second Hand Exposure: No; Do You Dip or Chew Tobacco: No; Hx Alcohol Use: Yes Alcohol type: beer and wine Alcohol Intake Frequency: Monthly or Less Alcohol Intake Frequency Comment: Weekly Hx Substance Use: No Preferred Language: Nigerien Communication Ability: Effective Visual Impairment: Limited Hearing Ability: Normal Heel Wheeler Required: No Beliefs That Will Affect Care: None marital status: Current Living Situation: Spouse current occupational status: retired 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 Feels Safe at Home: Yes Diet: diabetic Assistive Devices: Glasses Allergies Allergies Allergy/AdvReac Type Severity Reaction Status Date / Time avocado Allergy Mild SWELLING Verified 05/07/24 20:53 lisinopril AdvReac Intermediate cough Verified 05/07/24 20:53 losartan AdvReac Intermediate cough Verified 05/07/24 20:53 Home Meds Home Medications Medication Instructions Recorded Confirmed celecoxib 200 mg capsule 200 mg PO DAILY 04/21/24 05/07/24 empagliflozin 25 mg tablet 25 mg PO DAILY 04/21/24 05/07/24 cholecalciferol (vitamin D3) 25 25 mcg PO DAILY 05/07/24 05/07/24 mcg (1,000 unit) capsule (Vitamin D3) lactulose 10 gram/15 mL oral 30 ml PO QID 05/07/24 05/07/24 solution Results & Data (ED) Vital Signs Vital Signs - 24 hr 05/21/24 11:30 05/21/24 11:30 05/21/24 11:35 Temperature 36.6 C Temperature Source Oral Pulse Rate 101 H 98 H Pulse Rate from SpO2 Sensor 98 H Pulse Rhythm Respiratory Rate 19 13 Respiratory Effort / Characteristics Non-Labored Spontaneous Respiratory Depth Normal Normal Respiratory Pattern Regular Blood Pressure 121/86 121/86 Blood Pressure Mean 97 97 Blood Pressure Position Semi-fowlers Pulse Oximetry 90 95 Oxygen Delivery Method Room Air Nasal Cannula Oxygen Flow Rate 2 Sepsis Recent Fever Within 48 Hours No Sepsis New/Unexplained Change in Mental Status No Sepsis Action Taken by Nursing No Action Required Pulse Oximetry Post Tiitration 05/21/24 11:42 05/21/24 11:42 05/21/24 12:00 Temperature Temperature Source Pulse Rate 97 H Pulse Rate from SpO2 Sensor Pulse Rhythm Regular Respiratory Rate 20 Respiratory Effort / Characteristics Respiratory Depth Respiratory Pattern Blood Pressure 103/71 Blood Pressure Mean 85 Blood Pressure Position Pulse Oximetry 93 Oxygen Delivery Method Nasal Cannula Nasal Cannula Oxygen Flow Rate 2 2 Sepsis Recent Fever Within 48 Hours Sepsis New/Unexplained Change in Mental Status Sepsis Action Taken by Nursing Pulse Oximetry Post Tiitration 92 05/21/24 12:00 05/21/24 12:00 05/21/24 12:02 Temperature Temperature Source Pulse Rate 96 H Pulse Rate from SpO2 Sensor Pulse Rhythm Respiratory Rate Respiratory Effort / Characteristics Respiratory Depth Respiratory Pattern Blood Pressure 103/71 103/71 Blood Pressure Mean 85 85 Blood Pressure Position Pulse Oximetry Oxygen Delivery Method Oxygen Flow Rate Sepsis Recent Fever Within 48 Hours Sepsis New/Unexplained Change in Mental Status Sepsis Action Taken by Nursing Pulse Oximetry Post Tiitration 05/21/24 12:06 05/21/24 12:12 05/21/24 12:30 Temperature Temperature Source Pulse Rate 95 H 95 H Pulse Rate from SpO2 Sensor 95 H 96 H Pulse Rhythm Respiratory Rate 14 15 Respiratory Effort / Characteristics Respiratory Depth Respiratory Pattern Blood Pressure 103/71 99/80 L Blood Pressure Mean 81 84 Blood Pressure Position Pulse Oximetry 94 93 Oxygen Delivery Method Nasal Cannula Oxygen Flow Rate 2 Sepsis Recent Fever Within 48 Hours Sepsis New/Unexplained Change in Mental Status Sepsis Action Taken by Nursing Pulse Oximetry Post Tiitration 05/21/24 12:30 05/21/24 12:30 05/21/24 12:30 Temperature Temperature Source Pulse Rate Pulse Rate from SpO2 Sensor Pulse Rhythm Respiratory Rate Respiratory Effort / Characteristics Respiratory Depth Respiratory Pattern Blood Pressure 99/80 L 99/80 L 99/80 L Blood Pressure Mean 84 84 84 Blood Pressure Position Pulse Oximetry Oxygen Delivery Method Oxygen Flow Rate Sepsis Recent Fever Within 48 Hours Sepsis New/Unexplained Change in Mental Status Sepsis Action Taken by Nursing Pulse Oximetry Post Tiitration 05/21/24 12:30 05/21/24 12:30 05/21/24 12:36 Temperature Temperature Source Pulse Rate 104 H Pulse Rate from SpO2 Sensor Pulse Rhythm Respiratory Rate 23 Respiratory Effort / Characteristics Respiratory Depth Respiratory Pattern Blood Pressure 99/80 L 99/80 L 98/80 L Blood Pressure Mean 84 84 86 Blood Pressure Position Pulse Oximetry 95 Oxygen Delivery Method Nasal Cannula Oxygen Flow Rate 2 Sepsis Recent Fever Within 48 Hours Sepsis New/Unexplained Change in Mental Status Sepsis Action Taken by Nursing Pulse Oximetry Post Tiitration Laboratory Data 05/21/24 11:35 05/21/24 11:35 Lab Results 05/21/24 05/21/24 05/21/24 Range/Units 11:35 12:20 12:50 WBC 8.00 (4.8-10.8) K/ul RBC 3.46 L (4.70-6.10) M/uL Hgb 11.2 L (14.0-18.0) g/dl Hct 33.9 L (42.0-52.0) % MCV 98.0 (80.0-100.0) fL MCH 32.4 (25.0-34.0) pg MCHC 33.0 (32.0-36.0) g/dL RDW Std Deviation 70.1 H (36.4-46.3) fL RDW Coeff of Олег 20.7 H (11.5-14.5) % Plt Count 182 (130-400) K/uL MPV 9.8 (9.4-12.4) fL Immature Gran % (Auto) 0.5 % Neut % (Auto) 86.2 % Lymph % (Auto) 5.5 % [place] % (Auto) 6.6 % Eos % (Auto) 0.9 % Baso % (Auto) 0.3 % Neut # (Auto) 6.90 H (1.40-6.50) K/uL Lymph # (Auto) 0.44 L (1.20-3.40) K/uL [place] # (Auto) 0.53 (0.11-0.59) K/uL Eos # (Auto) 0.07 (0.00-0.50) K/uL Baso # (Auto) 0.02 (0.00-0.20) K/uL Immature Gran # (Auto) 0.04 (0.01-0.20) K/uL Anisocytosis Present PT 11.2 (9.0-12.0) Seconds INR 1.0 (0.9-1.1) Sodium 139 (136-145) mmol/L Potassium 4.2 (3.5-5.1) mmol/L Chloride 104 (98-107) mmol/L Carbon Dioxide 26 (21-32) mmol/L Anion Gap 9 (3-11) BUN 31 H (6-23) mg/dl Creatinine 0.98 (0.6-1.4) mg/dl Est Cr Clr Drug Dosing 64.1 ml/min eGFR 78.93 BUN/Creatinine Ratio 31.6 H (10-20) Glucose 293 H (70-99(Fasting)) mg/dl Calcium 8.7 (8.6-10.3) mg/dl Magnesium 2.1 (1.7-2.4) mg/dl Total Bilirubin 2.0 H (0.2-1.0) mg/dl AST 16 (13-39) U/L ALT 11 (7-52) U/L Alkaline Phosphatase 77 (34-104) U/L Troponin I High Sens 22.1 H (0-20) pg/ml B-Natriuretic Peptide 80 (0-100) pg/ml Total Protein 5.9 L (6.0-8.3) gm/dl Albumin 3.4 (3.4-5.0) gm/dl Globulin 2.5 (2.5-4.0) gm/dl Albumin/Globulin Ratio 1.4 (0.9-2) Urine Color Yellow Urine Appearance Clear (Clear) Urine pH 5.0 (4.5-7.5) Ur Specific [place] 1.039 H (1.000-1.030) Urine Protein Negative (Negative) Urine Glucose (UA) 3+ H (Negative) Urine Ketones Trace H (Negative) Urine Blood Negative (Negative) Urine Nitrite Negative (Negative) Urine Bilirubin Negative (Negative) Urine Urobilinogen Negative (Negative) Ur Leukocyte Esterase Negative (Negative) Adenovirus (PCR) Not Detected (NotDetected) B. pertussis DNA (PCR) Not Detected (NotDetected) B.parapertussis DNA PCR Not Detected (NotDetected) C. pneumoniae DNA (PCR) Not Detected (NotDetected) Coronavirus OC43 (PCR) Not Detected (NotDetected) Coronavirus HKU1 (PCR) Not Detected (NotDetected) Coronavirus 229E (PCR) Not Detected (NotDetected) SARS-CoV-2 (PCR) Not Detected (NotDetected) Coronavirus NL63 (PCR) Not Detected (NotDetected) Human Metapneumovir PCR Not Detected (NotDetected) Influenza Type A (PCR) Not Detected (NotDetected) Influenza Type B (PCR) Not Detected (NotDetected) M. pneumoniae (PCR) Not Detected (NotDetected) Parainfluenza 1 (PCR) Not Detected (NotDetected) Parainfluenza 2 (PCR) Not Detected (NotDetected) Parainfluenza 3 (PCR) Not Detected (NotDetected) Parainfluenza 4 (PCR) Not Detected (NotDetected) RSV (PCR) Not Detected (NotDetected) Entero/Rhino (PCR) Not Detected (NotDetected) Administered Medications Discontinued Medications Ioversol (Optiray 320 125ml) 119 ml IV ONCE ONE Stop: 05/21/24 13:57 Last Admin: 05/21/24 13:56 Dose: 119 ml Documented By: [employer] Data Radiologist's Impression: Chest X-Ray 05/21/24 11:42 XR chest 1V portable CLINICAL HISTORY: Dyspnea COMPARISON STUDY: 05/07/2024 FINDINGS: Inspiration is very shallow which limits the exam. Heart size and pulmonary vasculature are normal. There is mild stranding in the lung bases. No other consolidation or pleural effusion. No pneumothorax. IMPRESSION: Shallow inspiration with likely lung base atelectasis. Consider follow-up 2 view chest with deep inspiration. ACT 112: Negative or not required by law. Electronically signed by: Lalo Leon M.D. 05/21/2024 12:07 PM Chest CTA 05/21/24 13:35 CT angio chest PE protocol CT DOSE: 658.27 mGy.cm HISTORY: PE. TECHNIQUE: Multiple CTA images of the chest were obtained after the intravenous administration of 120 ml Optiray. Coronal and sagittal MIPS were obtained from the axial data set and were submitted for review. All measurements were obtained according to NASCET criteria. A dose lowering technique was utilized adhering to the principles of ALARA. COMPARISON STUDY: 04/22/2024 FINDINGS: There are small bilateral pleural effusions with complete consolidation of the right lower lobe and moderate dependent consolidation posterior left lower lobe. There is a progressive 1.5 cm spiculated density posterior inferior right upper lobe series 3 image 72. No pneumothorax. No enlarged adenopathy. No pericardial effusion. No thoracic aortic dissection or aneurysm. There are a few tiny nonocclusive pulmonary emboli in the subsegmental right upper and left lower lobe pulmonary arterial branches. RV to LV ratio is less than 1. There is prominent ascites at the visualized upper abdomen. There are moderate thoracic spine degenerative changes. IMPRESSION: 1. Small nonocclusive pulmonary emboli with minimal clot burden and no evidence of right heart strain. 2. Interval small bilateral pleural effusions. Interval complete consolidation of the right lower lobe and partial consolidation of the left lower lobe, pneumonia versus atelectasis. 3. Increased size of the spiculated nodular density posterior inferior right upper lobe. Malignancy is not excluded. 4. Large amount of ascites in the visualized upper abdomen. ACT 112: Positive. There are findings on this exam that require communication between the performing entity and the patient following Patient Test Result Information Act ([place] Act 112) guidelines. The above report was generated using voice recognition software. It may contain grammatical, syntax or spelling errors. Electronically signed by: Lalo Leon M.D. 05/21/2024 2:09 PM Discharge Plan Visit Data Chief Complaint: Shortness of Breath/Dyspnea Stated Complaint: SOB ED Provider: Kim Rangel Discharge Problem: Hypoxia, Pulmonary embolism, Acute dyspnea, Bilateral pleural effusion, Elevated troponin Forms Stand Alone Forms: My [facility] [employer] Prescriptions Prescriptions: No Action lactulose 10 gram/15 mL Solution 30 ml PO QID Hold Instructions: with colonic obstruction at this time cholecalciferol (vitamin D3) [Vitamin D3] 25 mcg (1,000 unit) Capsule 25 mcg PO DAILY celecoxib 200 mg capsule 200 mg PO DAILY Hold Instructions: with recent KATY empagliflozin 25 mg Tablet 25 mg PO DAILY Referrals Referrals: Amos Gomez DO [Primary Care Provider] -
[2024-05-21 12:44] LABS: Troponin I High Sensitivity 22.1 pg/ml (0-20)
[2024-05-21 13:44] LABS: Appearance Urine Clear (Clear); Bilirubin Urine Negative (Negative); Blood Urine Negative (Negative); Color Urine Yellow; Glucose Urine UA 3+ (Negative); Ketones Urine Trace (Negative); Leukocyte Esterase Urine Negative (Negative); Nitrite Urine Negative (Negative); Protein Urine Negative (Negative); Specific Gravity Urine 1.039 (1.000-1.030); Urobilinogen Urine Negative (Negative)
[2024-05-21 13:51] LABS: Adenovirus PCR Not Detected (NotDetected); Bordetella parapertussis PCR Not Detected (NotDetected); Bordetella pertussis PCR Not Detected (NotDetected); Chlamydia pneumoniae PCR Not Detected (NotDetected); Coronavirus 229E PCR Not Detected (NotDetected); Coronavirus CoV-2 (COVID19)PCR Not Detected (NotDetected); Coronavirus HKU1 PCR Not Detected (NotDetected); Coronavirus NL63 PCR Not Detected (NotDetected); Coronavirus OC43PCR Not Detected (NotDetected); Human Metapneumovirus PCR Not Detected (NotDetected); Influenza A PCR Not Detected (NotDetected); Influenza B PCR Not Detected (NotDetected); Mycoplasma pneumoniae PCR Not Detected (NotDetected); Parainfluenza Virus 1 PCR Not Detected (NotDetected); Parainfluenza Virus 2 PCR Not Detected (NotDetected); Parainfluenza Virus 3 PCR Not Detected (NotDetected); Parainfluenza Virus 4 PCR Not Detected (NotDetected); Respiratory Syncytial VirusPCR Not Detected (NotDetected); Rhinovirus/Enterovirus PCR Not Detected (NotDetected)
[2024-05-21] MEDS: OPTIRAY 320 125ml IV ONE (13:56)
--- NOTE | 2024-05-21 14:11 | CT Scan Report ---
CT angio chest PE protocol CT DOSE: 658.27 mGy.cm HISTORY: PE. TECHNIQUE: Multiple CTA images of the chest were obtained after the intravenous administration of 120 ml Optiray. Coronal and sagittal MIPS were obtained from the axial data set and were submitted for review. All measurements were obtained according to NASCET criteria. A dose lowering technique was u tilized adhering to the principles of ALARA. COMPARISON STUDY: 04/22/2024 FINDINGS: There are small bilateral pleural effusions with complete consolidation of the right lower lobe and moderate dependent consolidation posterior left lower lobe. There is a progressive 1.5 cm sp iculated density posterior inferior right upper lobe series 3 image 72. No pneumothorax. No enlarged adenopathy. No pericardial effusion. No thoracic aortic dissection or aneurysm. There are a few tiny nonocclusive pulmonary emboli in the subsegmental right upper and left lower lobe pulmonary arterial branches. RV to LV ratio is less than 1. There is prominent ascites at the visualized upper abdomen. There are moderate thoracic spine degenerative changes. IMPRESSION: 1. Small nonocclusive pulmonary emboli with minimal clot burden and no evidence of right heart strain . 2. Interval small bilateral pleural effusions. Interval complete consolidation of the right lower lob e and partial consolidation of the left lower lobe, pneumonia versus atelectasis. 3. Increased size of the spiculated nodular density posterior inferior right upper lobe. Malignancy i s not excluded. 4. Large amount of ascites in the visualized upper abdomen. ACT 112: Positive. There are findings on this exam that require communication between the performing entity and the patient following Patient Test Result Information Act ([place] Act 112) guidelines. The above report was generated using voice recognition software. It may contain grammatical, syntax o r spelling errors. Electronically signed by: Lalo Leon M.D. 05/21/2024 2:09 PM
--- NOTE | 2024-05-21 15:50 | History & Physical Report ---
Date of Service May 21, 2024 Assessment & Plan (1) Acute hypoxic respiratory failure: (2) Primary pancreatic cancer with metastasis to other site: (3) Malignant ascites: (4) Malignant pleural effusion: (5) Pulmonary embolism: (6) Diabetic peripheral neuropathy associated with type 2 diabetes mellitus: (7) Deep vein thrombosis, lower right extremity: Plan Patient is a 78-year-old gentleman presents to the emergency room with acute hypoxia most likely due to ascites and pleural effusions from pancreatic cancer. Patient also noted to have some small pulmonary emboli on imaging. Admit to a monitored setting Empiric antibiotics for postobstructive pneumonia in the setting of most likely metastatic lung mass from pancreatic cancer Consult pulmonary for suspected postobstructive pneumonia, patient may need bronchoscopy CT of the abdomen pelvis to evaluate ascites IR for possible paracentesis Continue home medications as prescribed, specifically home stool regimen Oxygen support Morphine as needed for pain Extensive conversation with the patient and his at the bedside over goals of care. Patient's previous conversation with palliative care at [facility] was that he wanted to pursue all interventions and was a full code. Since that conversation he has really not thought much about his goals of care. Patient was extremely focused on getting home, extremely focused on getting to [facility] or pursuing alternative and second opinions for any type of treatment for his cancer. Would not give me a definitive answer about his desires for CPR or intubation. I explained to him that the default with that we would do everything for him which he did not refuse. Therefore the patient will be a full code. Patient and was open to discussing further with palliative care. Consultation with palliative care placed. I did express my concerns to the patient that it seems as though his pancreatic cancer is advancing much faster than any type of treatments could minimize. On CT imaging lung mass has increased in size. Follow laboratory studies Studies on ascitic fluid ordered Patient does have an IVC filter. Low suspicion that pulmonary emboli are contributing at all to the patient's symptoms at this point. Patient severe blo od loss anemia at [facility] while on anticoagulation for his DVT that led to hemorrhagic shock due to gluteal hematoma. Patient did undergo IR embolization of the left posterior gluteal artery and IVC filter placement at that time. It was determined from his discharge from [facility] that risks of recurrent spontaneous bleeding outweighed the benefits of any anticoagulation. Will not pursue full anticoagulation this hospitalization. Will use VTE prophylaxis Lovenox. 90 minutes spent on evaluation the patient, evaluation at bedside, review of records and interpretation of data. History of Present Illness Chief Complaint: Shortness of breath and hypoxia Primary Care Provider: Amos Gomez DO Patient is a 78 gentleman has had a complicated medical history 6 weeks. Patient initially admitted back in April with a pancreatic mass. This was subsequently diagnosed with pancreatic adenocarcinoma. He then returned to [facility] diagnosed with large bowel obstruction and a lower extremity DVT. He was started on anticoagulation and transferred to [facility]. At [facility] he had large-volume blood loss gluteal hemorrhage that required blood transfusions. IVC filter was placed. And a colonic stent was placed. He was then subsequently transferred to [facility] for evaluation of his pancreatic mass. There are determined to be a nonsurgical candidate while there. He also saw palliative care during that hospitalization and results of the conversations that the patient still wanted to pursue all options and remain a full code. From [facility] he was discharged to [facility] for rehabilitation. The goal rehabilitation was to get strong enough so he could undergo some palliative chemotherapy. He was noted to be hypoxic. Chest x-ray yesterday showed a effusion that was resulted today and was sent to the emergency room. In the emergency room was noted to be hypoxic. CT of the chest showed small pleural effusions and almost complete consolidation in the right lower lobe. Also started a large amount of ascites in the upper portion of the abdomen. Patient was referred to our services for ongoing care. Time of my evaluation the patient was saturating well on 2 L. He denied any real significant pain. His was at the bedside. Patient reports that he did have paracentesis 1 time before over the last few weeks and when he was in the hospital and that did help a lot of his symptoms. He is still quite very optimistic and hopeful that he will have some type of opportunity to treat his pancreatic cancer with chemoradiation. He is pursuing options in [place] and at [facility]. He also is somewhat hesitant to go back to [facility]. Denies any fever or chills, no cough or cold symptoms. His abdomen does feel full but has been moving his bowels. States he really has not been doing well with therapy and not really walking much at [facility] at all. However he would really want to go home. Allergies Allergy/AdvReac Type Severity Reaction Status Date / Time avocado Allergy Mild SWELLING Verified 05/07/24 20:53 lisinopril AdvReac Intermediate cough Verified 05/07/24 20:53 losartan AdvReac Intermediate cough Verified 05/07/24 20:53 Home Medications Medication Instructions Recorded Confirmed Type celecoxib 200 mg capsule 200 mg PO DAILY 04/21/24 05/07/24 History empagliflozin 25 mg tablet 25 mg PO DAILY 04/21/24 05/07/24 History cholecalciferol (vitamin D3) 25 25 mcg PO DAILY 05/07/24 05/07/24 History mcg (1,000 unit) capsule (Vitamin D3) lactulose 10 gram/15 mL oral 30 ml PO QID 05/07/24 05/07/24 History solution Past Med/Surg History Problem List (Updated 05/21/24 @ 16:01 by Mynor Schaefer DO) Deep vein thrombosis, lower right extremity Malignant pleural effusion Malignant ascites Primary pancreatic cancer with metastasis to other site Acute hypoxic respiratory failure Elevated troponin (Acute) Bilateral pleural effusion (Acute) Acute dyspnea (Acute) Pulmonary embolism (Acute) Hypoxia (Acute) Abdominal pain (Acute) Abdominal neoplasm without bowel obstruction (Acute) Colonic obstruction Pancreatic mass (Acute) Mixed conductive and sensorineural hearing loss of left ear with restricted hearing of right ear HTN (hypertension) Diabetic peripheral neuropathy associated with type 2 diabetes mellitus Barotrauma, otic (Acute) 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, with necrosis of bone (Acute) Acquired foot deformity (Chronic) Medical History (Updated 05/21/24 @ 16:01 by Mynor Schaefer DO) Multiple lipomas Arthritis Surgical History History of ankle surgery H/O carpal tunnel repair S/P hip replacement History of ankle joint replacement Social History Smoking Status: Never smoker Second Hand Exposure: No; Do You Dip or Chew Tobacco: No; Hx Alcohol Use: Yes Alcohol type: beer and wine Alcohol Intake Frequency: Monthly or Less Alcohol Intake Frequency Comment: Weekly Hx Substance Use: No Preferred Language: Romanian Communication Ability: Effective Visual Impairment: Limited Hearing Ability: Normal Leasing Sales Consultant Required: No Beliefs That Will Affect Care: None marital status: Current Living Situation: Spouse current occupational status: retired 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 Feels Safe at Home: Yes Diet: diabetic Assistive Devices: Glasses Review of Systems Review of Systems: Pertinent positive and negative review of systems as mentioned in the HPI Physical Exam Physical Exam: Constitutional: Alert, ill in appearance, nontoxic, cachectic and frail HEENT: Mucous membranes dry sclera clear Neck: Soft, no adenopathy Lungs: Decreased breath sounds bilaterally, right side dull to percussion senior living up the lung angel, crackles at bases on the left, no wheezes or rhonchi CV: S1-S2, regular Abdomen: Distended, fluid wave, no tenderness no appreciated masses Extremities: Ankle edema with some pretibial edema Musculoskeletal: No significant joint tenderness, evidence of muscle wasting Neuro: No focal deficits generalized weakness Psych: Cooperative, depressed affect Results & Data Results & Data Vital Signs (Past 12 Hours) Vital Signs Temp Pulse Pulse Resp BP BP Pulse Ox 05/21/24 15:00 106 H 18 128/81 100 05/21/24 12:36 104 H 23 98/80 L 95 05/21/24 12:30 99/80 L 05/21/24 12:30 99/80 L 05/21/24 12:30 99/80 L 05/21/24 12:30 99/80 L 05/21/24 12:30 99/80 L 05/21/24 12:30 99/80 L 05/21/24 12:12 95 H 15 93 05/21/24 12:06 95 H 14 103/71 94 05/21/24 12:02 96 H 05/21/24 12:00 103/71 05/21/24 12:00 103/71 05/21/24 12:00 103/71 05/21/24 11:42 97 H 20 93 05/21/24 11:42 05/21/24 11:35 98 H 13 121/86 95 05/21/24 11:30 36.6 C 101 H 19 121/86 90 O2 Del Method O2 Flow Rate 05/21/24 15:00 Nasal Cannula 2 05/21/24 12:36 Nasal Cannula 2 05/21/24 12:30 05/21/24 12:30 05/21/24 12:30 05/21/24 12:30 05/21/24 12:30 05/21/24 12:30 05/21/24 12:12 05/21/24 12:06 Nasal Cannula 2 05/21/24 12:02 05/21/24 12:00 05/21/24 12:00 05/21/24 12:00 05/21/24 11:42 Nasal Cannula 2 05/21/24 11:42 Nasal Cannula 2 05/21/24 11:35 Nasal Cannula 2 05/21/24 11:30 Room Air Diagnostic Findings Reviewed imaging, laboratory and diagnostic studies. Pertinent findings as below. Personally reviewed chest CT images, pleural effusions, consolidative right lower lobe, report of CTA noted some small pulmonary emboli as well. Personally reviewed chest x-ray, no evidence of pleural effusions Personally reviewed outside EMR, reviewed records from previous hospitalizations at [facility] and [facility] including discharge summary.. Reviewed palliative care notation. Respiratory viral panel negative Urinalysis unremarkable Total bilirubin 2.0 Glucose of 293 BUN 31 Creatinine 0.98 WBCs 8.0 Hemoglobin 0.2 Platelets of 182 Code Status & VTE Plan VTE Prophylaxis Plan VTE Prophylaxis will be ordered: Yes
--- NOTE | 2024-05-21 16:32 | CT Scan Report ---
EXAMINATION: Abdomen and pelvis CT without CLINICAL HISTORY: Pancreatic cancer PRIORS: 05/07/2024 TECHNIQUE: Contiguous axial images were obtained through the abdomen and pelvis without the use of intravenous contrast. Sagittal and coronal reformations are supplied. FINDINGS: Examination is limited without the use of intravenous contrast. A large right pleural effusion is present, appearing in the interval. An extremely large volume of ascites is present, markedly progressed in the interval. A bowel stent is present in the left upper quadrant, appearing in the interval. An IVC filter is present. Kidneys are in excretory phase suggesting prior intravenous contrast administration. No extraluminal gas is identified. Anasarca is present, appearing in the interval. Within the limitations of the study, the liver is unchanged. The probable pancreatic mass is identified projecting off of the body/tail, image 39, series 2 measuring at least 5.0 x 3.8 cm. The spleen, stomach and kidneys appear unremarkable. No dilated loops of small bowel. Large amount of formed stool present in the descending and sigmoid colon. A left total hip arthroplasty creates significant beam hardening artifact. In bone windows moderate osseous demineralization with scoliosis and degenerative change of the spine noted. Excreted intravenous contrast present in the urinary bladder. Large amount of free fluid present in the abdomen. IMPRESSION: 1. Large right pleural effusion, appearing in the interval. 2. Markedly increased ascites and anasarca, when compared to 05/07/2024. 3. Bowel stent present in the left upper quadrant, appearing in the interval with solid and liquid material in the lumen. Correlate clinically. 4. Known pancreatic mass. ACT 112: Positive. There are findings on this examination that require communication between the performing entity and the patient following Patient Test Result Information Act ([place] ACT 112) guidelines. Electronically signed by Nai David 05-21-2024 4:30 PM
[2024-05-21] MEDS: 4.5GM X1 IV STA (16:50)
[2024-05-21] MEDS ORDERED: GLUCOSE 40% GEL 15 GM TUBE PO PRN (18:19)
[2024-05-21] MEDS ORDERED: MAGNESIUM HYDROXIDE SUSP 30 ML UDC PO PRN (18:19)
[2024-05-21] MEDS ORDERED: GLUCAGON FOR INJ 1 MG VIAL SQ PRN (18:19)
[2024-05-21] MEDS ORDERED: GLUCOSE 10 TAB/TUBE PO PRN (18:19)
[2024-05-21] MEDS ORDERED: CARBOHYDRATES FOR HYPOGLYCEMIA PO PRN (18:19)
[2024-05-21] MEDS ORDERED: ONDANSETRON INJ 2 MG/ML 2 ML VIAL IV PRN (18:19)
[2024-05-21] MEDS ORDERED: ALUMINUM/MAGNESIUM SUSP 30 ML UDC PO PRN (18:19)
[2024-05-21] MEDS ORDERED: MoRPHine SULFATE 2 MG/ML CARP IV PRN (18:19)
[2024-05-21] MEDS ORDERED: DEXTROSE 50% 50 ML SYRINGE IV PRN (18:19)
[2024-05-21] MEDS: INSULIN ASPART PER UNIT CHARGE SC SCH (19:00)
[2024-05-21] MEDS: LACTULOSE SYRUP 20 GM/30 ML UDC PO SCH (20:42)
[2024-05-21] MEDS: ENOXAPARIN INJ 40 MG/0.4 ML SYR SQ SCH (20:43)
[2024-05-21] MEDS: PIPERACILLIN/TAZOBACTAM 4.5 GM/100 ML BAG IV SCH (20:49)
[2024-05-21] MEDS: DOXYCYCLINE HYCLATE 100 MG in DEXTROSE 5% MINI-B 100 ML IV STA (22:50)
[2024-05-22 06:06] LABS: Hematocrit (blood only) 30.2 % (42.0-52.0); Mean Corpuscular Hemoglobin 32.6 pg (25.0-34.0); Mean Corpuscular Hgb Conc 33.1 g/dL (32.0-36.0); Mean Corpuscular Volume 98.4 fL (80.0-100.0); Mean Platelet Volume 9.9 fL (9.4-12.4); Platelet Count 173 K/uL (130-400); RDW Coefficient of Variation 20.5 % (11.5-14.5); RDW Standard Deviation 71.2 fL (36.4-46.3); Red Blood Count 3.07 M/uL (4.70-6.10); White Blood Count 6.67 K/ul (4.8-10.8)
[2024-05-22 06:17] LABS: Bilirubin Direct 0.4 mg/dl (0-0.2); Calcium 8.1 mg/dl (8.6-10.3); Creatinine Clr Calc Pharmacy 56.6 ml/min; Potassium 3.9 mmol/L (3.5-5.1); Total Protein 5.1 gm/dl (6.0-8.3)
[2024-05-22 07:53] LABS: Estimated Average Glucose 128 mg/dl; Hemoglobin A1C 6.1 % (4.5-5.6)
--- NOTE | 2024-05-22 08:44 | Pulmonary Consultation ---
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: (3) Acute hypoxic respiratory failure: (4) Pulmonary embolism: (5) Pleural effusion: Plan CT chest 05/21/2024 personally reviewed: Small to moderate right-sided pleural effusion, small left-sided pleural effusion Compressive atelectasis of bilateral lower lobes Significant ascites No significant mediastinal lymphadenopathy -- Acute hypoxic respiratory failure Likely secondary to compressive atelectasis from pleural effusion as well as large ascites pressing on the thorax Continue with O2 supplementation to keep oxygen saturation around 90-92% -- Pleural effusion IVC filter Small to moderate on the right, small on the left Etiology for pleural effusion is most likely a translocation of ascitic fluid Recommend adequate paracentesis --History of DVT as well as pulmonary emboli Pulmonary emboli appreciated on the left side on CTA 05/21/2024 Because of bleeding not on any anticoagulation S/p IVC filter placement -- Pancreatic CA with ascites Plan: The best course for the patient would be to drain the ascitic fluid as unless the ascitic fluid is present there will always be a pleural effusion because of translocation of the ascitic fluid We already had paracentesis done today with 4 L of fluid removed I discussed with IR, he still has approximately 2 L of peritoneal fluid which I will order to be drained tomorrow IR will also look at the right side and if there is any significant pleural effusion then thoracentesis will also be done tomorrow itself Ultimately I do think if he continues to have significant ascites fluid then palliative approach with Pleurx catheter in the belly which unfortunately is not done here Patient will benefit from incentive spirometry I do recommend palliative care consult to have goals of care in place No indication for bronchoscopy Case was discussed with RN at bedside Please note the above document was generated using voice recognition software. It may contain grammatical, syntax or spelling errors.Any formal questions or concerns about the content, text or information contained within the body of this dictation should be directly addressed to the provider for clarification. History of Present Illness Attending Physician: Isadora Shay MD History of Present Illness 78-year-old male present to the hospital with complaints of worsening shortness of breath Past medical history: Recently diagnosed pancreatic cancer, DVT s/p IVC filter placement Pulmonary consulted for pleural effusion At the time of examination patient was on 1 L nasal cannula, saturating 92-93% He was in respiratory distress. Need to take some break while talking in full sentences Patient's was also in the room Denies any recent fever or chills No dysuria. No diarrhea. Patient is usually constipated. He started to see distention in his belly not too long ago. No nausea or vomiting Social history: Lifetime non-smoker. No exposure to any chemicals or fumes at work No history of lung cancer in the family Allergies Allergy/AdvReac Type Severity Reaction Status Date / Time avocado Allergy Mild SWELLING Verified 05/07/24 20:53 lisinopril AdvReac Intermediate cough Verified 05/07/24 20:53 losartan AdvReac Intermediate cough Verified 05/07/24 20:53 Home Medications Medication Instructions Recorded Confirmed Type celecoxib 200 mg capsule 200 mg PO DAILY 04/21/24 05/07/24 History empagliflozin 25 mg tablet 25 mg PO DAILY 04/21/24 05/07/24 History cholecalciferol (vitamin D3) 25 25 mcg PO DAILY 05/07/24 05/07/24 History mcg (1,000 unit) capsule (Vitamin D3) lactulose 10 gram/15 mL oral 30 ml PO QID 05/07/24 05/07/24 History solution Patient History Medical History (Updated 05/22/24 @ 13:06 by Kaitlin Horta MD, [facility]) Multiple lipomas Arthritis Surgical History History of ankle surgery H/O carpal tunnel repair S/P hip replacement History of ankle joint replacement Social History Smoking Status: Never smoker Second Hand Exposure: No; Do You Dip or Chew Tobacco: No; Hx Alcohol Use: Yes Alcohol type: beer and wine Alcohol Intake Frequency: Monthly or Less Alcohol Intake Frequency Comment: Weekly Hx Substance Use: No Preferred Language: German Communication Ability: Effective Visual Impairment: Limited Hearing Ability: Normal Data Management Manager Required: No Beliefs That Will Affect Care: None marital status: Current Living Situation: Rehab Current Living Situation Comment: was previously living with at their home current occupational status: retired 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 Other Information That Helps Us Care for You: No Feels Safe at Home: Yes Safety Concerns: Feels Safe At This Time Diet: diabetic Assistive Devices: CPAP and Glasses Review of Systems 2 Review of Systems: All systems reviewed & are unremarkable except as noted in HPI & below Physical Exam 2 Physical Exam: Constitutional: No acute distress HEENT: EOMI, PERRLA Respiratory system: Decreased air entry bilaterally, more decreased on the right, no wheeze, no rhonchi, positive crackles bilaterally CVS: S1-S2 positive, no murmurs or gallops Abdomen: Soft, nontender, positive bowel sounds x4, distended Extremities: +2 pulses bilaterally radialis/ dorsalis pedis, no cyanosis, +3 pitting edema bilateral lower extremity Neuro: Awake alert oriented x3 Psych: Normal mood and affect G/U: No Deng Results & Data Results & Data Vital Signs (Past 12 Hours) Vital Signs Temp Pulse Pulse Resp BP Pulse Ox O2 Del Method 05/22/24 07:42 36.7 C 102 H 20 123/85 92 Nasal Cannula 05/22/24 03:48 36.6 C 98 H 20 99/67 L 94 Nasal Cannula 05/22/24 00:12 36.5 C 99 H 20 112/75 93 Nasal Cannula 05/21/24 22:15 101 H O2 Flow Rate 05/22/24 07:42 05/22/24 03:48 2 05/22/24 00:12 2 05/21/24 22:15 Laboratory Results 05/22/24 05:21 05/22/24 05:21 PG Care Time/CCT Total # of Minutes Spent Total Time Spent with Patient: Total time spent is greater than 50% in coordination of care (as documented) at patient's floor/unit and/or counseling patient: Coding Level of Care Code 46992 INT INP/OBS CARE 3/75MIN Diagnoses Deep vein thrombosis, lower right extremity I82.401 Primary pancreatic cancer with metastasis to other site C25.9 Acute hypoxic respiratory failure J96.01 Pulmonary embolism I26.99 Pleural effusion J90
--- NOTE | 2024-05-22 08:47 | Electrocardiogram Report ---
Test Reason : Blood Pressure : */* mmHG Vent. Rate : 101 BPM Atrial Rate : 101 BPM P-R Int : 124 ms QRS Dur : 60 ms QT Int : 308 ms P-R-T Axes : 30 13 2 degrees QTcB Int : 399 ms Sinus tachycardia Low voltage QRS Abnormal ECG Confirmed by Estuardo Mariano ([id number]) on 05/22/2024 8:47:22 AM Referred By: Jovita Rubiorose Confirmed By: Estuardo Mariano
[2024-05-22] MEDS: DOXYCYCLINE HYCLATE 100 MG CAP PO SCH (09:34)
[2024-05-22] MEDS: PANTOprazole 40 MG TAB PO SCH (09:34)
--- NOTE | 2024-05-22 11:38 | Gastrointestinal Consultation ---
<Statement entered by Peter Barillas MD - 05/22/24 16:48> I have reviewed the history, physical exam, lab and imaging findings as dictated by the mid-level provider, made any necessary modifications, and agree with the stated assessment and recommendations. A total of 45 minutes was spent in the review, direct observation, decision making and discussion of this case with the patient/family and other providers. Peter Barillas MD Date of Consultation May 22, 2024 Assessment & Plan (1) Primary pancreatic cancer with metastasis to other site: (2) Elevated LFTs: Plan LFT elevation nonspecific, but not obstructive. Mild incr bilirubin ? liver vs other (nutrition, hemolysis, other) No GI intervention available/appropriate at present. Patient was previously deemed a non-surgical candidate. Agree with supportive treatment of malignant ascites. Agree with ongoing discussion with palliative care. Discussed adequate protein/micronutrient nutrition importance/attempts Continue to monitor LFTs. History of Present Illness Reason for Consultation: "worsening transaminitis" Attending Physician: Isadora Shay MD History of Present Illness Patient is a 78 yo male with metastatic pancreatic adenocarcinoma. Patient initially admitted back in April with a pancreatic mass. This was subsequently diagnosed with pancreatic adenocarcinoma. He then returned to [facility] diagnosed with large bowel obstruction and a lower extremity DVT. He was started on anticoagulation and transferred to [facility]. At [facility] he had large-volume blood loss gluteal hemorrhage that required blood transfusions. IVC filter was placed. And a colonic stent was placed. He was then subsequently transferred to [facility] for evaluation of his pancreatic mass. There are determined to be a nonsurgical candidate while there. His ongoing plan of care is seeking cancer treatment in [place] at [facility]. Upon presentation here, he noted worsening ascites and is apparently awaiting a paracentesis. GI has been consulted for worsening transaminitis. T bili 2.0. Was previous 1.5 range. D bili currently 0.4. AST 12. ALT 9. CT Imaging: IMPRESSION: 1. Large right pleural effusion, appearing in the interval. 2. Markedly increased ascites and anasarca, when compared to 05/07/2024. 3. Bowel stent present in the left upper quadrant, appearing in the interval with solid and liquid material in the lumen. Correlate clinically. 4. Known pancreatic mass. Allergies Allergy/AdvReac Type Severity Reaction Status Date / Time avocado Allergy Mild SWELLING Verified 05/07/24 20:53 lisinopril AdvReac Intermediate cough Verified 05/07/24 20:53 losartan AdvReac Intermediate cough Verified 05/07/24 20:53 Home Medications Medication Instructions Recorded Confirmed Type celecoxib 200 mg capsule 200 mg PO DAILY 04/21/24 05/22/24 History empagliflozin 25 mg tablet 25 mg PO DAILY 04/21/24 05/22/24 History lactulose 10 gram/15 mL oral 30 ml PO BID 05/07/24 05/22/24 History solution Patient History Medical History (Updated 05/22/24 @ 15:22 by SABRINA Cerna) Multiple lipomas Arthritis Surgical History History of ankle surgery H/O carpal tunnel repair S/P hip replacement History of ankle joint replacement Social History Smoking Status: Never smoker Second Hand Exposure: No; Do You Dip or Chew Tobacco: No; Hx Alcohol Use: Yes Alcohol type: beer and wine Alcohol Intake Frequency: Monthly or Less Alcohol Intake Frequency Comment: Weekly Hx Substance Use: No Preferred Language: Guyanese Communication Ability: Effective Visual Impairment: Limited Hearing Ability: Normal Serology Teacher Required: No Beliefs That Will Affect Care: None marital status: Current Living Situation: Rehab Current Living Situation Comment: was previously living with at their home current occupational status: retired 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 Other Information That Helps Us Care for You: No Feels Safe at Home: Yes Safety Concerns: Feels Safe At This Time Diet: diabetic Assistive Devices: CPAP Results & Data Vital Signs (Past 12 Hours) Vital Signs Temp Pulse Resp BP Pulse Ox O2 Del Method O2 Flow Rate 05/22/24 11:32 36.9 C 101 H 20 96/64 L 98 Nasal Cannula 05/22/24 11:30 36.9 C 101 H 20 96/64 L 98 Nasal Cannula 1 05/22/24 07:42 36.7 C 102 H 20 123/85 92 Nasal Cannula 05/22/24 03:48 36.6 C 98 H 20 99/67 L 94 Nasal Cannula 2 05/22/24 00:12 36.5 C 99 H 20 112/75 93 Nasal Cannula 2 PG Care Time/CCT Total # of Minutes Spent Total Time Spent with Patient: Total time spent is greater than 50% in coordination of care (as documented) at patient's floor/unit and/or counseling patient: Coding Level of Care Code 77512 INT INP/OBS CARE 75MIN Diagnoses Primary pancreatic cancer with metastasis to other site C25.9 Elevated LFTs R79.89
[2024-05-22 12:57] LABS: Appearance Peritoneal Fluid Cloudy; Color Peritoneal Fluid Yellow; RBC Peritoneal Fluid Auto 7000 /uL; WBC Peritoneal Fluid Auto 436 /ul (0-300)
--- NOTE | 2024-05-22 13:06 | Hospitalist Progress Note ---
Date of Service May 22, 2024 Assessment & Plan (1) Acute hypoxic respiratory failure: (2) Primary pancreatic cancer with metastasis to other site: (3) Malignant ascites: (4) Malignant pleural effusion: (5) Pulmonary embolism: (6) Diabetic peripheral neuropathy associated with type 2 diabetes mellitus: (7) Deep vein thrombosis, lower right extremity: Plan 78-year-old male with PMHx significant for pancreatic cancer, Hx of DVT, dyslipidemia, gout, DM type II, EDWARD, HTN, arthritis who presents with increasing SOB. Pt was hypoxic and volume overloaded with noted progression of his pancreatic mass and progressing lung findings as well. Pt was transferred to [facility] from [facility] after recent discharges from [facility] and [facility] He expressed wishes to go home with hospice after initially on admission being uncertain. Palliative Care was consulted, and pt was transitioned to comfort measures only on 05/22/24 with goal of getting him home with hospice services. He was being treated for the following: Acute hypoxic respiratory Failure Pt with increased oxygen requirement Likely in setting of volume overload with pleural effusions, ascites, anasarca and PEs. Also has a possible malignant lung lesion Oxygen supplementation as needed Pulmonary Emboli Pleural Effusion Possible metastasis to lung Pt with hypercoagulable state in setting of cancer hx of recent DVT and while on anticoagulation had hemorrhagic shock due to gluteal bleed at [facility] with subsequent placement of an IVC filter CTA chest now noting pulmonary emboli, pleural effusion and right sided consolidation Risk of anticoagulation> benefits Was on empiric abx, Zosyn and doxycycline Pulmonology was consulted, appreciate recs Ascites S/p paracentesis on 05/22 Follow Cx GI on board Appreciate recs Pancreatic Cancer Elevated liver enzymes Bilirubin elevated Pt with known pancreatic cancer, but progressing GI consulted, appreciate recs Palliative Care consulted, appreciate recs Chronic Anemia Likely in setting of chronic disease Follow H/H Elevated troponin Likely elevated in setting of demand EKG with sinus tachycardia Downtrended, doubt ACS DMII Insulin sliding scale Continue to monitor glucose levels Diet:DMII DVT prophylaxis: Was on lovenox SQ CODE STATUS: DNR/DNI Dispo: Home with hospice Admission and Anticipated Discharge Date Admission Date: May 21, 2024 Subjective pt was seen with at bedside after his paracentesis States that he just spoke with palliative care and would like to go home with hospice services Review of Systems Review of Systems: All systems reviewed & are unremarkable except as noted in Subjective Physical Exam Physical Exam: General: Alert, oriented. No acute distress HEENT: NC/AT CV: RRR Resp: no increased effort of breathing Abdomen: Soft, nontender at the time of exam, no sig distention Extremities:+++ edema in lower extremities bilaterally. Results & Data Results & Data Vital Signs (Past 12 Hours) Vital Signs Temp Pulse Resp BP Pulse Ox O2 Del Method O2 Flow Rate 05/22/24 12:34 36.6 C 101 H 20 110/73 98 Nasal Cannula 05/22/24 11:32 36.9 C 101 H 20 96/64 L 98 Nasal Cannula 05/22/24 11:30 36.9 C 101 H 20 96/64 L 98 Nasal Cannula 1 05/22/24 07:42 36.7 C 102 H 20 123/85 92 Nasal Cannula 05/22/24 03:48 36.6 C 98 H 20 99/67 L 94 Nasal Cannula 2 Diagnostic Findings Chest X-Ray 05/21/24 11:42 XR chest 1V portable CLINICAL HISTORY: Dyspnea COMPARISON STUDY: 05/07/2024 FINDINGS: Inspiration is very shallow which limits the exam. Heart size and pulmonary vasculature are normal. There is mild stranding in the lung bases. No other consolidation or pleural effusion. No pneumothorax. IMPRESSION: Shallow inspiration with likely lung base atelectasis. Consider follow-up 2 view chest with deep inspiration. ACT 112: Negative or not required by law. Electronically signed by: Lalo Leon M.D. 05/21/2024 12:07 PM Chest CTA 05/21/24 13:35 CT angio chest PE protocol CT DOSE: 658.27 mGy.cm HISTORY: PE. TECHNIQUE: Multiple CTA images of the chest were obtained after the intravenous administration of 120 ml Optiray. Coronal and sagittal MIPS were obtained from the axial data set and were submitted for review. All measurements were obtained according to NASCET criteria. A dose lowering technique was utilized adhering to the principles of ALARA. COMPARISON STUDY: 04/22/2024 FINDINGS: There are small bilateral pleural effusions with complete consolidation of the right lower lobe and moderate dependent consolidation posterior left lower lobe. There is a progressive 1.5 cm spiculated density posterior inferior right upper lobe series 3 image 72. No pneumothorax. No enlarged adenopathy. No pericardial effusion. No thoracic aortic dissection or aneurysm. There are a few tiny nonocclusive pulmonary emboli in the subsegmental right upper and left lower lobe pulmonary arterial branches. RV to LV ratio is less than 1. There is prominent ascites at the visualized upper abdomen. There are moderate thoracic spine degenerative changes. IMPRESSION: 1. Small nonocclusive pulmonary emboli with minimal clot burden and no evidence of right heart strain. 2. Interval small bilateral pleural effusions. Interval complete consolidation of the right lower lobe and partial consolidation of the left lower lobe, pneumonia versus atelectasis. 3. Increased size of the spiculated nodular density posterior inferior right upper lobe. Malignancy is not excluded. 4. Large amount of ascites in the visualized upper abdomen. ACT 112: Positive. There are findings on this exam that require communication between the performing entity and the patient following Patient Test Result I nformation Act ([place] Act 112) guidelines. The above report was generated using voice recognition software. It may contain grammatical, syntax or spelling errors. Electronically signed by: Lalo Leon M.D. 05/21/2024 2:09 PM Abdomen/Pelvis CT 05/21/24 15:47 EXAMINATION: Abdomen and pelvis CT without CLINICAL HISTORY: Pancreatic cancer PRIORS: 05/07/2024 TECHNIQUE: Contiguous axial images were obtained through the abdomen and pelvis without the use of intravenous contrast. Sagittal and coronal reformations are supplied. FINDINGS: Examination is limited without the use of intravenous contrast. A large right pleural effusion is present, appearing in the interval. An extremely large volume of ascites is present, markedly progressed in the interval. A bowel stent is present in the left upper quadrant, appearing in the interval. An IVC filter is present. Kidneys are in excretory phase suggesting prior intravenous contrast administration. No extraluminal gas is identified. Anasarca is present, appearing in the interval. Within the limitations of the study, the liver is unchanged. The probable pancreatic mass is identified projecting off of the body/tail, image 39, series 2 measuring at least 5.0 x 3.8 cm. The spleen, stomach and kidneys appear unremarkable. No dilated loops of small bowel. Large amount of formed stool present in the descending and sigmoid colon. A left total hip arthroplasty creates significant beam hardening artifact. In bone windows moderate osseous demineralization with scoliosis and degenerative change of the spine noted. Excreted intravenous contrast present in the urinary bladder. Large amount of free fluid present in the abdomen. IMPRESSION: 1. Large right pleural effusion, appearing in the interval. 2. Markedly increased ascites and anasarca, when compared to 05/07/2024. 3. Bowel stent present in the left upper quadrant, appearing in the interval with solid and liquid material in the lumen. Correlate clinically. 4. Known pancreatic mass. ACT 112: Positive. There are findings on this examination that require communication between the performing entity and the patient following Patient Test Result Information Act ([place] ACT 112) guidelines. Electronically signed by Nai David 05-21-2024 4:30 PM Paracentesis Ultrasound 05/22/24 15:47 ULTRASOUND-GUIDED PARACENTESIS CLINICAL HISTORY: Ascites PROCEDURE: Procedure and risks were explained. Informed consent was obtained. A final timeout was completed. The abdomen was prepped and draped in sterile fashion. 1% lidocaine was utilized for skin anesthesia. Utilizing ultrasound guidance, a 5 [place]i safety centesis catheter was advanced into the left lower quadrant pocket of ascites. Ultrasound images were obtained. A total of 4 L of ascites fluid was removed with 1 L sent to the lab for analysis. The catheter was removed and Band-Aid applied. The patient tolerated the procedure well. Vital signs will be monitored postprocedure. IMPRESSION: Ultrasound-guided paracentesis as above. Performed, dictated, and signed by Real France PA-C; to be co-signed by Dr. Lalo Leon.
[2024-05-22 13:10] LABS: Albumin Peritoneal Fluid < 1.5 gm/dl; Glucose Peritoneal Fluid 245 mg/dl; Total Protein Peritoneal Fluid < 3.0 gm/dl
[2024-05-22 14:26] LABS: Lymphocytes, Fluid 45 %; Mono,Macrophage,Mesothelial 15 %; Neutrophils, Fluid 17 %; Other Cells Peritoneal Fluid 23 %
--- NOTE | 2024-05-22 15:10 | Ultrasound Report ---
ULTRASOUND-GUIDED PARACENTESIS CLINICAL HISTORY: Ascites PROCEDURE: Procedure and risks were explained. Informed consent was obtained. A final timeout was com pleted. The abdomen was prepped and draped in sterile fashion. 1% lidocaine was utilized for skin ane sthesia. Utilizing ultrasound guidance, a 5 Korean safety centesis catheter was advanced into the left lower q uadrant pocket of ascites. Ultrasound images were obtained. A total of 4 L of ascites fluid was remov ed with 1 L sent to the lab for analysis. The catheter was removed and Band-Aid applied. The patient tolerated the procedure well. Vital signs will be monitored postprocedure. IMPRESSION: Ultrasound-guided paracentesis as above. Performed, dictated, and signed by Real France PA-C; to be co-signed by Dr. Lalo Leon. Electronically signed by: Lalo Leon M.D. 05/22/2024 4:05 PM
[2024-05-22] MEDS ORDERED: LORazepam 2 MG/1 ML VIAL IV PRN (15:12)
--- NOTE | 2024-05-22 15:24 | Palliative Care Consultation ---
Date of Consultation May 22, 2024 Assessment & Plan (1) Palliative care by specialist: Introduced Palliative Medicine and explained our role in advanced care planning, symptom management and navigation through the progression of life limiting disease. Patient and/or family were receptive to palliative services for goals of care discussions. Reviewed we are different from hospice, a home health nurse visiting service. (2) Counseling regarding advanced directives and goals of care: Discussed GOC with pt for 40 minutes. Pt shared that he understands that "this cancer is going to kill me" and is not pursuing any further treatments. He questioned going home with hospice and PT to improve his strength vs palliative care. Discussed Palliative Medicine as a service to assist in advanced care planning, symptom management and navigation through the progression of life limiting disease while life prolonging therapies are still being pursued vs. hospice, a home health nurse visiting service.with the goal of assuring comfort and dignity while allowing for a natural . Discussed hospice benefit: an interdisciplinary program offered by nurses, nurses aides, social workers, chaplains and a medical esthetician for patients with a terminal condition and a life expectancy of less than 6 months. This is covered by Medicare at 100%/no out of pocket expense to patient and all meds/supplies needed by patient for the reason they are on hospice are paid for/covered by hospice. The goal is assure quality of life of the patient in their home setting (home, care home, inpatient hospice setting) by providing symptoms management, psychosocial and spiritual support. However, they cannot offer 24 hours care and if the family is unable to provide that care, they will have to consider personal care with out of pocket cost vs. care home placement. We discussed the goals of hospice as a patient service and the goals of care; we discussed EOL trajectories and transitions dianne the emotional impact of realizing mortality as a concrete reality from prior abstract considerations. Pt was reassured that no matter where they are along this trajectory, they are not alone - their medical team will remain by their side through their journey. Discussed the pros/cons of accepting help when especially weakened and distressed by pain-which would also help provide relief/decrease caregiver burden/strain. Pt states that he wishes mostly to be at home when he dies, he is hopeful for more quality time at home but does not want any further life prolonging therapies nor hospitalizations at this time. 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 CM had shared a list of hospice agencies and pt/family will be deciding on their choice of hospice agency this evening. (4) Need for comfort care: Plan for paracentesis on 05/23 prior to discharge. EOL Symptom manamgement: Pain/dyspnea/tachypnea morphine 2mg IVP PRN [id number] Consider titratable morphine drip if pt requires >3 PRN doses in under two consecutive hours. Nausea/vomitting zofran 4mg IVP q4h PRN Agitation ativan 0.5mg IVP q4h PRN Hyperactive delirium haldol 5mg IVP q6h PRN Secretions - if repositioning not effective robinul 0.4mg IV q4h PRN atropine SL 3 drops Q1h PRN Nursing care: Discontinue all medications not directed towards comfort. Detether pt from IV tubing, monitor cables, and check vitals once per shift. Please c ontinue HFNC and titrate down as able for patient comfort. Use medications above PRN for dyspnea/tachypnea and do not increase oxygen once titrated down. Assess q1h for pain/dyspnea and treat accordingly. Plan [employer] SUPER[employer], planning for DC home with hospice. to determine which hospice agency tonight. Continue with scheduled paracentesis on 05/23/24 to assure ongoing comfort. Pt declines indwelling pleurX catheter at this time. History of Present Illness Reason for Consultation: goals of care Requesting Physician: Isadora Shay MD Attending Physician: Isadora Shay MD History of Present Illness Patient is a 78 gentleman has had a complicated medical history 6 weeks. Patient initially admitted back in April with a pancreatic mass. This was subsequently diagnosed with pancreatic adenocarcinoma. He then returned to [facility] diagnosed with large bowel obstruction and a lower extremity DVT. He was started on anticoagulation and transferred to [facility]. At [facility] he had large-volume blood loss gluteal hemorrhage requiring blood transfusions. IVC filter and colonic stent were placed. He was transferred to [facility] for evaluation of his pancreatic mass. He was determined to be a nonsurgical candidate while there. From [facility] he was discharged to [facility] for rehabilitation with goal to get strong enough so he could undergo some palliative chemotherapy. On 05/21 he was SOB and CXray showed a effusion so he was sent to ED. CT of the chest showed small pleural effusions and almost complete consolidation in the right lower lobe. Also started a large amount of ascites in the upper portion of the abdomen. Allergies Allergy/AdvReac Type Severity Reaction Status Date / Time avocado Allergy Mild SWELLING Verified 05/07/24 20:53 lisinopril AdvReac Intermediate cough Verified 05/07/24 20:53 losartan AdvReac Intermediate cough Verified 05/07/24 20:53 Home Medications Medication Instructions Recorded Confirmed Type celecoxib 200 mg capsule 200 mg PO DAILY 04/21/24 05/22/24 History empagliflozin 25 mg tablet 25 mg PO DAILY 04/21/24 05/22/24 History lactulose 10 gram/15 mL oral 30 ml PO BID 05/07/24 05/22/24 History solution Patient History Medical History (Updated 05/22/24 @ 15:22 by SABRINA Cerna) Multiple lipomas Arthritis Surgical History History of ankle surgery H/O carpal tunnel repair S/P hip replacement History of ankle joint replacement Social History Smoking Status: Never smoker Second Hand Exposure: No; Do You Dip or Chew Tobacco: No; Hx Alcohol Use: Yes Alcohol type: beer and wine Alcohol Intake Frequency: Monthly or Less Alcohol Intake Frequency Comment: Weekly Hx Substance Use: No Preferred Language: Sudanese Communication Ability: Effective Visual Impairment: Limited Hearing Ability: Normal Blood Bank Custodian Required: No Beliefs That Will Affect Care: None marital status: Current Living Situation: Rehab Current Living Situation Comment: was previously living with at their home current occupational status: retired 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 Feels Safe at Home: Yes Diet: diabetic Assistive Devices: CPAP Review of Systems Review of Systems: All systems reviewed & are unremarkable except as noted in HPI & below Physical Exam Constitutional: WD/WN, vitals as above Eyes: PERRL, conjunctivae normal, anicteric sclerae ENMT: external ear and nose normal, oropharynx normal Neck: trachea midline, no thyromegaly Respiratory: normal respiratory effort, lungs clear to auscultation Cardiovascular: RRR, no murmur, no edema Gastrointestinal (Abdomen): normal bowel sounds, soft, nontender, no hepatosplenomegaly Musculoskeletal: Extremities:+++ edema in lower extremities bilaterally. JOYNER Neurologic: PERRL, EOMI, accommodation nl, no face palsy, no dysarthria Psychiatric: Orientation: alert, oriented x 3 and cooperative Results & Data Vital Signs (Past 12 Hours) Vital Signs Temp Pulse Resp BP Pulse Ox O2 Del Method O2 Flow Rate 05/22/24 13:11 36.9 C 104 H 20 108/74 96 Nasal Cannula 1 05/22/24 12:34 36.6 C 101 H 20 110/73 98 Nasal Cannula 05/22/24 11:32 36.9 C 101 H 20 96/64 L 98 Nasal Cannula 05/22/24 11:30 36.9 C 101 H 20 96/64 L 98 Nasal Cannula 1 05/22/24 07:42 36.7 C 102 H 20 123/85 92 Nasal Cannula 05/22/24 03:48 36.6 C 98 H 20 99/67 L 94 Nasal Cannula 2 Laboratory Results Abnormal lab results 05/21/24 05/21/24 05/21/24 Range/Units 17:55 20:14 Unknown RBC (4.70-6.10) M/uL Hgb (14.0-18.0) g/dl Hct (42.0-52.0) % RDW Std Deviation (36.4-46.3) fL RDW Coeff of Олег (11.5-14.5) % BUN (6-23) mg/dl BUN/Creatinine Ratio (10-20) Glucose (70-99(Fasting)) mg/dl POC Glucose 197 H 254 H (70-99) mg/dl Hemoglobin A1c (4.5-5.6) % Calcium (8.6-10.3) mg/dl Total Bilirubin (0.2-1.0) mg/dl Direct Bilirubin (0-0.2) mg/dl AST (13-39) U/L Total Protein (6.0-8.3) gm/dl Albumin (3.4-5.0) gm/dl Peritoneal WBC (Auto) (0-300) /ul Nasal Screen MRSA (PCR) Positive A (Negative) 05/22/24 05/22/24 05/22/24 Range/Units 05:21 08:01 12:31 RBC 3.07 L (4.70-6.10) M/uL Hgb 10.0 L (14.0-18.0) g/dl Hct 30.2 L (42.0-52.0) % RDW Std Deviation 71.2 H (36.4-46.3) fL RDW Coeff of Олег 20.5 H (11.5-14.5) % BUN 30 H (6-23) mg/dl BUN/Creatinine Ratio 27.0 H (10-20) Glucose 227 H (70-99(Fasting)) mg/dl POC Glucose 243 H 190 H (70-99) mg/dl Hemoglobin A1c 6.1 H (4.5-5.6) % Calcium 8.1 L (8.6-10.3) mg/dl Total Bilirubin 2.0 H (0.2-1.0) mg/dl Direct Bilirubin 0.4 H (0-0.2) mg/dl AST 12 L (13-39) U/L Total Protein 5.1 L (6.0-8.3) gm/dl Albumin 3.0 L (3.4-5.0) gm/dl Peritoneal WBC (Auto) (0-300) /ul Nasal Screen MRSA (PCR) (Negative) 05/22/24 Range/Units Unknown RBC (4.70-6.10) M/uL Hgb (14.0-18.0) g/dl Hct (42.0-52.0) % RDW Std Deviation (36.4-46.3) fL RDW Coeff of Олег (11.5-14.5) % BUN (6-23) mg/dl BUN/Creatinine Ratio (10-20) Glucose (70-99(Fasting)) mg/dl POC Glucose (70-99) mg/dl Hemoglobin A1c (4.5-5.6) % Calcium (8.6-10.3) mg/dl Total Bilirubin (0.2-1.0) mg/dl Direct Bilirubin (0-0.2) mg/dl AST (13-39) U/L Total Protein (6.0-8.3) gm/dl Albumin (3.4-5.0) gm/dl Peritoneal WBC (Auto) 436 H (0-300) /ul Nasal Screen MRSA (PCR) (Negative) Diagnostic Findings Chest X-Ray 05/21/24 11:42 XR chest 1V portable CLINICAL HISTORY: Dyspnea COMPARISON STUDY: 05/07/2024 FINDINGS: Inspiration is very shallow which limits the exam. Heart size and pulmonary vasculature are normal. There is mild stranding in the lung bases. No other consolidation or pleural effusion. No pneumothorax. IMPRESSION: Shallow inspiration with likely lung base atelectasis. Consider follow-up 2 view chest with deep inspiration. ACT 112: Negative or not required by law. Electronically signed by: Lalo Leon M.D. 05/21/2024 12:07 PM Chest CTA 05/21/24 13:35 CT angio chest PE protocol CT DOSE: 658.27 mGy.cm HISTORY: PE. TECHNIQUE: Multiple CTA images of the chest were obtained after the intravenous administration of 120 ml Optiray. Coronal and sagittal MIPS were obtained from the axial data set and were submitted for review. All measurements were obtained according to NASCET criteria. A dose lowering technique was utilized adhering to the principles of ALARA. COMPARISON STUDY: 04/22/2024 FINDINGS: There are small bilateral pleural effusions with complete consolidation of the right lower lobe and moderate dependent consolidation posterior left lower lobe. There is a progressive 1.5 cm spiculated density posterior inferior right upper lobe series 3 image 72. No pneumothorax. No enlarged adenopathy. No pericardial effusion. No thoracic aortic dissection or aneurysm. There are a few tiny nonocclusive pulmonary emboli in the subsegmental right upper and left lower lobe pulmonary arterial branches. RV to LV ratio is less than 1. There is prominent ascites at the visualized upper abdomen. There are moderate thoracic spine degenerative changes. IMPRESSION: 1. Small nonocclusive pulmonary emboli with minimal clot burden and no evidence of right heart strain. 2. Interval small bilateral pleural effusions. Interval complete consolidation of the right lower lobe and partial consolidation of the left lower lobe, pneumonia versus atelectasis. 3. Increased size of the spiculated nodular density posterior inferior right upper lobe. Malignancy is not excluded. 4. Large amount of ascites in the visualized upper abdomen. ACT 112: Positive. There are findings on this exam that require communication between the performing entity and the patient following Patient Test Result Information Act ([place] Act 112) guidelines. The above report was generated using voice recognition software. It may contain grammatical, syntax or spelling errors. Electronically signed by: Lalo Leon M.D. 05/21/2024 2:09 PM Abdomen/Pelvis CT 05/21/24 15:47 EXAMINATION: Abdomen and pelvis CT without CLINICAL HISTORY: Pancreatic cancer PRIORS: 05/07/2024 TECHNIQUE: Contiguous axial images were obtained through the abdomen and pelvis without the use of intravenous contrast. Sagittal and coronal reformations are supplied. FINDINGS: Examination is limited without the use of intravenous contrast. A large right pleural effusion is present, appearing in the interval. An extremely large volume of ascites is present, markedly progressed in the interval. A bowel stent is present in the left upper quadrant, appearing in the interval. An IVC filter is present. Kidneys are in excretory phase suggesting prior intravenous contrast administration. No extraluminal gas is identified. Anasarca is present, appearing in the interval. Within the limitations of the study, the liver is unchanged. The probable pancreatic mass is identified projecting off of the body/tail, image 39, series 2 measuring at least 5.0 x 3.8 cm. The spleen, stomach and kidneys appear unremarkable. No dilated loops of small bowel. Large amount of formed stool present in the descending and sigmoid colon. A left total hip arthroplasty creates significant beam hardening artifact. In bone windows moderate osseous demineralization with scoliosis and degenerative change of the spine noted. Excreted intravenous contrast present in the urinary bladder. Large amount of free fluid present in the abdomen. IMPRESSION: 1. Large right pleural effusion, appearing in the interval. 2. Markedly increased ascites and anasarca, when compared to 05/07/2024. 3. Bowel stent present in the left upper quadrant, appearing in the interval with solid and liquid material in the lumen. Correlate clinically. 4. Known pancreatic mass. ACT 112: Positive. There are findings on this examination that require communication between the performing entity and the patient following Patient Test Result Information Act ([place] ACT 112) guidelines. Electronically signed by Nai David 05-21-2024 4:30 PM Paracentesis Ultrasound 05/22/24 15:47 ULTRASOUND-GUIDED PARACENTESIS CLINICAL HISTORY: Ascites PROCEDURE: Procedure and risks were explained. Informed consent was obtained. A final timeout was completed. The abdomen was prepped and draped in sterile fashion. 1% lidocaine was utilized for skin anesthesia. Utilizing ultrasound guidance, a 5 [place] Citizen safety centesis catheter was advanced into the left lower quadrant pocket of ascites. Ultrasound images were obtained. A total of 4 L of ascites fluid was removed with 1 L sent to the lab for analysis. The catheter was removed and Band-Aid applied. The patient tolerated the procedure well. Vital signs will be monitored postprocedure. IMPRESSION: Ultrasound-guided paracentesis as above. Performed, dictated, and signed by Real France PA-C; to be co-signed by Dr. Lalo Leon. Medications Administered Current Inpatient Medications Acetaminophen (Acetaminophen 325 Mg Tab) 650 mg PO Q4H PRN PRN Reason: Pain or Fever Stop: 06/20/24 18:18 Al Hydrox/Mg Hydrox/Simethicone (Aluminum/Magnesium Susp 30 Ml Udc) 15 ml PO Q4H PRN PRN Reason: Dyspepsia Stop: 06/20/24 18:18 Doxycycline Hyclate (Doxycycline Hyclate 100 Mg Cap) 100 mg PO BID TALISHA Stop: 05/27/24 08:59 Last Admin: 05/22/24 09:34 Dose: 100 mg Lorazepam (Lorazepam 2 Mg/1 Ml Vial) 0.5 mg IV Q4H PRN PRN Reason: Anxiety/Agitation Stop: 06/21/24 15:11 Magnesium Hydroxide (Magnesium Hydroxide Susp 30 Ml Udc) 30 ml PO Q12H PRN PRN Reason: Constipation Stop: 06/20/24 18:18 Morphine Sulfate (Morphine Sulfate 2 Mg/Ml Carp) 2 mg IV Q2H PRN PRN Reason: Pain/sob/dyspnea/ Stop: 06/04/24 18:18 Ondansetron HCl (Ondansetron Inj 2 Mg/Ml 2 Ml Vial) 4 mg IV Q6H PRN PRN Reason: Nausea Stop: 06/20/24 18:18 Pantoprazole Sodium (Pantoprazole 40 Mg Tab) 40 mg PO DAILY TALISHA Stop: 06/21/24 08:59 Last Admin: 05/22/24 09:34 Dose: 40 mg Tramadol HCl (Tramadol Hcl 50 Mg Tablet) 50 mg PO Q4H PRN PRN Reason: Pain Stop: 06/21/24 12:46 PG Care Time/CCT Total # of Minutes Spent Total Time Spent with Patient: Total time spent is greater than 50% in coordination of care (as documented) at patient's floor/unit and/or counseling patient: Advanced Care Planning 62818 Advanced Care Planning 30 [place] [address] IN/OBS CONSULT LVL 3,45M Patient Type New History Expanded Problem Focused Exam Expanded Problem Focused Medical Decision Making Low Complexity Diagnoses Palliative care by specialist Z51.5 Counseling regarding advanced directives and goals of care Z71.89 Comfort measures only status Z51.5 Need for comfort care Additional Codes Advanced Care Planning - 93911 Advanced Care Planning 30 Min: 40192 Advanced Care Planning 30 Min ([id number])
[2024-05-22] MEDS ORDERED: GLYCOPYRROLATE 0.2 MG/ML VIAL IV PRN (15:43)
[2024-05-22] MEDS ORDERED: MoRPHine SULFATE 2 MG/ML CARP IV PRN (15:46)
[2024-05-22] MEDS: traMADol HCL 50 MG TABLET PO PRN (17:12)
[2024-05-22 19:06] VITALS: RESP 16
[2024-05-22] MEDS: ACETAMINOPHEN 325 MG TAB PO PRN (21:36)
--- NOTE | 2024-05-23 10:37 | Hospitalist Progress Note ---
Date of Service May 23, 2024 Assessment & Plan (1) Acute hypoxic respiratory failure: (2) Primary pancreatic cancer with metastasis to other site: (3) Malignant ascites: (4) Malignant pleural effusion: (5) Pulmonary embolism: (6) Diabetic peripheral neuropathy associated with type 2 diabetes mellitus: (7) Deep vein thrombosis, lower right extremity: Plan 78-year-old male with PMHx significant for pancreatic cancer, Hx of DVT, dyslipidemia, gout, DM type II, EDWARD, HTN, arthritis who presents with increasing SOB. Pt was hypoxic and volume overloaded with noted progression of his pancreatic mass and progressing lung findings as well. Pt was transferred to [facility] from [facility] after recent discharges from [facility] and [facility]. He expressed wishes to go home with hospice after initially on admission being uncertain. Palliative Care was consulted, and pt was transitioned to comfort measures only on 05/22/24 with goal of getting him home with hospice services. Anticipate discharge in the AM. He was being treated for the following: Acute hypoxic respiratory Failure Pt with increased oxygen requirement Likely in setting of volume overload with pleural effusions, ascites, anasarca and PEs. Also has a possible malignant lung lesion Oxygen supplementation as needed Pulmonary Emboli Pleural Effusion Possible metastasis to lung Pt with hypercoagulable state in setting of cancer hx of recent DVT and while on anticoagulation had hemorrhagic shock due to gluteal bleed at [facility] with subsequent placement of an IVC filter CTA chest now noting pulmonary emboli, pleural effusion and right sided consolidation Risk of anticoagulation> benefits Was on empiric abx, Zosyn and doxycycline Pulmonology was consulted, appreciate recs Ascites S/p paracentesis on 05/22 Follow Cx GI on board Appreciate recs Pancreatic Cancer Elevated liver enzymes Bilirubin elevated Pt with known pancreatic cancer, but progressing GI consulted, appreciate recs Palliative Care consulted, appreciate recs Chronic Anemia Likely in setting of chronic disease Follow H/H Elevated troponin Likely elevated in setting of demand EKG with sinus tachycardia Downtrended, doubt ACS DMII Insulin sliding scale Continue to monitor glucose levels Diet:DMII DVT prophylaxis: Was on lovenox SQ CODE STATUS: DNR/DNI Dispo: Home with hospice Admission and Anticipated Discharge Date Admission Date: May 21, 2024 Subjective pt seen laying in bed Anxious for discharge home Review of Systems Review of Systems: All systems reviewed & are unremarkable except as noted in Subjective Physical Exam Physical Exam: General: Alert, oriented. No acute distress HEENT: NC/AT CV: RRR Resp: no increased effort of breathing Abdomen: Soft, nontender at the time of exam, no sig distention Extremities:+++ edema in lower extremities bilaterally. Results & Data Results & Data Vital Signs (Past 12 Hours) Vital Signs Temp Pulse Resp BP Pulse Ox O2 Del Method O2 Flow Rate 05/22/24 23:20 36.8 C 103 H 16 108/68 94 Nasal Cannula 2
[2024-05-23] MEDS: LIDOCAINE 5% 1 PATCH TD STA (11:15)
--- NOTE | 2024-05-23 12:55 | Ultrasound Report ---
ULTRASOUND-GUIDED PARACENTESIS CLINICAL HISTORY: Ascites PROCEDURE: Procedure and risks were explained. Informed consent was obtained. A final timeout was com pleted. The abdomen was prepped and draped in sterile fashion. 1% lidocaine was utilized for skin ane sthesia. Utilizing ultrasound guidance, a 5 Pashto safety centesis catheter was advanced into the left lower q uadrant pocket of ascites. Ultrasound images were obtained. A total of 4 L of ascites fluid was remov ed and discarded. The catheter was removed and Band-Aid applied. The patient tolerated the procedure well. Vital signs will be monitored postprocedure. IMPRESSION: Ultrasound-guided paracentesis as above. Performed, dictated, and signed by Real France PA-C; to be co-signed by Dr. Lalo Leon. Electronically signed by: Lalo Leon M.D. 05/23/2024 4:33 PM
--- NOTE | 2024-05-23 17:11 | Pulmonology Progress Note ---
Date of Service May 23, 2024 Assessment & Plan (1) Deep vein thrombosis, lower right extremity: (2) Primary pancreatic cancer with metastasis to other site: (3) Acute hypoxic respiratory failure: (4) Pulmonary embolism: (5) Pleural effusion: Plan CT chest 05/21/2024 personally reviewed: Small to moderate right-sided pleural effusion, small left-sided pleural effusion Compressive atelectasis of bilateral lower lobes Significant ascites No significant mediastinal lymphadenopathy -- Acute hypoxic respiratory failure Likely secondary to compressive atelectasis from pleural effusion as well as large ascites pressing on the thorax Continue with O2 supplementation to keep oxygen saturation around 90-92% -- Pleural effusion IVC filter Small to moderate on the right, small on the left Etiology for pleural effusion is most likely a translocation of ascitic fluid Recommend adequate paracentesis --History of DVT as well as pulmonary emboli Pulmonary emboli appreciated on the left side on CTA 05/21/2024 Because of bleeding not on any anticoagulation S/p IVC filter placement -- Pancreatic CA with ascites -- DNR/DNI with transition to comfort measures Plan: Patient to have paracentesis done today. He has very small right-sided pleural effusion, I did discuss with the interventional radiology if he has significant fluid on the right side on the ultrasound when I do the paracentesis they can do thoracentesis as well. Patient will benefit from incentive spirometry Palliative care note reviewed No indication for bronchoscopy O2 supplementation for comfort. No further recommendation from pulmonary perspective, will sign off Please call directly with any questions Please note the above document was generated using voice recognition software. It may contain grammatical, syntax or spelling errors.Any formal questions or concerns about the content, text or information contained within the body of this dictation should be directly addressed to the provider for clarification. Admission and Anticipated Discharge Date Admission Date: May 21, 2024 Subjective Patient seen and examined at bedside. No acute distress, notable symptoms overnight He was saturating 94-95% on 1 L nasal cannula Was in less respiratory distress compared to yesterday He denied any chest pain, no abdominal pain Positive flatulence, no bowel movement Denied any nausea vomiting Review of Systems 2 Review of Systems: All systems reviewed & are unremarkable except as noted in Subjective Physical Exam 2 Physical Exam: Constitutional: No acute distress HEENT: EOMI, PERRLA Respiratory system: Decreased air entry bilaterally, more decreased on the right, no wheeze, no rhonchi, positive crackles bilaterally CVS: S1-S2 positive, no murmurs or gallops Abdomen: Soft, nontender, positive bowel sounds x4, distended Extremities: +2 pulses bilaterally radialis/ dorsalis pedis, no cyanosis, +3 pitting edema bilateral lower extremity Neuro: Awake alert oriented x3 Psych: Normal mood and affect G/U: No Deng Results & Data Results & Data Vital Signs (Past 12 Hours) Vital Signs O2 Del Method O2 Flow Rate 05/23/24 11:02 Nasal Cannula 1 Laboratory Results 05/22/24 05:21 05/22/24 05:21 PG Care Time/CCT Total # of Minutes Spent Total Time Spent with Patient: Total time spent is greater than 50% in coordination of care (as documented) at patient's floor/unit and/or counseling patient: Coding Level of Care Code 02247 SUB INP/OBS CARE 3/50MIN Diagnoses Deep vein thrombosis, lower right extremity I82.401 Primary pancreatic cancer with metastasis to other site C25.9 Acute hypoxic respiratory failure J96.01 Pulmonary embolism I26.99 Pleural effusion J90
[2024-05-24 08:12] VITALS: TEMP 97.5; O2SAT 97
--- NOTE | 2024-05-24 11:18 | Discharge Summary ---
Discharge Summary Date of Service May 24, 2024 Principal Dx & Hospital Course #1 = Principal Diagnosis (1) Acute hypoxic respiratory failure: (2) Primary pancreatic cancer with metastasis to other site: (3) Malignant ascites: (4) Malignant pleural effusion: (5) Pulmonary embolism: (6) Diabetic peripheral neuropathy associated with type 2 diabetes mellitus: (7) Deep vein thrombosis, lower right extremity: (8) Need for comfort care: (9) Comfort measures only status: (10) Palliative care by specialist: Plan 78-year-old male with PMHx significant for pancreatic cancer, Hx of DVT, dyslipidemia, gout, DM type II, EDWARD, HTN, arthritis who presents with increasing SOB. Pt was hypoxic and volume overloaded with noted progression of his pancreatic mass and progressing lung findings as well. Pt was transferred to [facility] from [facility] after recent discharges from [facility] and [facility]. He expressed wishes to go home with hospice after initially on admission being uncertain. Palliative Care was consulted, and pt was transitioned to comfort measures only on 05/22/24 with goal of getting him home with hospice services. He was discharged on 05/24/24 to home with hospice services. He was being treated for the following: Acute hypoxic respiratory Failure Pt with increased oxygen requirement Likely in setting of volume overload with pleural effusions, ascites, anasarca and pulmonary emboli. Also has a possible malignant lung lesion Oxygen supplementation as needed Pulmonary Emboli Pleural Effusion Possible metastasis to lung Pt with hypercoagulable state in setting of cancer hx of recent DVT and while on anticoagulation had hemorrhagic shock due to gluteal bleed at [facility] with subsequent placement of an IVC filter CTA chest now noting pulmonary emboli, pleural effusion and right sided consolidation Risk of anticoagulation> benefits so anticoagulation held Was on empiric abx, Zosyn and doxycycline Pulmonology was consulted, appreciate recs. Dr Horta noted on 05/23/24: "...Patient to have paracentesis done today. He has very small right-sided pleural effusion, I did discuss with the interventional radiology if he has significant fluid on the right side on the ultrasound when I do the paracentesis they can do thoracentesis as well. Patient will benefit from incentive spirometry. Palliative care note reviewed. No indication for bronchoscopy. O2 supplementation for comfort..." Ascites S/p paracentesis on 05/22 Cult[facility] with [facility] on board, recommended/stated the following on 05/22/24: "...LFT elevation nonspecific, but not obstructive. Mild incr bilirubin ? liver vs other (nutrition, hemolysis, other) No GI intervention available/appropriate at present. Patient was previously deemed a non-surgical candidate. Agree with supportive treatment of malignant ascites. Agree with ongoing discussion with palliative care. Discussed adequate protein/micronutrient nutrition importance/attempts Continue to monitor LFTs..." Appreciate recs Pancreatic Cancer Elevated liver enzymes Bilirubin elevated Pt with known pancreatic cancer, but progressing GI consulted, appreciate recs noted above Palliative Care consulted, appreciate recs -Pt currently comfort measures and was discharged home with hospice services on 05/24/24 as noted above. Chronic Anemia Likely in setting of chronic disease Followed H/H Elevated troponin Likely elevated in setting of demand EKG with sinus tachycardia Downtrended, doubt ACS DMII Insulin sliding scale Continue to monitor glucose levels Notes For Next Care Provider Medication Changes From Visit as above Admission HPI Per Admitting Provider Patient is a 78 gentleman has had a complicated medical history 6 weeks. Patient initially admitted back in April with a pancreatic mass. This was subsequently diagnosed with pancreatic adenocarcinoma. He then returned to [facility] diagnosed with large bowel obstruction and a lower extremity DVT. He was started on anticoagulation and transferred to [facility]. At [facility] he had large-volume blood loss gluteal hemorrhage that required blood transfusions. IVC filter was placed. And a colonic stent was placed. He was then subsequently transferred to [facility] for evaluation of his pancreatic mass. There are determined to be a nonsurgical candidate while there. He also saw palliative care during that hospitalization and results of the conversations that the patient still wanted to pursue all options and remain a full code. From [facility] he was discharged to [facility] for rehabilitation. The goal rehabilitation was to get strong enough so he could undergo some palliative chemotherapy. He was noted to be hypoxic. Chest x-ray yesterday showed a effusion that was resulted today and was sent to the emergency room. In the emergency room was noted to be hypoxic. CT of the chest showed small pleural effusions and almost complete consolidation in the right lower lobe. Also started a large amount of ascites in the upper portion of the abdomen. Patient was referred to our services for ongoing care. Time of my evaluation the patient was saturating well on 2 L. He denied any real significant pain. His was at the bedside. Patient reports that he did have paracentesis 1 time before over the last few weeks and when he was in the hospital and that did help a lot of his symptoms. He is still quite very optimistic and hopeful that he will have some type of opportunity to treat his pancreatic cancer with chemoradiation. He is pursuing options in [place] and at [facility]. He also is somewhat hesitant to go back to [facility]. Denies any fever or chills, no cough or cold symptoms. His abdomen does feel full but has been moving his bowels. States he really has not been doing well with therapy and not really walking much at [facility] at all. However he would really want to go home. Admission Exam Per Admitting Provider Constitutional: Alert, ill in appearance, nontoxic, cachectic and frail HEENT: Mucous membranes dry sclera clear Neck: Soft, no adenopathy Lungs: Decreased breath sounds bilaterally, right side dull to percussion care home up the lung angel, crackles at bases on the left, no wheezes or rhonchi CV: S1-S2, regular Abdomen: Distended, fluid wave, no tenderness no appreciated masses Extremities: Ankle edema with some pretibial edema Musculoskeletal: No significant joint tenderness, evidence of muscle wasting Neuro: No focal deficits generalized weakness Psych: Cooperative, depressed affect Discharge Exam General: Alert, oriented. No acute distress HEENT: NC/AT Abdomen: no sig distention Extremities:+++ edema in lower extremities bilaterally. Updated Medication List Medication Instructions Recorded Confirmed Type celecoxib 200 mg capsule 200 mg PO DAILY 04/21/24 05/22/24 History empagliflozin 25 mg tablet 25 mg PO DAILY 04/21/24 05/22/24 History lactulose 10 gram/15 mL oral 30 ml PO BID 05/07/24 05/22/24 History solution Hospital Stay Data Consultations 05/21/24 14:19 ED Decision to Admit Stat 05/21/24 15:47 Consult Palliative Care Routine Consult Pulmonology Routine 05/22/24 08:58 Consult Gastroenterology Routine Diagnostic Imagining Performed 05/21/24 13:35 CT for pulmonary embolism PE [CT angio chest PE protocol] Stat 05/21/24 15:47 CT abd pelvis wo con Routine 05/22/24 15:47 IR paracentesis abd w/img US Routine 05/23/24 IR paracentesis abd w/img US Routine Chest X-Ray 05/21/24 11:42 XR chest 1V portable CLINICAL HISTORY: Dyspnea COMPARISON STUDY: 05/07/2024 FINDINGS: Inspiration is very shallow which limits the exam. Heart size and pulmonary vasculature are normal. There is mild stranding in the lung bases. No other consolidation or pleural effusion. No pneumothorax. IMPRESSION: Shallow inspiration with likely lung base atelectasis. Consider follow-up 2 view chest with deep inspiration. ACT 112: Negative or not required by law. Electronically signed by: Lalo Leon M.D. 05/21/2024 12:07 PM Chest CTA 05/21/24 13:35 CT angio chest PE protocol CT DOSE: 658.27 mGy.cm HISTORY: PE. TECHNIQUE: Multiple CTA images of the chest were obtained after the intravenous administration of 120 ml Optiray. Coronal and sagittal MIPS were obtained from the axial data set and were submitted for review. All measurements were obtained according to NASCET criteria. A dose lowering technique was utilized adhering to the principles of ALARA. COMPARISON STUDY: 04/22/2024 FINDINGS: There are small bilateral pleural effusions with complete co nsolidation of the right lower lobe and moderate dependent consolidation posterior left lower lobe. There is a progressive 1.5 cm spiculated density posterior inferior right upper lobe series 3 image 72. No pneumothorax. No enlarged adenopathy. No pericardial effusion. No thoracic aortic dissection or aneurysm. There are a few tiny nonocclusive pulmonary emboli in the subsegmental right upper and left lower lobe pulmonary arterial branches. RV to LV ratio is less than 1. There is prominent ascites at the visualized upper abdomen. There are moderate thoracic spine degenerative changes. IMPRESSION: 1. Small nonocclusive pulmonary emboli with minimal clot burden and no evidence of right heart strain. 2. Interval small bilateral pleural effusions. Interval complete consolidation of the right lower lobe and partial consolidation of the left lower lobe, pneumonia versus atelectasis. 3. Increased size of the spiculated nodular density posterior inferior right upper lobe. Malignancy is not excluded. 4. Large amount of ascites in the visualized upper abdomen. ACT 112: Positive. There are findings on this exam that require communication between the performing entity and the patient following Patient Test Result Information Act ([place] Act 112) guidelines. The above report was generated using voice recognition software. It may contain grammatical, syntax or spelling errors. Electronically signed by: Lalo Leon M.D. 05/21/2024 2:09 PM Abdomen/Pelvis CT 05/21/24 15:47 EXAMINATION: Abdomen and pelvis CT without CLINICAL HISTORY: Pancreatic cancer PRIORS: 05/07/2024 TECHNIQUE: Contiguous axial images were obtained through the abdomen and pelvis without the use of intravenous contrast. Sagittal and coronal reformations are supplied. FINDINGS: Examination is limited without the use of intravenous contrast. A large right pleural effusion is present, appearing in the interval. An extremely large volume of ascites is present, markedly progressed in the interval. A bowel stent is present in the left upper quadrant, appearing in the interval. An IVC filter is present. Kidneys are in excretory phase suggesting prior intravenous contrast administration. No extraluminal gas is identified. Anasarca is present, appearing in the interval. Within the limitations of the study, the liver is unchanged. The probable pancreatic mass is identified projecting off of the body/tail, image 39, series 2 measuring at least 5.0 x 3.8 cm. The spleen, stomach and kidneys appear unremarkable. No dilated loops of small bowel. Large amount of formed stool present in the descending and sigmoid colon. A left total hip arthroplasty creates significant beam hardening artifact. In bone windows moderate osseous demineralization with scoliosis and degenerative change of the spine noted. Excreted intravenous contrast present in the urinary bladder. Large amount of free fluid present in the abdomen. IMPRESSION: 1. Large right pleural effusion, appearing in the interval. 2. Markedly increased ascites and anasarca, when compared to 05/07/2024. 3. Bowel stent present in the left upper quadrant, appearing in the interval with solid and liquid material in the lumen. Correlate clinically. 4. Known pancreatic mass. ACT 112: Positive. There are findings on this examination that require communication between the performing entity and the patient following Patient Test Result Information Act ([place] ACT 112) guidelines. Electronically signed by Nai David 05-21-2024 4:30 PM Paracentesis Ultrasound 05/22/24 15:47 ULTRASOUND-GUIDED PARACENTESIS CLINICAL HISTORY: Ascites PROCEDURE: Procedure and risks were explained. Informed consent was obtained. A final timeout was completed. The abdomen was prepped and draped in sterile fashion. 1% lidocaine was utilized for skin anesthesia. Utilizing ultrasound guidance, a 5 [place] safety centesis catheter was advanced into the left lower quadrant pocket of ascites. Ultrasound images were obtained. A total of 4 L of ascites fluid was removed with 1 L sent to the lab for analysis. The catheter was removed and Band-Aid applied. The patient tolerated the procedure well. Vital signs will be monitored postprocedure. IMPRESSION: Ultrasound-guided paracentesis as above. Performed, dictated, and signed by Real France PA-C; to be co-signed by Dr. Lalo Leon. Electronically signed by: Lalo Leon M.D. 05/22/2024 4:05 PM Paracentesis Ultrasound 05/23/24 00:00 ULTRASOUND-GUIDED PARACENTESIS CLINICAL HISTORY: Ascites PROCEDURE: Procedure and risks were explained. Informed consent was obtained. A final timeout was completed. The abdomen was prepped and draped in sterile fashion. 1% lidocaine was utilized for skin anesthesia. Utilizing ultrasound guidance, a 5 [place] safety centesis catheter was advanced into the left lower quadrant pocket of ascites. Ultrasound images were obtained. A total of 4 L of ascites fluid was removed and discarded. The catheter was removed and Band-Aid applied. The patient tolerated the procedure well. Vital signs will be monitored postprocedure. IMPRESSION: Ultrasound-guided paracentesis as above. Performed, dictated, and signed by Real France PA-C; to be co-signed by Dr. Lalo Leon. Electronically signed by: Lalo Leon M.D. 05/23/2024 4:33 PM Discharge Instructions Given to Patient (Per Discharging Provider) Bang, We are discharging you home with hospice services per your request Please keep close followup with your hospice provider after discharge for any additional needs. It was a pleasure taking care of you while you were here. Total Time Total Time Spent Total Time Spent (In Minutes): 60
[2024-05-24] MEDS: LIDOCAINE 5% 1 PATCH TD STA (13:27)
[2024-05-24 15:23] VITALS: BP 128/81; PULSE 95
== END 2024-05-24 16:30 | disposition hospice, home (50) | DRG 435 ==
LOC: ED 11:22 → 2W 15:47 → SUATTDRO 15:47 → 2W 16:52